=== PATIENT | male | born 1985 | race African-American/Black ===

== ENCOUNTER 2020-10-05 12:52 | Inpatient (IN) | payer OTHER ==
[~2020-10-05] VITALS: Ht 175.3 cm; Wt 127.9 kg
[2020-10-05] MEDS ORDERED: IV NORMAL SALINE 1000ML BAG 1,000 ML IV ONE ×2 (18:30→22:00)
--- NOTE | 2020-10-05 18:47 | RAD ---
EXAM: Chest, single view. HISTORY: Jaundice. COMPARISON: None. FINDINGS: A frontal view of the chest is obtained. There is no infiltrate, pleural effusion or pneumo thorax. The heart is normal in size. IMPRESSION: No acute pulmonary finding. Electronically signed by: Stacey Warren MD (10/05/2020 6:44 PM) [facility]
[2020-10-05] MEDS ORDERED: fentaNYL PF VIAL 100 MCG/2 ML VIAL IVP ONE (19:00)
[2020-10-05 20:56] LABS: BASO # 0.1 x10^3/uL (0.0-0.2); BASO % 1 % (0-3); EOS % 0 % (0-3); HEMATOCRIT 42.6 % (39.0-53.0); HEMOGLOBIN 14.7 g/dL (13.0-17.5); LYMPH # 1.7 x10^3/uL (1.0-4.8); LYMPH % 13 % (24-48); MEAN CORPUSCULAR HEMOGLOBIN 33 pg (25-35); MEAN CORPUSCULAR HGB CONC 34 g/dL (31-37); MEAN CORPUSCULAR VOLUME 96 fL (79-100); MONO # 1.7 x10^3/uL (0.0-1.1); MONO % 12 % (0-9); NEUT # 10.5 x10^3/uL (1.8-7.7); NEUT % 75 % (31-73); PLATELET COUNT 119 x10^3/uL (140-400); RED BLOOD COUNT 4.43 x10^6/uL (4.30-5.70); RED CELL DISTRIBUTION WIDTH 15.1 % (11.5-14.5)
--- NOTE | 2020-10-05 20:57 | RAD ---
EXAM: Abdomen sonogram. HISTORY: Pain. TECHNIQUE: Sonographic imaging of the abdomen was performed. COMPARISON: None. FINDINGS: The exam is limited due to bowel gas and body habitus. The liver is enlarged. There is hepa tic steatosis. No focal hepatic lesion is seen. There is cholelithiasis. The gallbladder is distended and there is gallbladder wall thickening. The common bile duct is not well seen. The pancreas is obs cured due to bowel gas. The right kidney and inferior vena cava are unremarkable. IMPRESSION: 1. Hepatomegaly and hepatic steatosis. 2. Cholelithiasis. There is superimposed gallbladder distention and gallbladder wall thickening. This may be due to intrinsic liver disease or cholecystitis. Correlate with symptomatology. The common bi le duct is well seen. 3. Obscured pancreas due to aforementioned study limitations. Electronically signed by: Stacey Warren MD (10/05/2020 8:54 PM) [facility]
--- NOTE | 2020-10-05 20:58 | RAD ---
EXAM: Left lower extremity venous Doppler sonogram. HISTORY: Pain and swelling. TECHNIQUE: Mirza scale and color Doppler sonographic evaluation of the left lower extremity veins with spectral waveform analysis was performed. FINDINGS: The exam is limited due to patient body habitus. There is normal color flow, normal angle sibility and there are normal spectral waveforms in the common femoral, superficial femoral, poplitea l, posterior tibial and greater saphenous veins. There is left lower 70 soft tissue edema. There are enlarged left inguinal lymph nodes with thickened cortices, the largest of which measures 3.1 cm in l sunny axis. IMPRESSION: 1. No Doppler evidence of lower extremity deep venous thrombosis. 2. Left lower extremity soft tissue edema. 3. Left inguinal lymphadenopathy. Electronically signed by: Stacey Warren MD (10/05/2020 8:55 PM) [facility]
[2020-10-05 21:04] LABS: CALCIUM 9.1 mg/dL (8.5-10.1); CREATININE 0.9 mg/dL (0.7-1.3); GFR 116.2; POTASSIUM 3.8 mmol/L (3.5-5.1)
[2020-10-05 21:10] LABS: ALBUMIN 3.4 g/dL (3.4-5.0); ALBUMIN/GLOBULIN RATIO 0.7 (1.0-1.7); DIRECT BILIRUBIN 3.8 mg/dL (0.0-0.2)
[2020-10-05] MEDS ORDERED: PIP/TAZO PER PHARMACY MC PRN (21:45)
[2020-10-05] MEDS ORDERED: ONDANSETRON PF 4 MG/2 ML VIAL. IVP PRN (21:45)
--- NOTE | 2020-10-05 21:54 | PHYS DOC ---
Past Medical History Past Surgical History: Other Additional Past Surgical Histo: 2 ANKLE SX Smoking Status: Never Smoker Alcohol Use: Heavy General Adult EDM: Chief Complaint: ABDOMINAL PAIN HPI: HPI: Patient is a 35 year old male who presents to the emergency department stating he was told to come to the ER for admission by staff at another emergency department so he could be admitted for surgery. Patient reports he has had upper abdominal pain for the past week, intermittent vomiting, intermittent nausea, reports his left lower extremity became very large overnight. Patient reports his pain in his abdomen and left lower extremity at a 7 out of 10. Patient denies chest pain, chest congestion, shortness of breath, recent fever or chills. Patient reports he does not smoke cigarettes, does not use any ill icit drugs, but drinks whiskey from a pint to a pint and a half every 5 days for the past several years. Patient reports he takes Suboxone daily for the past [address] Cody Weiner. Patient reports he was told not to take codeine because he is on Suboxone. Patient states his last surgery was in October 2019 right ankle fracture repaired at [facility]. She denies any other physical complaints or physical concerns. Review of Systems: Review of Systems: 14 body systems of review of systems have been reviewed. See HPI for pertinent positives and negative responses, otherwise all other systems are negative, nonpertinent or noncontributory. Constitutional: Negative except as outlined in HPI above. Skin: Negative except as outlined in HPI above. Eyes: Negative except as outlined in HPI above. HENT: Negative except as outlined in HPI above. Respiratory: Negative except as outlined in HPI above. Cardiovascular: Negative except as outlined in HPI above. GI: Negative except as outlined in HPI above. : Negative except as outlined in HPI above. Musculoskeletal: Negative except as outlined in HPI above. Integument: Negative except as outlined in HPI above. Neurologic: Negative except as outlined in HPI above. Endocrine: Negative except as outlined in HPI above. Lymphatic: Negative except as outlined in HPI above. Psychiatric: Negative except as outlined in HPI above. Heart Score: C/O Chest Pain: No Risk Factors: Risk Factors: DM, Current or recent (<one month) smoker, HTN, HLP, family history of CAD, obesity. Risk Scores: Score 0 - 3: 2.5% MACE over next 6 weeks - Discharge Home Score 4 - 6: 20.3% MACE over next 6 weeks - Admit for Clinical Observation Score 7 - 10: 72.7% MACE over next 6 weeks - Early Invasive Strategies Current Medications: Current Medications Medications (Trade) Dose Ordered Sig/Deangelo Start Time Stop Time Status Last Admin Dose Admin Fentanyl Citrate (Fentanyl 2ml Vial) 75 mcg 1X ONCE 10/05/20 19:00 10/05/20 19:01 DC 10/05/20 21:00 75 MCG Morphine Sulfate (Morphine Sulfate) 4 mg PRN Q2HR PRN 10/05/20 21:45 10/06/20 21:44 UNV Ondansetron HCl (Zofran) 4 mg PRN Q8HRS PRN 10/05/20 21:45 10/06/20 21:44 UNV Piperacillin Sod/ Tazobactam Sod (Zosyn Per Pharmacy) 1 each PRN DAILY PRN 10/05/20 21:45 UNV Sodium Chloride 1,000 ml @ 125 mls/hr 1X ONCE 10/05/20 21:45 10/06/20 05:44 UNV Allergies: Allergies: Allergies Coded Allergies Type Severity Reaction Last Updated Verified codeine Allergy Unknown 10/05/20 Yes Physical Exam: PE: Constitutional: Well developed, well nourished, no acute distress, non-toxic appearance. 35-year-old male no apparent distress. HENT: Normocephalic, atraumatic, bilateral external ears normal, oropharynx moist, no oral exudates, nose normal. No lymphadenopathy of the head and neck appreciated, patient speaking in normal voice tones. Eyes: PERRLA, EOMI, conjunctiva normal, no discharge. Scleral jaundice othe rwise no abnormality of the eyes. Neck: Normal range of motion, no tenderness, supple, no stridor. No nuchal rigidity, no meningeal signs. Cardiovascular:Heart rate regular rhythm, no murmur Lungs & Thorax: Bilateral breath sounds clear to auscultation, all lung gorman, no adventitious lung sounds appreciated. Abdomen: Bowel sounds normal, soft, no tenderness, no masses, no pulsatile masses. Abdomen round, obese, remains soft, no skin discoloration of the abdomen, no ecchymosis appreciated. Skin: Warm, dry, no erythema, no rash. Back: No tenderness, no CVA tenderness. Extremities: No tenderness, no cyanosis, no clubbing, ROM intact, no edema. Except for left lower extremity, 3+ edema from mid thigh to foot. Unable to appreciate pulses, distal cap refill less than 2 seconds. Skin is intact. No loss of sensation. Neurologic: Alert and oriented X 3, normal motor function, normal sensory function, no focal deficits noted. Psychologic: Affect normal, judgement normal, mood normal. Current Patient Data: Labs: Laboratory Tests Test 10/05/20 20:45 White Blood Count 14.0 x10^3/uL (4.0-11.0) H Red Blood Count 4.43 x10^6/uL (4.30-5.70) Hemoglobin 14.7 g/dL (13.0-17.5) Hematocrit 42.6 % (39.0-53.0) Mean Corpuscular Volume 96 fL (79-100) Mean Corpuscular Hemoglobin 33 pg (25-35) Mean Corpuscular Hemoglobin Concent 34 g/dL (31-37) Red Cell Distribution Width 15.1 % (11.5-14.5) H Platelet Count 119 x10^3/uL (140-400) L Neutrophils (%) (Auto) 75 % (31-73) H Lymphocytes (%) (Auto) 13 % (24-48) L Monocytes (%) (Auto) 12 % (0-9) H Eosinophils (%) (Auto) 0 % (0-3) Basophils (%) (Auto) 1 % (0-3) Neutrophils # (Auto) 10.5 x10^3/uL (1.8-7.7) H Lymphocytes # (Auto) 1.7 x10^3/uL (1.0-4.8) Monocytes # (Auto) 1.7 x10^3/uL (0.0-1.1) H Eosinophils # (Auto) 0.0 x10^3/uL (0.0-0.7) Basophils # (Auto) 0.1 x10^3/uL (0.0-0.2) Sodium Level 132 mmol/L (136-145) L Potassium Level 3.8 mmol/L (3.5-5.1) Chloride Level 97 mmol/L (98-107) L Carbon Dioxide Level 29 mmol/L (21-32) Anion Gap 6 (6-14) Blood Urea Nitrogen 14 mg/dL (8-26) Creatinine 0.9 mg/dL (0.7-1.3) Estimated GFR (Cockcroft-Gault) 116.2 BUN/Creatinine Ratio 16 (6-20) Glucose Level 114 mg/dL (70-99) H Calcium Level 9.1 mg/dL (8.5-10.1) Total Bilirubin 5.0 mg/dL (0.2-1.0) H Direct Bilirubin 3.8 mg/dL (0.0-0.2) H Aspartate Amino Transferase (AST) 119 U/L (15-37) H Alanine Aminotransferase (ALT) 64 U/L (16-63) H Alkaline Phosphatase 133 U/L (46-116) H C-Reactive Protein, Quantitative 207.2 mg/L (0-3.3) H Total Protein 8.0 g/dL (6.4-8.2) Albumin 3.4 g/dL (3.4-5.0) Albumin/Globulin Ratio 0.7 (1.0-1.7) L Lipase 89 U/L (73-393) Ethyl Alcohol Level < 10 mg/dL (0-10) Laboratory Tests 10/05/20 20:45 Laboratory Tests 10/05/20 20:45 Vital Signs: Vital Signs Date Time Temp Pulse Resp B/P (MAP) Pulse Ox O2 Delivery O2 Flow Rate FiO2 10/05/20 17:30 98.7 97 16 170/98 96 Room Air 98.7 EKG: EKG: EKG performed at 1817 by ED nursing staff shows a normal sinus rhythm without ectopy, heart rate 91 bpm, IN interval 0.136, QTc interval 0.442, no acute STEMI, no ACS, no acute ischemia appreciated, EKG interpreted by ED attending physician Dr. Suarez. Radiology/Procedures: Radiology/Procedures: PATIENT: EMPERATRIZ PAREDESACCOUNT: [id number] : 1985 LOCATION: ER AGE: 35 SEX: M EXAM STATUS: REG ER ORD. PHYSICIAN: EMPERATRIZ ARMSTRONG APRN REASON: jaundice PROCEDURE: CHEST AP ONLY EXAM: Chest, single view. HISTORY: Jaundice. COMPARISON: None. FINDINGS: A frontal view of the chest is obtained. There is no infiltrate, pleural effusion or pneumothorax. The heart is normal in size. IMPRESSION: No acute pulmonary finding. Electronically signed by: Stacey Dougherty MD (10/05/2020 6:44 PM) [facility] PATIENT: EMPERATRIZ PAREDESACCOUNT: [id number] : 1985 LOCATION: ER AGE: 35 SEX: M EXAM STATUS: REG ER ORD. PHYSICIAN: EMPERATRIZ ARMSTRONG APRN REASON: Lower extremity swelling with pain PROCEDURE: VENOUS LOWER EXTREMITY LEFT EXAM: Left lower extremity venous Doppler sonogram. HISTORY: Pain and swelling. TECHNIQUE: Mirza scale and color Doppler sonographic evaluation of the left lower extremity veins with spectral waveform analysis was performed. FINDINGS: The exam is limited due to patient body habitus. There is normal color flow, normal compressibility and there are normal spectral waveforms in the common femoral, superficial femoral, popliteal, posterior tibial and greater saphenous veins. There is left lower 70 soft tissue edema. There are enlarged left inguinal lymph nodes with thickened cortices, the largest of which measures 3.1 cm in long axis. IMPRESSION: 1. No Doppler evidence of lower extremity deep venous thrombosis. 2. Left lower extremity soft tissue edema. 3. Left inguinal lymphadenopathy. Electronically signed by: Stacey Dougherty MD (10/05/2020 8:55 PM) [facility] DICTATED and SIGNED BY: STACEY DOUGHERTY MD DATE: 10/05/20 [id number] PATIENT: EMPERATRIZ PAREDESACCOUNT: [id number] : 1985 LOCATION: ER AGE: 35 SEX: M EXAM STATUS: REG ER ORD. PHYSICIAN: EMPERATRIZ ARMSTRONG APRN REASON: Upper abdominal pain with gallbladder disease, acute jaundice. PROCEDURE: ABDOMEN LTD EXAM: Abdomen sonogram. HISTORY: Pain. TECHNIQUE: Sonographic imaging of the abdomen was performed. COMPARISON: None. FINDINGS: The exam is limited due to bowel gas and body habitus. The liver is e nlarged. There is hepatic steatosis. No focal hepatic lesion is seen. There is cholelithiasis. The gallbladder is distended and there is gallbladder wall thickening. The common bile duct is not well seen. The pancreas is obscured due to bowel gas. The right kidney and inferior vena cava are unremarkable. IMPRESSION: 1. Hepatomegaly and hepatic steatosis. 2. Cholelithiasis. There is superimposed gallbladder distention and gallbladder wall thickening. This may be due to intrinsic liver disease or cholecystitis. Correlate with symptomatology. The common bile duct is well seen. 3. Obscured pancreas due to aforementioned study limitations. Electronically signed by: Stacey Dougherty MD (10/05/2020 8:54 PM) [facility] Course & Med Decision Making: Course & Med Decision Making Pertinent Labs and Imaging studies reviewed. (See chart for details) 35-year-old male, vital signs reviewed, presents to the emergency department stating that he was told to come here by another emergency department to be admitted and to have surgery. Patient's physical examination concerning for jaundice, liver disease, rule out left lower extremity DVT, cholecystitis. Will order imaging of left lower extremity, limited abdomen sono, labs. Patient's labs concerning for leukocytosis, hyponatremia, hyperbilirubinemia, increased liver enzymes, patient's reported imaging shows cholecystitis, no DVT of the left lower extremity however adenopathy of the left groin area. Discussed with patient will admit, patient is amenable to this plan. Discussed patient case and emergency department work-up with [facility] inpatient physician Dr. Stoddard who agrees patient's case warrants admission, Dr. Stoddard recommended Zosyn antibiotic per pharmacy, consult infectious disease, GI, surgery, admit to medical surgical unit. Patient is awaiting room number from plumbing warehouse helper at this time. Patient is hemodynamically stable and in no apparent distress at admission time. Dragon Disclaimer: Dragon Disclaimer: This electronic medical record was generated, in whole or in part, using a voice recognition dictation system. Departure Departure Impression: Primary Impression: Hyperbilirubinemia Additional Impressions: Jaundice Hyponatremia Elevated liver enzymes Cholecystitis Inguinal lymphadenopathy Disposition: ADMITTED INPATIENT Admitting Physician: HIMS (Admit to Dr. Stoddard to medical surgical unit.) Condition: STABLE Referrals: NO PCP (PCP) EMPERATRIZ ARMSTRONG APRN Oct 05, 2020 21:54
[2020-10-05] MEDS: PIPERACILLIN/TAZOBACTAM 3.375 GM in IV NORMAL SALINE 50ML 50 ML IV SCH (22:00)
[2020-10-05 23:40] VITALS: BP 152/98
[2020-10-06] MEDS: MORPHINE SULFATE 4 MG/ML INJ. IVP PRN ×3 (00:26→15:11)
[2020-10-06 03:00] VITALS: BP 133/78
[2020-10-06] MEDS ORDERED: BUPR8TAB SL (03:56)
[2020-10-06 04:29] LABS: BASO # 0.1 x10^3/uL (0.0-0.2); BASO % 0 % (0-3); EOS % 0 % (0-3); HEMATOCRIT 38.3 % (39.0-53.0); HEMOGLOBIN 13.3 g/dL (13.0-17.5); LYMPH # 2.4 x10^3/uL (1.0-4.8); LYMPH % 17 % (24-48); MEAN CORPUSCULAR HEMOGLOBIN 34 pg (25-35); MEAN CORPUSCULAR HGB CONC 35 g/dL (31-37); MEAN CORPUSCULAR VOLUME 97 fL (79-100); MONO % 14 % (0-9); NEUT # 9.4 x10^3/uL (1.8-7.7); NEUT % 68 % (31-73); PLATELET COUNT 113 x10^3/uL (140-400); RED BLOOD COUNT 3.95 x10^6/uL (4.30-5.70); WHITE BLOOD COUNT 13.9 x10^3/uL (4.0-11.0)
[2020-10-06 04:35] LABS: PROTHROMBIN TIME PATIENT 16.1 SEC (11.7-14.0)
[2020-10-06 04:53] LABS: ALBUMIN 2.8 g/dL (3.4-5.0); ALBUMIN/GLOBULIN RATIO 0.6 (1.0-1.7); CALCIUM 8.6 mg/dL (8.5-10.1); CREATININE 0.8 mg/dL (0.7-1.3); GFR 133.1; POTASSIUM 3.6 mmol/L (3.5-5.1); TOTAL BILIRUBIN 4.8 mg/dL (0.2-1.0); TOTAL PROTEIN 7.2 g/dL (6.4-8.2)
[2020-10-06] MEDS: PIPERACILLIN/TAZOBACTAM 3.375 GM in IV NORMAL SALINE 50ML 50 ML IV SCH (05:35)
[2020-10-06 05:43] LABS: BILIRUBIN,URINE MODERATE (NEG); CLARITY,URINE CLEAR; NITRITE,URINE NEGATIVE (NEG); PROTEIN,URINE NEGATIVE (NEG-TRACE)
[2020-10-06 05:51] LABS: % LYMPHS 20 % (24-48); % MONOS 11 % (0-10); % SEGS 69 % (35-66)
[2020-10-06 05:52] LABS: PLT ESTIMATE DECREASED (ADEQUATE)
[2020-10-06 06:05] LABS: COLOR,URINE AMBER
[2020-10-06 06:08] LABS: BACTERIA,URINE 0 /HPF (0-FEW); RBC,URINE 20-40 /HPF (0-2); WBC,URINE OCC /HPF (0-4)
[2020-10-06] MEDS ORDERED: ACETAMINOPHEN 325 MG TABLET. PO PRN (06:45)
[2020-10-06] MEDS ORDERED: MAGNESIUM HYDROXIDE 2,400 MG/30 ML ORAL.SUSP. PO PRN (06:45)
[2020-10-06] MEDS ORDERED: MAG HYDROX/ALUMINUM HYD/SIMETH 30 ML ORAL.SUSP PO PRN (06:45)
[2020-10-06] MEDS ORDERED: CALCIUM CARBONATE 500 MG TAB.CHEW PO PRN (06:45)
[2020-10-06] MEDS ORDERED: ONDANSETRON PF 4 MG/2 ML VIAL. IVP PRN (06:45)
--- NOTE | 2020-10-06 06:57 | PDOC1 ---
History and Physical Date of Admission Date of Admission DATE: 10/06/20 TIME: 06:30 Identification/Chief Complaint Chief Complaint Abdominal pain Source Source: Chart review, Patient History of Present Illness History of Present Illness Patient is a 35-year-old male with past medical history alcohol abuse, narcotic dependence, morbid obesity, who presents to the ED with complaints of left upper quadrant abdominal pain for the past week. He reports abdominal pain 7/10, with associated intermittent nausea and vomiting. Also notes left lower extremity swelling and pain for the past 2 days. He notes associated drainage from his left ankle, but is unsure if this is been purulent drainage. He does have a history of left lower extremity surgery requiring surgical fixation; states that this was complicated by MRSA infected hardware, which was subsequently removed. He reports regular heavy alcohol intake and takes daily Suboxone for history of narcotic dependence. Labs on admission showed WBC 14, platelets 119, sodium 132, CBG 114, AST 119, ALT 64, CRP 207.2, albumin 2.8, PT 16.1, INR 1.3. Abdominal ultrasound showed cholelithiasis, superimposed gallbladder distention and gallbladder wall thickening, suggestive of cholecystitis. He received bro ad-spectrum antibiotics and IV fluids. Will admit for further medical management. Past Medical History Past Medical History Narcotic dependence, alcohol abuse, morbid obesity Past Surgical History Past Surgical History Left ankle surgery Social History Smoke: No ALCOHOL: heavy Drugs: None Current Problem List Problem List Problems Medical Problems: (1) Cholecystitis Status: Acute (2) Elevated liver enzymes Status: Acute (3) Hyperbilirubinemia Status: Acute (4) Hyponatremia Status: Acute (5) Inguinal lymphadenopathy Status: Acute (6) Jaundice Status: Acute Current Medications Current Medications Current Medications Fentanyl Citrate (Fentanyl 2ml Vial) 75 mcg 1X ONCE IVP Last administered on 10/05/20at 21:00; Start 10/05/20 at 19:00; Stop 10/05/20 at 19:01; Status DC Sodium Chloride 1,000 ml @ 1,000 mls/hr 1X ONCE IV Last administered on 10/05/20at 21:00; Start 10/05/20 at 18:30; Stop 10/05/20 at 19:29; Status DC Ondansetron HCl (Zofran) 4 mg PRN Q8HRS PRN IVP NAUSEA/VOMITING 1ST CHOICE; Start 10/05/20 at 21:45; Stop 10/06/20 at 21:44 Morphine Sulfate (Morphine Sulfate) 4 mg PRN Q2HR PRN IVP SEVERE PAIN 7-10 Last administered on 10/06/20at 05:33; Start 10/05/20 at 21:45; Stop 10/06/20 at 21:44 Piperacillin Sod/ Tazobactam Sod (Zosyn Per Pharmacy) 1 each PRN DAILY PRN MC SEE COMMENTS; Start 10/05/20 at 21:45 Sodium Chloride 1,000 ml @ 125 mls/hr 1X ONCE IV Last administered on 10/06/20at 00:27; Start 10/05/20 at 22:00; Stop 10/06/20 at 05:59; Status DC Piperacillin Sod/ Tazobactam Sod 3.375 gm/Sodium Chloride 50 ml @ 100 mls/hr Q6HRS IV Last administered on 10/06/20at 05:35; Start 10/05/20 at 22:00 Active Scripts Active Reported Buprenorphine Hcl 8 Mg Tab.subl 8 Mg SL DAILY 30 Days Allergies Allergies: Coded Allergies: I S O L A T I O N *CONTACT* (Verified Allergy, Unknown, 10/06/20) Hx MRSA, VRE No Known Allergies (Verified Allergy, Unknown, 10/06/20) ROS Review of System GENERAL: No history of weight change, weakness or fevers. SKIN: No bruising, hair changes or rashes. EYES: No blurred, double or loss of vision. NOSE AND THROAT: No history of nosebleeds, hoarseness or sore throat. HEART: Denies chest pain, denies palpitations. LUNGS: Denies cough, hemoptysis, wheezing or shortness of breath. GASTROINTESTINAL: Abdominal pain, nausea, vomiting. GENITOURINARY: Denies dysuria, frequency, urgency, hematuria. NEUROLOGIC: Denies history of numbness, tingling, tremor or weakness. PSYCHIATRIC: Denies anxiety, denies depression. ENDOCRINE: No history of heat or cold intolerance, polyuria or polydipsia. EXTREMITIES: Denies muscle weakness, joint pain, pain on walking or stiffness. Physical Exam Physical Exam General: Alert, Oriented X3, Cooperative, No acute distress. Morbidly obese. HEENT: PERRLA, EOMI Lungs: Clear to auscultation, Normal air movement Heart: RRR, no murmurs Cardiovascular: S1, S2 Abdomen: Normal bowel sounds, Soft, No tenderness Extremities: Left lower extremity 3+ edema. Left inguinal lymphadenopathy. No clubbing, No cyanosis Skin: Patchy areas of erythema extending from left ankle to proximal left thigh. Neuro: Normal speech, Normal tone, Sensation intact Psych/Mental Status: Mental status NL, Mood NL Vitals Vitals Vital Signs Date Time Temp Pulse Resp B/P (MAP) Pulse Ox O2 Delivery O2 Flow Rate FiO2 10/06/20 06:03 96 Room Air 10/06/20 03:00 98.7 89 18 133/78 (96) 98.7 Labs Labs Laboratory Tests Test 10/05/20 20:45 10/06/20 03:20 10/06/20 05:25 White Blood Count 14.0 x10^3/uL (4.0-11.0) 13.9 x10^3/uL (4.0-11.0) Red Blood Count 4.43 x10^6/uL (4.30-5.70) 3.95 x10^6/uL (4.30-5.70) Hemoglobin 14.7 g/dL (13.0-17.5) 13.3 g/dL (13.0-17.5) Hematocrit 42.6 % (39.0-53.0) 38.3 % (39.0-53.0) Mean Corpuscular Volume 96 fL (79-100) 97 fL (79-100) Mean Corpuscular Hemoglobin 33 pg (25-35) 34 pg (25-35) Mean Corpuscular Hemoglobin Concent 34 g/dL (31-37) 35 g/dL (31-37) Red Cell Distribution Width 15.1 % (11.5-14.5) 15.0 % (11.5-14.5) Platelet Count 119 x10^3/uL (140-400) 113 x10^3/uL (140-400) Neutrophils (%) (Auto) 75 % (31-73) 68 % (31-73) Lymphocytes (%) (Auto) 13 % (24-48) 17 % (24-48) Monocytes (%) (Auto) 12 % (0-9) 14 % (0-9) Eosinophils (%) (Auto) 0 % (0-3) 0 % (0-3) Basophils (%) (Auto) 1 % (0-3) 0 % (0-3) Neutrophils # (Auto) 10.5 x10^3/uL (1.8-7.7) 9.4 x10^3/uL (1.8-7.7) Lymphocytes # (Auto) 1.7 x10^3/uL (1.0-4.8) 2.4 x10^3/uL (1.0-4.8) Monocytes # (Auto) 1.7 x10^3/uL (0.0-1.1) 2.0 x10^3/uL (0.0-1.1) Eosinophils # (Auto) 0.0 x10^3/uL (0.0-0.7) 0.0 x10^3/uL (0.0-0.7) Basophils # (Auto) 0.1 x10^3/uL (0.0-0.2) 0.1 x10^3/uL (0.0-0.2) Sodium Level 132 mmol/L (136-145) 134 mmol/L (136-145) Potassium Level 3.8 mmol/L (3.5-5.1) 3.6 mmol/L (3.5-5.1) Chloride Level 97 mmol/L (98-107) 101 mmol/L (98-107) Carbon Dioxide Level 29 mmol/L (21-32) 26 mmol/L (21-32) Anion Gap 6 (6-14) 7 (6-14) Blood Urea Nitrogen 14 mg/dL (8-26) 14 mg/dL (8-26) Creatinine 0.9 mg/dL (0.7-1.3) 0.8 mg/dL (0.7-1.3) Estimated GFR (Cockcroft-Gault) 116.2 133.1 BUN/Creatinine Ratio 16 (6-20) 18 (6-20) Glucose Level 114 mg/dL (70-99) 106 mg/dL (70-99) Calcium Level 9.1 mg/dL (8.5-10.1) 8.6 mg/dL (8.5-10.1) Total Bilirubin 5.0 mg/dL (0.2-1.0) 4.8 mg/dL (0.2-1.0) Direct Bilirubin 3.8 mg/dL (0.0-0.2) Aspartate Amino Transf (AST/SGOT) 119 U/L (15-37) 92 U/L (15-37) Alanine Aminotransferase (ALT/SGPT) 64 U/L (16-63) 49 U/L (16-63) Alkaline Phosphatase 133 U/L (46-116) 113 U/L (46-116) C-Reactive Protein, Quantitative 207.2 mg/L (0-3.3) Total Protein 8.0 g/dL (6.4-8.2) 7.2 g/dL (6.4-8.2) Albumin 3.4 g/dL (3.4-5.0) 2.8 g/dL (3.4-5.0) Albumin/Globulin Ratio 0.7 (1.0-1.7) 0.6 (1.0-1.7) Lipase 89 U/L (73-393) Ethyl Alcohol Level < 10 mg/dL (0-10) Segmented Neutrophils % 69 % (35-66) Lymphocytes % 20 % (24-48) Monocytes % 11 % (0-10) Platelet Estimate Decreased (ADEQUATE) Large Platelets Occ Prothrombin Time 16.1 SEC (11.7-14.0) Prothromb Time International Ratio 1.3 (0.8-1.1) Urine Collection Type Unknown Urine Color Johanny Urine Clarity Clear Urine pH 6.0 (<5.0-8.0) Urine Specific [place] 1.025 (1.000-1.030) Urine Protein Negative mg/dL (NEG-TRACE) Urine Glucose (UA) Negative mg/dL (NEG) Urine Ketones (Stick) Trace mg/dL (NEG) Urine Blood Large (NEG) Urine Nitrite Negative (NEG) Urine Bilirubin Moderate (NEG) Urine Urobilinogen Dipstick 4.0 mg/dL (0.2 mg/dL) Urine Leukocyte Esterase Trace (NEG) Urine RBC 20-40 /HPF (0-2) Urine WBC Occ /HPF (0-4) Urine Squamous Epithelial Cells Occ /LPF Urine Bacteria 0 /HPF (0-FEW) Urine Mucus Slight /LPF Laboratory Tests Test 10/05/20 20:45 10/06/20 03:20 10/06/20 05:25 White Blood Count 14.0 x10^3/uL (4.0-11.0) 13.9 x10^3/uL (4.0-11.0) Red Blood Count 4.43 x10^6/uL (4.30-5.70) 3.95 x10^6/uL (4.30-5.70) Hemoglobin 14.7 g/dL (13.0-17.5) 13.3 g/dL (13.0-17.5) Hematocrit 42.6 % (39.0-53.0) 38.3 % (39.0-53.0) Mean Corpuscular Volume 96 fL (79-100) 97 fL (79-100) Mean Corpuscular Hemoglobin 33 pg (25-35) 34 pg (25-35) Mean Corpuscular Hemoglobin Concent 34 g/dL (31-37) 35 g/dL (31-37) Red Cell Distribution Width 15.1 % (11.5-14.5) 15.0 % (11.5-14.5) Platelet Count 119 x10^3/uL (140-400) 113 x10^3/uL (140-400) Neutrophils (%) (Auto) 75 % (31-73) 68 % (31-73) Lymphocytes (%) (Auto) 13 % (24-48) 17 % (24-48) Monocytes (%) (Auto) 12 % (0-9) 14 % (0-9) Eosinophils (%) (Auto) 0 % (0-3) 0 % (0-3) Basophils (%) (Auto) 1 % (0-3) 0 % (0-3) Neutrophils # (Auto) 10.5 x10^3/uL (1.8-7.7) 9.4 x10^3/uL (1.8-7.7) Lymphocytes # (Auto) 1.7 x10^3/uL (1.0-4.8) 2.4 x10^3/uL (1.0-4.8) Monocytes # (Auto) 1.7 x10^3/uL (0.0-1.1) 2.0 x10^3/uL (0.0-1.1) Eosinophils # (Auto) 0.0 x10^3/uL (0.0-0.7) 0.0 x10^3/uL (0.0-0.7) Basophils # (Auto) 0.1 x10^3/uL (0.0-0.2) 0.1 x10^3/uL (0.0-0.2) Sodium Level 132 mmol/L (136-145) 134 mmol/L (136-145) Potassium Level 3.8 mmol/L (3.5-5.1) 3.6 mmol/L (3.5-5.1) Chloride Level 97 mmol/L (98-107) 101 mmol/L (98-107) Carbon Dioxide Level 29 mmol/L (21-32) 26 mmol/L (21-32) Anion Gap 6 (6-14) 7 (6-14) Blood Urea Nitrogen 14 mg/dL (8-26) 14 mg/dL (8-26) Creatinine 0.9 mg/dL (0.7-1.3) 0.8 mg/dL (0.7-1.3) Estimated GFR (Cockcroft-Gault) 116.2 133.1 BUN/Creatinine Ratio 16 (6-20) 18 (6-20) Glucose Level 114 mg/dL (70-99) 106 mg/dL (70-99) Calcium Level 9.1 mg/dL (8.5-10.1) 8.6 mg/dL (8.5-10.1) Total Bilirubin 5.0 mg/dL (0.2-1.0) 4.8 mg/dL (0.2-1.0) Direct Bilirubin 3.8 mg/dL (0.0-0.2) Aspartate Amino Transf (AST/SGOT) 119 U/L (15-37) 92 U/L (15-37) Alanine Aminotransferase (ALT/SGPT) 64 U/L (16-63) 49 U/L (16-63) Alkaline Phosphatase 133 U/L (46-116) 113 U/L (46-116) C-Reactive Protein, Quantitative 207.2 mg/L (0-3.3) Total Protein 8.0 g/dL (6.4-8.2) 7.2 g/dL (6.4-8.2) Albumin 3.4 g/dL (3.4-5.0) 2.8 g/dL (3.4-5.0) Albumin/Globulin Ratio 0.7 (1.0-1.7) 0.6 (1.0-1.7) Lipase 89 U/L (73-393) Ethyl Alcohol Level < 10 mg/dL (0-10) Segmented Neutrophils % 69 % (35-66) Lymphocytes % 20 % (24-48) Monocytes % 11 % (0-10) Platelet Estimate Decreased (ADEQUATE) Large Platelets Occ Prothrombin Time 16.1 SEC (11.7-14.0) Prothromb Time International Ratio 1.3 (0.8-1.1) Urine Collection Type Unknown Urine Color Johanny Urine Clarity Clear Urine pH 6.0 (<5.0-8.0) Urine Specific [place] 1.025 (1.000-1.030) Urine Protein Negative mg/dL (NEG-TRACE) Urine Glucose (UA) Negative mg/dL (NEG) Urine Ketones (Stick) Trace mg/dL (NEG) Urine Blood Large (NEG) Urine Nitrite Negative (NEG) Urine Bilirubin Moderate (NEG) Urine Urobilinogen Dipstick 4.0 mg/dL (0.2 mg/dL) Urine Leukocyte Esterase Trace (NEG) Urine RBC 20-40 /HPF (0-2) Urine WBC Occ /HPF (0-4) Urine Squamous Epithelial Cells Occ /LPF Urine Bacteria 0 /HPF (0-FEW) Urine Mucus Slight /LPF Images Images PATIENT: EMPERATRIZ PAREDESACCOUNT: [id number] : 1985 LOCATION: ER AGE: 35 SEX: M EXAM STATUS: REG ER ORD. PHYSICIAN: EMPERATRIZ ARMSTRONG APRN REASON: Upper abdominal pain with gallbladder disease, acute jaundice. PROCEDURE: ABDOMEN LTD EXAM: Abdomen sonogram. HISTORY: Pain. TECHNIQUE: Sonographic imaging of the abdomen was performed. COMPARISON: None. FINDINGS: The exam is limited due to bowel gas and body habitus. The liver is enlarged. There is hepatic steatosis. No focal hepatic lesion is seen. There is cholelithiasis. The gallbladder is distended and there is gallbladder wall thickening. The common bile duct is not well seen. The pancreas is obscured due to bowel gas. The right kidney and inferior vena cava are unremarkable. IMPRESSION: 1. Hepatomegaly and hepatic steatosis. 2. Cholelithiasis. There is superimposed gallbladder distention and gallbladder wall thickening. This may be due to intrinsic liver disease or cholecystitis. Correlate with symptomatology. The common bile duct is well seen. 3. Obscured pancreas due to aforementioned study limitations. PATIENT: VANESSA PAREDESUNT: [id number] : 1985 LOCATION: ER AGE: 35 SEX: M EXAM STATUS: REG ER ORD. PHYSICIAN: EMPERATRIZ ARMSTRONG APRN REASON: Lower extremity swelling with pain PROCEDURE: VENOUS LOWER EXTREMITY LEFT EXAM: Left lower extremity venous Doppler sonogram. HISTORY: Pain and swelling. TECHNIQUE: Mirza scale and color Doppler sonographic evaluation of the left lower extremity veins with spectral waveform analysis was performed. FINDINGS: The exam is limited due to patient body habitus. There is normal color flow, normal compressibility and there are normal spectral waveforms in the common femoral, superficial femoral, popliteal, posterior tibial and greater saphenous veins. There is left lower 70 soft tissue edema. There are enlarged le ft inguinal lymph nodes with thickened cortices, the largest of which measures 3.1 cm in long axis. IMPRESSION: 1. No Doppler evidence of lower extremity deep venous thrombosis. 2. Left lower extremity soft tissue edema. 3. Left inguinal lymphadenopathy. PATIENT: EMPERATRIZ PAREDESACCOUNT: [id number] : 1985 LOCATION: ER AGE: 35 SEX: M EXAM STATUS: REG ER ORD. PHYSICIAN: EMPERATRIZ ARMSTRONG APRN REASON: jaundice PROCEDURE: CHEST AP ONLY EXAM: Chest, single view. HISTORY: Jaundice. COMPARISON: None. FINDINGS: A frontal view of the chest is obtained. There is no infiltrate, pleural effusion or pneumothorax. The heart is normal in size. IMPRESSION: No acute pulmonary finding. VTE Prophylaxis Ordered VTE Prophylaxis Devices: No VTE Pharmacological Prophylaxi: Yes Assessment/Plan Assessment/Plan Acute cholecystitis Left lower extremity cellulitis Left inguinal lymphadenopathy Narcotic dependence Morbid obesity Plan: Continue treatment with IV Rocephin, per ID Consultation placed to general surgery, GI, and ID Left inguinal lymphadenopathy seen on ultrasound likely reactive due to infect ious process; recommend follow-up to ensure resolution. No evidence of DVT seen on ultrasound left lower extremity; will obtain echocardiogram. Resume home medications FEN - NPO PPX - Heparin FULL CODE Dispo - inpatient for above Patient names his (Ni Lee) as surrogate decision-maker Justifications for Admission Other Justification ROSIE TODD MD Oct 06, 2020 06:57
[2020-10-06] MEDS ORDERED: PERFLUTREN PROTEIN-A MICROSPHR 0.22 MG/ML 3 ML VIAL. IV ONE ×3 (08:43→09:00)
[2020-10-06] MEDS: NON FORMULARY ITEM (Buprenorphine Hcl 8 MG) SL SCH (09:00)
--- NOTE | 2020-10-06 09:02 | PDOC2 ---
GI CONSULT Date of Service: DATE: 10/06/20 TIME: 09:01 Reason For Consult: elevated bilirubin and LFTs HPI: HPI: 35 y/o male who recently had some upper abd pain and fever that have resolved. Biggest concern now is LLE pain/swelling. Denies reflux, dysphagia, n/v, chronic abd pain, diarrhea, constipation, hematochezia, melena, and weight loss. No previous EGD or colonoscopy. Was told he had gallstones at [facility] last week (when seen for abd pain) and needed to have them checked along w/ enlarged lymph nodes in groin but couldn't be transferred here so he was told to just come here on his own. Says he had a CT there. Denies liver, pancreas, or PUD history. H/o chronic narcotic use after accident caused mouth pain - now on buprenorphine. He's hungry. PMH: PMH: HTN, asthma, MRSA, VRE left ankle surgery/hardware/infection FH: Family History: No pertinent hx (denies GI cancers) Social History: Smoke: No ALCOHOL: heavy (1 pint daily now - heavier in past) Drugs: None ROS: GEN: +fever HEENT: Denies blurred vision, sore throat CV: Denies chest pain RESP: Denies shortness of air, cough GI: Per HPI : Denies hematuria, dysuria ENDO: Denies weight changes NEURO: Denies confusion, dizziness MSK: LLE pain SKIN: Denies jaundice, pruritus Vitals: Vitals: Vital Signs Date Time Temp Pulse Resp B/P (MAP) Pulse Ox O2 Delivery O2 Flow Rate FiO2 10/06/20 06:03 96 Room Air 10/06/20 03:00 98.7 89 18 133/78 (96) 98.7 Labs: Labs: Laboratory Tests Test 10/05/20 20:45 10/06/20 03:20 10/06/20 05:25 White Blood Count 14.0 x10^3/uL (4.0-11.0) 13.9 x10^3/uL (4.0-11.0) Red Blood Count 4.43 x10^6/uL (4.30-5.70) 3.95 x10^6/uL (4.30-5.70) Hemoglobin 14.7 g/dL (13.0-17.5) 13.3 g/dL (13.0-17.5) Hematocrit 42.6 % (39.0-53.0) 38.3 % (39.0-53.0) Mean Corpuscular Volume 96 fL (79-100) 97 fL (79-100) Mean Corpuscular Hemoglobin 33 pg (25-35) 34 pg (25-35) Mean Corpuscular Hemoglobin Concent 34 g/dL (31-37) 35 g/dL (31-37) Red Cell Distribution Width 15.1 % (11.5-14.5) 15.0 % (11.5-14.5) Platelet Count 119 x10^3/uL (140-400) 113 x10^3/uL (140-400) Neutrophils (%) (Auto) 75 % (31-73) 68 % (31-73) Lymphocytes (%) (Auto) 13 % (24-48) 17 % (24-48) Monocytes (%) (Auto) 12 % (0-9) 14 % (0-9) Eosinophils (%) (Auto) 0 % (0-3) 0 % (0-3) Basophils (%) (Auto) 1 % (0-3) 0 % (0-3) Neutrophils # (Auto) 10.5 x10^3/uL (1.8-7.7) 9.4 x10^3/uL (1.8-7.7) Lymphocytes # (Auto) 1.7 x10^3/uL (1.0-4.8) 2.4 x10^3/uL (1.0-4.8) Monocytes # (Auto) 1.7 x10^3/uL (0.0-1.1) 2.0 x10^3/uL (0.0-1.1) Eosinophils # (Auto) 0.0 x10^3/uL (0.0-0.7) 0.0 x10^3/uL (0.0-0.7) Basophils # (Auto) 0.1 x10^3/uL (0.0-0.2) 0.1 x10^3/uL (0.0-0.2) Sodium Level 132 mmol/L (136-145) 134 mmol/L (136-145) Potassium Level 3.8 mmol/L (3.5-5.1) 3.6 mmol/L (3.5-5.1) Chloride Level 97 mmol/L (98-107) 101 mmol/L (98-107) Carbon Dioxide Level 29 mmol/L (21-32) 26 mmol/L (21-32) Anion Gap 6 (6-14) 7 (6-14) Blood Urea Nitrogen 14 mg/dL (8-26) 14 mg/dL (8-26) Creatinine 0.9 mg/dL (0.7-1.3) 0.8 mg/dL (0.7-1.3) Estimated GFR (Cockcroft-Gault) 116.2 133.1 BUN/Creatinine Ratio 16 (6-20) 18 (6-20) Glucose Level 114 mg/dL (70-99) 106 mg/dL (70-99) Calcium Level 9.1 mg/dL (8.5-10.1) 8.6 mg/dL (8.5-10.1) Total Bilirubin 5.0 mg/dL (0.2-1.0) 4.8 mg/dL (0.2-1.0) Direct Bilirubin 3.8 mg/dL (0.0-0.2) Aspartate Amino Transf (AST/SGOT) 119 U/L (15-37) 92 U/L (15-37) Alanine Aminotransferase (ALT/SGPT) 64 U/L (16-63) 49 U/L (16-63) Alkaline Phosphatase 133 U/L (46-116) 113 U/L (46-116) C-Reactive Protein, Quantitative 207.2 mg/L (0-3.3) Total Protein 8.0 g/dL (6.4-8.2) 7.2 g/dL (6.4-8.2) Albumin 3.4 g/dL (3.4-5.0) 2.8 g/dL (3.4-5.0) Albumin/Globulin Ratio 0.7 (1.0-1.7) 0.6 (1.0-1.7) Lipase 89 U/L (73-393) Ethyl Alcohol Level < 10 mg/dL (0-10) Segmented Neutrophils % 69 % (35-66) Lymphocytes % 20 % (24-48) Monocytes % 11 % (0-10) Platelet Estimate Decreased (ADEQUATE) Large Platelets Occ Prothrombin Time 16.1 SEC (11.7-14.0) Prothromb Time International Ratio 1.3 (0.8-1.1) Urine Collection Type Unknown Urine Color Johanny Urine Clarity Clear Urine pH 6.0 (<5.0-8.0) Urine Specific [place] 1.025 (1.000-1.030) Urine Protein Negative mg/dL (NEG-TRACE) Urine Glucose (UA) Negative mg/dL (NEG) Urine Ketones (Stick) Trace mg/dL (NEG) Urine Blood Large (NEG) Urine Nitrite Negative (NEG) Urine Bilirubin Moderate (NEG) Urine Urobilinogen Dipstick 4.0 mg/dL (0.2 mg/dL) Urine Leukocyte Esterase Trace (NEG) Urine RBC 20-40 /HPF (0-2) Urine WBC Occ /HPF (0-4) Urine Squamous Epithelial Cells Occ /LPF Urine Bacteria 0 /HPF (0-FEW) Urine Mucus Slight /LPF Allergies: Coded Allergies: I S O L A T I O N *CONTACT* (Verified Allergy, Unknown, 10/06/20) Hx MRSA, VRE No Known Allergies (Verified Allergy, Unknown, 10/06/20) Medications: Current Medications Medications (Trade) Dose Ordered Sig/Deangelo Route PRN Reason Start Time Stop Time Status Last Admin Dose Admin Fentanyl Citrate (Fentanyl 2ml Vial) 75 mcg 1X ONCE IVP 10/05/20 19:00 10/05/20 19:01 DC 10/05/20 21:00 Sodium Chloride 1,000 ml @ 1,000 mls/hr 1X ONCE IV 10/05/20 18:30 10/05/20 19:29 DC 10/05/20 21:00 Morphine Sulfate (Morphine Sulfate) 4 mg PRN Q2HR PRN IVP SEVERE PAIN 7-10 10/05/20 21:45 10/06/20 21:44 10/06/20 05:33 Sodium Chloride 1,000 ml @ 125 mls/hr 1X ONCE IV 10/05/20 22:00 10/06/20 05:59 DC 10/06/20 00:27 Piperacillin Sod/ Tazobactam Sod 3.375 gm/Sodium Chloride 50 ml @ 100 mls/hr Q6HRS IV 10/05/20 22:00 10/06/20 05:35 Imaging: Imaging: Echo pending Abd US IMPRESSION: 1. Hepatomegaly and hepatic steatosis. 2. Cholelithiasis. There is superimposed gallbladder distention and gallbladder wall thickening. This may be due to intrinsic liver disease or cholecystitis. Correlate with symptomatology. The common bile duct is well seen. 3. Obscured pancreas due to aforementioned study limitations. LE US IMPRESSION: 1. No Doppler evidence of lower extremity deep venous thrombosis. 2. Left lower extremity soft tissue edema. 3. Left inguinal lymphadenopathy. CXR IMPRESSION: No acute pulmonary finding. PE: GEN: NAD HEENT: Atraumatic, PERRL LUNGS: CTAB HEART: RRR ABD: large, non-tender, quiet BS EXTREMITY: LLE swelling SKIN: dressing left ankle NEURO/PSYCH: A & O 3 A/P: A/P: LLE cellulitis/left inguinal adenopathy, h/o ankle surgery/hardware/infection - ID following Leukocytosis, thrombocytopenia, mild coagulopathy, elevated LFTs (some better), elevated CRP Hepatomegaly/hepatic steatosis. Cholelithiasis, superimposed GB distention and wall thickening - CBD not well seen CRC screen - average risk Narcotic dependency, alcohol overuse COVID negative -- Suspect LFTs related to alcohol overuse - however, will check Hepatitis panel for completeness. Follow labs, observe for recurrence of upper abd pain. Would be beneficial to review CT report from [facility] - these records not available to me - will attempt to get or could consider repeating here. Okay w/ GI to advance diet. ANDREE LOPES Oct 06, 2020 09:02
--- NOTE | 2020-10-06 09:35 | PDOC2 ---
[facility] [employer] [facility] 10/06/20 0935: CONSULT Date of Consult Date of Consult DATE: 10/06/20 TIME: 09:25 Reason for Consult Reason for Consult: cholecystitis Referring Physician Referring Physician: ER Identification/Chief Complaint Chief Complaint leg swelling Source Source: Chart review, Patient History of Present Illness Reason for Visit: Reports RUQ pain with radiation to his back for 2-3 weeks. Associated nausea. Those symptoms have improved some. He was seen in ER and told needed to FU for surgery soon. Return to ER if worsened His main complaint currently is left lower leg swelling, inability to apply pressure to foot. HX of ankle fx with repair/hardware, then infection requiring hardware removal in Jan 2020-this was done at . He does report heavy alcohol intake, last on , in process of quitting --2 1/2 pints average in 2 days Past Medical History Cardiovascular: HTN Pulmonary: Asthma Past Surgical History Past Surgical History: Other (ankle) Social History No ALCOHOL: heavy Drugs: None Lives: with Family Current Problem List Problem List Problems Medical Problems: (1) Cholecystitis Status: Acute (2) Elevated liver enzymes Status: Acute (3) Hyperbilirubinemia Status: Acute (4) Hyponatremia Status: Acute (5) Inguinal lymphadenopathy Status: Acute (6) Jaundice Status: Acute Current Medications Current Medications Current Medications Fentanyl Citrate (Fentanyl 2ml Vial) 75 mcg 1X ONCE IVP Last administered on 10/05/20at 21:00; Start 10/05/20 at 19:00; Stop 10/05/20 at 19:01; Status DC Sodium Chloride 1,000 ml @ 1,000 mls/hr 1X ONCE IV Last administered on 10/05/20at 21:00; Start 10/05/20 at 18:30; Stop 10/05/20 at 19:29; Status DC Ondansetron HCl (Zofran) 4 mg PRN Q8HRS PRN IVP NAUSEA/VOMITING 1ST CHOICE; Start 10/05/20 at 21:45; Stop 10/06/20 at 06:49; Status DC Morphine Sulfate (Morphine Sulfate) 4 mg PRN Q2HR PRN IVP SEVERE PAIN 7-10 Last administered on 10/06/20at 05:33; Start 10/05/20 at 21:45; Stop 10/06/20 at 21:44 Piperacillin Sod/ Tazobactam Sod (Zosyn Per Pharmacy) 1 each PRN DAILY PRN MC SEE COMMENTS; Start 10/05/20 at 21:45 Sodium Chloride 1,000 ml @ 125 mls/hr 1X ONCE IV Last administered on 10/06/20at 00:27; Start 10/05/20 at 22:00; Stop 10/06/20 at 05:59; Status DC Piperacillin Sod/ Tazobactam Sod 3.375 gm/Sodium Chloride 50 ml @ 100 mls/hr Q6HRS IV Last administered on 10/06/20at 05:35; Start 10/05/20 at 22:00 Ondansetron HCl (Zofran) 4 mg PRN Q6HRS PRN IVP NAUSEA/VOMITING 1ST CHOICE; Start 10/06/20 at 06:45 Al Hydroxide/Mg Hydroxide (Mylanta Plus Xs) 30 ml PRN Q3HRS PRN PO HEARTBURN / GAS; Start 10/06/20 at 06:45 Calcium Carbonate/ Glycine (Tums) 500 mg PRN Q3HRS PRN PO UPSET STOMACH; Start 10/06/20 at 06:45 Zolpidem Tartrate (Ambien) 5 mg PRN QHS PRN PO INSOMNIA, MAY REPEAT IN 1HR; Start 10/06/20 at 06:45 Acetaminophen (Tylenol) 650 mg PRN Q6HRS PRN PO Headaches, Temp > 101.5F; Start 10/06/20 at 06:45 Ibuprofen (Motrin) 400 mg PRN Q6HRS PRN PO MILD PAIN 1-3; Start 10/06/20 at 06:45 Magnesium Hydroxide (Milk Of Magnesia) 2,400 mg PRN Q12HR PRN PO CONSTIPATION; Start 10/06/20 at 06:45 Heparin Sodium (Porcine) (Heparin Sodium) 5,000 unit Q8HRS SQ ; Start 10/06/20 at 07:00 Non-Formulary Medication (Buprenorphine Hcl ) 8 mg DAILY SL ; Start 10/06/20 at 09:00; Status UNV Perflutren Protein Type A Microsphe (Optison) 0.66 mg 1X ONCE IV ; Start 10/06/20 at 08:45; Stop 10/06/20 at 08:46; Status DC Perflutren Protein Type A Microsphe (Optison) 0.66 mg STK-MED ONCE IV ; Start 10/06/20 at 08:43; Stop 10/06/20 at 08:43; Status DC Active Scripts Active Reported Buprenorphine Hcl 8 Mg Tab.subl 8 Mg SL DAILY 30 Days Allergies Allergies: Coded Allergies: I S O L A T I O N *CONTACT* (Verified Allergy, Unknown, 10/06/20) Hx MRSA, VRE No Known Allergies (Verified Allergy, Unknown, 10/06/20) ROS General: YES: Fatigue; No: Chills PSYCHOLOGICAL ROS: No: Anxiety, Depression Eyes: No Blurry vision, No Double vision HEENT: No: Heacaches, Sore Throat Hematological and Lymphatic: No: Bleeding Problems, Blood Clots Respiratory: No: Cough, Shortness of breath Cardiovascular: No Chest Pain, No Palpitations Gastrointestinal: Yes Other (see hpi) Genitourinary: No Dysuria, No Retention Musculoskeletal: Yes Joint Pain, Yes Muscle Pain, Yes Muscular Weakness Neurological: Yes Impaired Coord/balance; No Numbness/Tingling Skin: Yes Rash Physical Exam General: Alert, Oriented X3, Cooperative HEENT: Atraumatic, PERRLA Lungs: Clear to auscultation, Normal air movement Heart: Regular rate, Normal S1, Normal S2 Abdomen: Soft, No tenderness Extremities: Other (swelling to LLE and rash) Neuro: Normal speech, Sensation intact Psych/Mental Status: Mental status NL, Mood NL Vitals VITALS Vital Signs Date Time Temp Pulse Resp B/P (MAP) Pulse Ox O2 Delivery O2 Flow Rate FiO2 10/06/20 06:03 96 Room Air 10/06/20 03:00 98.7 89 18 133/78 (96) 98.7 Labs Labs Laboratory Tests Test 10/05/20 20:45 10/06/20 03:20 10/06/20 05:25 White Blood Count 14.0 x10^3/uL (4.0-11.0) 13.9 x10^3/uL (4.0-11.0) Red Blood Count 4.43 x10^6/uL (4.30-5.70) 3.95 x10^6/uL (4.30-5.70) Hemoglobin 14.7 g/dL (13.0-17.5) 13.3 g/dL (13.0-17.5) Hematocrit 42.6 % (39.0-53.0) 38.3 % (39.0-53.0) Mean Corpuscular Volume 96 fL (79-100) 97 fL (79-100) Mean Corpuscular Hemoglobin 33 pg (25-35) 34 pg (25-35) Mean Corpuscular Hemoglobin Concent 34 g/dL (31-37) 35 g/dL (31-37) Red Cell Distribution Width 15.1 % (11.5-14.5) 15.0 % (11.5-14.5) Platelet Count 119 x10^3/uL (140-400) 113 x10^3/uL (140-400) Neutrophils (%) (Auto) 75 % (31-73) 68 % (31-73) Lymphocytes (%) (Auto) 13 % (24-48) 17 % (24-48) Monocytes (%) (Auto) 12 % (0-9) 14 % (0-9) Eosinophils (%) (Auto) 0 % (0-3) 0 % (0-3) Basophils (%) (Auto) 1 % (0-3) 0 % (0-3) Neutrophils # (Auto) 10.5 x10^3/uL (1.8-7.7) 9.4 x10^3/uL (1.8-7.7) Lymphocytes # (Auto) 1.7 x10^3/uL (1.0-4.8) 2.4 x10^3/uL (1.0-4.8) Monocytes # (Auto) 1.7 x10^3/uL (0.0-1.1) 2.0 x10^3/uL (0.0-1.1) Eosinophils # (Auto) 0.0 x10^3/uL (0.0-0.7) 0.0 x10^3/uL (0.0-0.7) Basophils # (Auto) 0.1 x10^3/uL (0.0-0.2) 0.1 x10^3/uL (0.0-0.2) Sodium Level 132 mmol/L (136-145) 134 mmol/L (136-145) Potassium Level 3.8 mmol/L (3.5-5.1) 3.6 mmol/L (3.5-5.1) Chloride Level 97 mmol/L (98-107) 101 mmol/L (98-107) Carbon Dioxide Level 29 mmol/L (21-32) 26 mmol/L (21-32) Anion Gap 6 (6-14) 7 (6-14) Blood Urea Nitrogen 14 mg/dL (8-26) 14 mg/dL (8-26) Creatinine 0.9 mg/dL (0.7-1.3) 0.8 mg/dL (0.7-1.3) Estimated GFR (Cockcroft-Gault) 116.2 133.1 BUN/Creatinine Ratio 16 (6-20) 18 (6-20) Glucose Level 114 mg/dL (70-99) 106 mg/dL (70-99) Calcium Level 9.1 mg/dL (8.5-10.1) 8.6 mg/dL (8.5-10.1) Total Bilirubin 5.0 mg/dL (0.2-1.0) 4.8 mg/dL (0.2-1.0) Direct Bilirubin 3.8 mg/dL (0.0-0.2) Aspartate Amino Transf (AST/SGOT) 119 U/L (15-37) 92 U/L (15-37) Alanine Aminotransferase (ALT/SGPT) 64 U/L (16-63) 49 U/L (16-63) Alkaline Phosphatase 133 U/L (46-116) 113 U/L (46-116) C-Reactive Protein, Quantitative 207.2 mg/L (0-3.3) Total Protein 8.0 g/dL (6.4-8.2) 7.2 g/dL (6.4-8.2) Albumin 3.4 g/dL (3.4-5.0) 2.8 g/dL (3.4-5.0) Albumin/Globulin Ratio 0.7 (1.0-1.7) 0.6 (1.0-1.7) Lipase 89 U/L (73-393) Ethyl Alcohol Level < 10 mg/dL (0-10) Segmented Neutrophils % 69 % (35-66) Lymphocytes % 20 % (24-48) Monocytes % 11 % (0-10) Platelet Estimate Decreased (ADEQUATE) Large Platelets Occ Prothrombin Time 16.1 SEC (11.7-14.0) Prothromb Time International Ratio 1.3 (0.8-1.1) Urine Collection Type Unknown Urine Color Johanny Urine Clarity Clear Urine pH 6.0 (<5.0-8.0) Urine Specific Center 1.025 (1.000-1.030) Urine Protein Negative mg/dL (NEG-TRACE) Urine Glucose (UA) Negative mg/dL (NEG) Urine Ketones (Stick) Trace mg/dL (NEG) Urine Blood Large (NEG) Urine Nitrite Negative (NEG) Urine Bilirubin Moderate (NEG) Urine Urobilinogen Dipstick 4.0 mg/dL (0.2 mg/dL) Urine Leukocyte Esterase Trace (NEG) Urine RBC 20-40 /HPF (0-2) Urine WBC Occ /HPF (0-4) Urine Squamous Epithelial Cells Occ /LPF Urine Bacteria 0 /HPF (0-FEW) Urine Mucus Slight /LPF Laboratory Tests Test 10/05/20 20:45 10/06/20 03:20 10/06/20 05:25 White Blood Count 14.0 x10^3/uL (4.0-11.0) 13.9 x10^3/uL (4.0-11.0) Red Blood Count 4.43 x10^6/uL (4.30-5.70) 3.95 x10^6/uL (4.30-5.70) Hemoglobin 14.7 g/dL (13.0-17.5) 13.3 g/dL (13.0-17.5) Hematocrit 42.6 % (39.0-53.0) 38.3 % (39.0-53.0) Mean Corpuscular Volume 96 fL (79-100) 97 fL (79-100) Mean Corpuscular Hemoglobin 33 pg (25-35) 34 pg (25-35) Mean Corpuscular Hemoglobin Concent 34 g/dL (31-37) 35 g/dL (31-37) Red Cell Distribution Width 15.1 % (11.5-14.5) 15.0 % (11.5-14.5) Platelet Count 119 x10^3/uL (140-400) 113 x10^3/uL (140-400) Neutrophils (%) (Auto) 75 % (31-73) 68 % (31-73) Lymphocytes (%) (Auto) 13 % (24-48) 17 % (24-48) Monocytes (%) (Auto) 12 % (0-9) 14 % (0-9) Eosinophils (%) (Auto) 0 % (0-3) 0 % (0-3) Basophils (%) (Auto) 1 % (0-3) 0 % (0-3) Neutrophils # (Auto) 10.5 x10^3/uL (1.8-7.7) 9.4 x10^3/uL (1.8-7.7) Lymphocytes # (Auto) 1.7 x10^3/uL (1.0-4.8) 2.4 x10^3/uL (1.0-4.8) Monocytes # (Auto) 1.7 x10^3/uL (0.0-1.1) 2.0 x10^3/uL (0.0-1.1) Eosinophils # (Auto) 0.0 x10^3/uL (0.0-0.7) 0.0 x10^3/uL (0.0-0.7) Basophils # (Auto) 0.1 x10^3/uL (0.0-0.2) 0.1 x10^3/uL (0.0-0.2) Sodium Level 132 mmol/L (136-145) 134 mmol/L (136-145) Potassium Level 3.8 mmol/L (3.5-5.1) 3.6 mmol/L (3.5-5.1) Chloride Level 97 mmol/L (98-107) 101 mmol/L (98-107) Carbon Dioxide Level 29 mmol/L (21-32) 26 mmol/L (21-32) Anion Gap 6 (6-14) 7 (6-14) Blood Urea Nitrogen 14 mg/dL (8-26) 14 mg/dL (8-26) Creatinine 0.9 mg/dL (0.7-1.3) 0.8 mg/dL (0.7-1.3) Estimated GFR (Cockcroft-Gault) 116.2 133.1 BUN/Creatinine Ratio 16 (6-20) 18 (6-20) Glucose Level 114 mg/dL (70-99) 106 mg/dL (70-99) Calcium Level 9.1 mg/dL (8.5-10.1) 8.6 mg/dL (8.5-10.1) Total Bilirubin 5.0 mg/dL (0.2-1.0) 4.8 mg/dL (0.2-1.0) Direct Bilirubin 3.8 mg/dL (0.0-0.2) Aspartate Amino Transf (AST/SGOT) 119 U/L (15-37) 92 U/L (15-37) Alanine Aminotransferase (ALT/SGPT) 64 U/L (16-63) 49 U/L (16-63) Alkaline Phosphatase 133 U/L (46-116) 113 U/L (46-116) C-Reactive Protein, Quantitative 207.2 mg/L (0-3.3) Total Protein 8.0 g/dL (6.4-8.2) 7.2 g/dL (6.4-8.2) Albumin 3.4 g/dL (3.4-5.0) 2.8 g/dL (3.4-5.0) Albumin/Globulin Ratio 0.7 (1.0-1.7) 0.6 (1.0-1.7) Lipase 89 U/L (73-393) Ethyl Alcohol Level < 10 mg/dL (0-10) Segmented Neutrophils % 69 % (35-66) Lymphocytes % 20 % (24-48) Monocytes % 11 % (0-10) Platelet Estimate Decreased (ADEQUATE) Large Platelets Occ Prothrombin Time 16.1 SEC (11.7-14.0) Prothromb Time International Ratio 1.3 (0.8-1.1) Urine Collection Type Unknown Urine Color Johanny Urine Clarity Clear Urine pH 6.0 (<5.0-8.0) Urine Specific Center 1.025 (1.000-1.030) Urine Protein Negative mg/dL (NEG-TRACE) Urine Glucose (UA) Negative mg/dL (NEG) Urine Ketones (Stick) Trace mg/dL (NEG) Urine Blood Large (NEG) Urine Nitrite Negative (NEG) Urine Bilirubin Moderate (NEG) Urine Urobilinogen Dipstick 4.0 mg/dL (0.2 mg/dL) Urine Leukocyte Esterase Trace (NEG) Urine RBC 20-40 /HPF (0-2) Urine WBC Occ /HPF (0-4) Urine Squamous Epithelial Cells Occ /LPF Urine Bacteria 0 /HPF (0-FEW) Urine Mucus Slight /LPF Assessment/Plan Assessment/Plan LLE cellulitis--ID following, lymphadenitis abdominal pain, ? cholecystitis, gallstone present however ? underlying liver disease with alcohol hx --plts low, LFTS abnormal GI consult very poor surgical candidate and would recommend alcohol cessation GIGI GIFFORD MD 10/06/20 1148: CONSULT Assessment/Plan Assessment/Plan Agree with above; given liver disease and ETOH use, abnormal LFTs, would not recommend surgery. [facility] [employer] [facility] Oct 06, 2020 09:35 GIGI GIFFORD MD Oct 06, 2020 11:48
--- NOTE | 2020-10-06 10:18 | NUR ---
SW following. Discussed with RN, pt from home, room air, NPO. Gi, ID and Surgery following. PAT consulted for ETOH. SW will continue to follow.
[2020-10-06] MEDS: HEPARIN for SUB-Q USE 5,000 UNIT/ML VIAL. SQ SCH ×3 (10:44→22:58)
[2020-10-06 11:00] VITALS: BP 145/94
[2020-10-06] MEDS: cefTRIAXone IV Push 2 GM VIAL. IVP SCH (12:45)
--- NOTE | 2020-10-06 13:13 | CONS ---
DATE OF CONSULTATION: 10/06/2020 REFERRING PHYSICIAN: Dr. Vega. REASON FOR CONSULTATION: Leg cellulitis and alcoholic liver disease. HISTORY OF PRESENT ILLNESS: This is a 35-year-old -[place] gentleman with a history of alcoholic liver disease, who does have alcohol problem, came in with 2 days of fever, chills, left leg pain, redness, unable to walk. The patient has had abdominal pain, which has improved. The patient had testing done, which showed gallstones, though also has a bilirubin up to 5. We do not have any prior lab work to know what his baseline is. The patient denies any nausea, vomiting, diarrhea. Denies any chest pain, shortness of breath, abdominal pain, urinary symptoms or bowel symptoms right now. PAST MEDICAL HISTORY: Positive for alcoholism. He has had left leg trauma with hardware in place, status post infection and later on hardware removal done in the past. He also has a substance abuse history. SOCIAL HISTORY: Negative for smoking. Does drink a lot, significant alcohol use, no drug use. ALLERGIES: No known drug allergies. CURRENT MEDICATIONS: Reviewed. The patient is on Zosyn. REVIEW OF SYSTEMS: As in HPI. All other systems reviewed are negative. PHYSICAL EXAMINATION: GENERAL: Alert and oriented gentleman, not in distress. VITAL SIGNS: T-max is 99.2, pulse 89, respirations 18, blood pressure 133/78. HEENT: Both pupils are round and reacting. No conjunctival lesion, no lesion in the mouth. NECK: Supple, no JVP, no lymphadenopathy. LUNGS: Clear. HEART: S1, S2 regular. ABDOMEN: Soft, nontender, no organomegaly, no tenderness, rebound or guarding. EXTREMITIES: Right lower extremity is normal. Left lower extremity is swollen. There is redness all the way up into the thigh and there is tender lymphadenopathy in the left groin. There is some maceration between the toes. There is no open wound or drainage. NEUROLOGIC: The patient is alert, awake and appropriate. No focal neurologic deficit. LABORATORY DATA: White count is 13.9, platelets are 113,000. BUN and creatinine is normal. His total bilirubin is 4.8. AST, ALT is 92 and 49, which has improved from the admission. ETOH level yesterday was less than 10. Ultrasound of the abdomen is showing hepatomegaly with hepatic steatosis, cholelithiasis. Lower extremity ultrasound was negative for DVT. The chest x-ray is unremarkable. IMPRESSION: 1. Fever and chills. 2. Leukocytosis. Both are secondary to left lower extremity cellulitis. 3. Left lower extremity cellulitis on top of chronic edema from prior trauma. 4. Tinea infection between the toes. 5. Alcoholic liver disease. 6. Asymptomatic cholelithiasis. RECOMMENDATIONS: We will scale down Zosyn to Rocephin. The patient needs antifungal, but with his liver the way it is, do not want to use systemic antifungal. We should use nystatin cream at the feet twice a day. Supportive care, leg elevation and will continue to follow ____. Thank you very much, Dr. Vega, for giving me opportunity to participate in this patient's care. MIGUEL ANGEL/DISHA/JELANI DR: MIGUEL ANGEL/jerry TID: [id number]
[2020-10-06] MEDS: NYSTATIN 100,000 UNIT/GM TOPICAL CREAM 15GM TUBE. TP SCH ×2 (15:03→20:41)
[2020-10-06 15:30] VITALS: BP 148/88
--- NOTE | 2020-10-06 15:39 | RAD ---
EXAM: Left foot and ankle CT without contrast. HISTORY: Cellulitis. Concern for abscess. TECHNIQUE: Computed tomographic images of the left foot and ankle and distal hinson were obtained witho ut contrast. *One or more of the following individualized dose reduction techniques were utilized for this examina tion: 1. Automated exposure control. 2. Adjustment of the mA and/or kV according to patient size. 3. Use of iterative reconstruction technique. COMPARISON: None. FINDINGS: Evaluation for abscesses is limited due to the absence of contrast. There is extensive soft tissue edema with associated reticulation of the subcutis fat and thickening of the skin. There is a superimposed loculated fluid collection measuring approximately 4.0 cm in maximum thickness along th e posterior aspect of the distal tibia and fibular metaphyses. There is linear extension of this flui d extending to the distal calf, measuring approximately 10.0 cm in maximum length. There is a tiny ro und metallic foreign body along the collection at the level of the distal calf. No soft tissue gas is seen. There is a tibiotalar joint effusion. There are several tiny bone fragments or dense foreign b odies along the anterior and lateral aspects of the distal fibular metadiaphysis. There is a track ma rk within the distal fibular metaphysis as well as within the distal tibial metaphysis due to prior i nstrumentation. There is tibiotalar joint space narrowing with degenerative subchondral sclerosis and subchondral cyst formation. There are tiny chronic appearing nonunited avulsion fracture fragments a long the inferior medial malleolus. There is suspected bone demineralization. There is no convincing CT evidence of osteomyelitis. There is a tiny plantar spur. There is enthesopathy at the Achilles ten don insertion. IMPRESSION: 1. Limited evaluation due to the absence of intravenous contrast. There is a complex fluid collection within the soft tissues along the posterior lateral ankle at the level of the distal tibia and fibul ar metaphyses which extends cephalad into the distal calf soft tissues measuring 4.0 cm in maximum th ickness and 10.0 cm in maximum length. The degree of surrounding cellulitis favors that the fluid col lection represents an abscess rather than postoperative seroma. 2. Tibiotalar joint effusion. 3. Findings consistent with distal tibia and fibular instrumentation removal. 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 4. Tiny chronic appearing nonunited avulsion fracture fragments along the inferior medial malleolus. Electronically signed by: Stacey Warren MD (10/06/2020 3:37 PM) [id number]
[2020-10-06 19:30] VITALS: BP 131/87
[2020-10-06] MEDS: IBUPROFEN 400 MG TABLET. PO PRN (20:35)
[2020-10-06] MEDS: ZOLPIDEM 5 MG TABLET. PO PRN (22:53)
[2020-10-06 23:56] VITALS: BP 122/83
[2020-10-07 03:00] VITALS: BP 116/65
--- NOTE | 2020-10-07 03:20 | EKG ---
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
[2020-10-07] MEDS: HEPARIN for SUB-Q USE 5,000 UNIT/ML VIAL. SQ SCH ×3 (05:21→22:15)
[2020-10-07 07:00] VITALS: BP 114/78
[2020-10-07 07:48] LABS: HEMATOCRIT 38.7 % (39.0-53.0); HEMOGLOBIN 13.2 g/dL (13.0-17.5); RED BLOOD COUNT 4.01 x10^6/uL (4.30-5.70); WHITE BLOOD COUNT 11.2 x10^3/uL (4.0-11.0)
--- NOTE | 2020-10-07 07:52 | PDOC ---
Infectious Disease Note Subjective Subjective Patient is feeling okay continues to still have leg pain. ROS ROS No nausea vomiting diarrhea chest pain shortness of breath Vital Sign Vital Signs Vital Signs Date Time Temp Pulse Resp B/P (MAP) Pulse Ox O2 Delivery O2 Flow Rate FiO2 10/07/20 03:00 99.1 83 20 116/65 (82) 98 Room Air 99.1 Physical Exam PHYSICAL EXAM GENERAL: Alert and oriented gentleman, not in distress. VITAL SIGNS: Stable HEENT: Both pupils are round and reacting. No conjunctival lesion, no lesion in the mouth. NECK: Supple, no JVP, no lymphadenopathy. LUNGS: Clear. HEART: S1, S2 regular. ABDOMEN: Soft, nontender, no organomegaly, no tenderness, rebound or guarding. EXTREMITIES: Right lower extremity is normal. Left lower extremity is swollen. There is redness all the way up into the thigh and there is tender lymphadenopathy in the left groin. There is some maceration between the toes. There is no open wound or drainage. NEUROLOGIC: The patient is alert, awake and appropriate. No focal neurologic deficit. Labs Lab Laboratory Tests Test 10/06/20 10:20 Hepatitis A IgM Antibody Nonreactive (Nonreactive) Hepatitis B Surface Antigen Nonreactive (Nonreactive) Hepatitis B Core IgM Antibody Nonreactive (Nonreactive) Hepatitis C IgG Antibody Nonreactive (Nonreactive) Micro Microbiology 10/05/20 Blood Culture - Preliminary, Resulted NO GROWTH AFTER 1 DAY Objective Assessment IMPRESSION: 1. Fever and chills. 2. Leukocytosis. Both are secondary to left lower extremity cellulitis. 3. Left lower extremity cellulitis on top of chronic edema from prior trauma. 4. Tinea infection between the toes. 5. Alcoholic liver disease. 6. Asymptomatic cholelithiasis. Plan Plan of Care Continue antibiotics. Continue leg elevation. ALEJANDRO SHIPMAN MD Oct 07, 2020 07:52
[2020-10-07 08:18] LABS: ALBUMIN 2.5 g/dL (3.4-5.0); DIRECT BILIRUBIN 3.6 mg/dL (0.0-0.2); TOTAL BILIRUBIN 4.5 mg/dL (0.2-1.0); TOTAL PROTEIN 6.9 g/dL (6.4-8.2)
--- NOTE | 2020-10-07 08:30 | PDOC ---
[employer] PROGRESS NOTE Date of Service DOS: DATE: 10/07/20 TIME: 08:24 Chief Complaint Chief Complaint Acute cholecystitis Left lower extremity cellulitis Left inguinal lymphadenopathy Narcotic dependence Alcohol abuse Morbid obesity Severe malnutrition Plan: Continue treatment with IV Rocephin, per ID Consultation placed to general surgery, GI, and ID Left inguinal lymphadenopathy seen on ultrasound likely reactive due to inf ectious process; recommend follow-up to ensure resolution. No evidence of DVT seen on ultrasound left lower extremity; will obtain echocardiogram. Resume home medications FEN - NPO PPX - Heparin FULL CODE Dispo - inpatient for above Patient names his (Ni Lee) as surrogate decision-maker History of Present Illness History of Present Illness Patient is a 35-year-old male with past medical history alcohol abuse, narcotic dependence, morbid obesity, who presents to the ED with complaints of left upper quadrant abdominal pain for the past week. He reports abdominal pain 7/10, with associated intermittent nausea and vomiting. Also notes left lower extremity swelling and pain for the past 2 days. He notes associated drainage from his left ankle, but is unsure if this is been purulent drainage. He does have a history of left lower extremity surgery requiring surgical fixation; states that this was complicated by MRSA infected hardware, which was subsequently removed. He reports regular heavy alcohol intake and takes daily Suboxone for history of narcotic dependence. Labs on admission showed WBC 14, platelets 119, sodium 132, CBG 114, AST 119, ALT 64, CRP 207.2, albumin 2.8, PT 16.1, INR 1.3. Abdominal ultrasound showed cholelithiasis, superimposed gallbladder distention and gallbladder wall thickening, suggestive of cholecystitis. He received broad-spectrum antibiotics and IV fluids. Will admit for further medical management. 10/07/2020: Patient seen and evaluated. He was febrile overnight, T-max 100.6 F. Leukocytosis improving 11. today. Per general surgery, he is a poor surgical candidate and not recommending any surgical interventions at this time. CT left lower extremity yesterday showed fluid collection favoring an abscess; appreciate general surgery input in regards to possible left ankle abscess. Per GI, elevated LFTs likely secondary to history of alcohol abuse, but hepatitis panel pending for thoroughness. Antibiotics have been changed to Rocephin with topical nystatin cream twice daily, per ID. Patient with complaints of uncontrolled pain that he agrees is due to his history of narcotic abuse. Will increase PO pain medications. Vitals/I&O Vitals/I&O: Vital Signs Date Time Temp Pulse Resp B/P (MAP) Pulse Ox O2 Delivery O2 Flow Rate FiO2 10/07/20 03:00 99.1 83 20 116/65 (82) 98 Room Air 99.1 I & O 10/06/20 10/06/20 10/07/20 15:00 23:00 07:00 Intake Total 300 ml Output Total 300 ml 750 ml Balance 0 ml -750 ml Physical Exam Physical Exam: GENERAL: Alert and oriented gentleman, not in distress. VITAL SIGNS: T-max is 99.2, pulse 89, respirations 18, blood pressure 133/78. HEENT: Both pupils are round and reacting. No conjunctival lesion, no lesion in the mouth. NECK: Supple, no JVP, no lymphadenopathy. LUNGS: Clear. HEART: S1, S2 regular. ABDOMEN: Soft, nontender, no organomegaly, no tenderness, rebound or guarding. EXTREMITIES: Right lower extremity is normal. Left lower extremity is swollen. There is redness all the way up into the thigh and there is tender lymphadenopathy in the left groin. There is some maceration between the toes. There is no open wound or drainage. NEUROLOGIC: The patient is alert, awake and appropriate. No focal neurologic deficit. General: Alert, Oriented X3, Cooperative Heart: Regular rate, Normal S1, Normal S2 Lungs: Clear Abdomen: Soft, No tenderness Extremities: Other (3+ edema left lower extremity) Skin: No significant lesion, Other (Patchy areas of erythema extending from left ankle to proximal left thigh) Labs Labs: Laboratory Tests Test 10/06/20 10:20 10/07/20 06:45 Hepatitis A IgM Antibody Nonreactive (Nonreactive) Hepatitis B Surface Antigen Nonreactive (Nonreactive) Hepatitis B Core IgM Antibody Nonreactive (Nonreactive) Hepatitis C IgG Antibody Nonreactive (Nonreactive) White Blood Count 11.2 x10^3/uL (4.0-11.0) Red Blood Count 4.01 x10^6/uL (4.30-5.70) Hemoglobin 13.2 g/dL (13.0-17.5) Hematocrit 38.7 % (39.0-53.0) Mean Corpuscular Volume 97 fL (79-100) Mean Corpuscular Hemoglobin 33 pg (25-35) Mean Corpuscular Hemoglobin Concent 34 g/dL (31-37) Red Cell Distribution Width 15.0 % (11.5-14.5) Platelet Count 115 x10^3/uL (140-400) Total Bilirubin 4.5 mg/dL (0.2-1.0) Direct Bilirubin 3.6 mg/dL (0.0-0.2) Aspartate Amino Transf (AST/SGOT) 74 U/L (15-37) Alanine Aminotransferase (ALT/SGPT) 41 U/L (16-63) Alkaline Phosphatase 119 U/L (46-116) Total Protein 6.9 g/dL (6.4-8.2) Albumin 2.5 g/dL (3.4-5.0) Assessment and Plan Assessmemt and Plan Problems Medical Problems: (1) Cholecystitis Status: Acute (2) Elevated liver enzymes Status: Acute (3) Hyperbilirubinemia Status: Acute (4) Hyponatremia Status: Acute (5) Inguinal lymphadenopathy Status: Acute (6) Jaundice Status: Acute Comment Review of Relevant I have reviewed the following items chevy (where applicable) has been applied. Medications: Current Medications Medications (Trade) Dose Ordered Sig/Deangelo Route PRN Reason Start Time Stop Time Status Last Admin Dose Admin Ceftriaxone Sodium (Rocephin) 2 gm Q24H IVP 10/06/20 12:00 10/06/20 12:45 Nystatin (Mycostatin) 1 erika BID TP 10/06/20 12:00 10/06/20 20:41 Justifications for Admission Other Justification ROSIE TODD MD Oct 07, 2020 08:30
[2020-10-07] MEDS: NON FORMULARY ITEM (Buprenorphine Hcl 8 MG) SL SCH (09:00)
[2020-10-07] MEDS ORDERED: HYDROcodone/APAP 7.5/325MG 1 TAB TABLET PO PRN (09:00)
[2020-10-07] MEDS ORDERED: HYDROcodone/APAP 5/325MG 1 TAB TABLET PO PRN (09:00)
[2020-10-07] MEDS: NYSTATIN 100,000 UNIT/GM TOPICAL CREAM 15GM TUBE. TP SCH ×2 (09:16→20:14)
[2020-10-07] MEDS: IBUPROFEN 400 MG TABLET. PO PRN ×2 (09:16→20:14)
--- NOTE | 2020-10-07 10:48 | PDOC ---
Date of Service: DATE: 10/07/20 TIME: 10:42 Subjective: Subjective: No GI complaints. Eating breakfast, no abd pain. Leg about the same. Objective: Objective: D/w ID. Tmax 100.6. Vital Signs: Vital Signs Date Time Temp Pulse Resp B/P (MAP) Pulse Ox O2 Delivery O2 Flow Rate FiO2 10/07/20 07:40 Room Air 10/07/20 07:00 98.6 89 18 114/78 (90) 95 98.6 Labs: Laboratory Tests Test 10/07/20 06:45 White Blood Count 11.2 x10^3/uL Red Blood Count 4.01 x10^6/uL Hemoglobin 13.2 g/dL Hematocrit 38.7 % Mean Corpuscular Volume 97 fL Mean Corpuscular Hemoglobin 33 pg Mean Corpuscular Hemoglobin Concent 34 g/dL Red Cell Distribution Width 15.0 % Platelet Count 115 x10^3/uL Total Bilirubin 4.5 mg/dL Direct Bilirubin 3.6 mg/dL Aspartate Amino Transf (AST/SGOT) 74 U/L Alanine Aminotransferase (ALT/SGPT) 41 U/L Alkaline Phosphatase 119 U/L Total Protein 6.9 g/dL Albumin 2.5 g/dL BLOOD CULTURE Preliminary NO GROWTH AFTER 1 DAY PE: GEN: NAD - eating eggs and bagels LUNGS: CTAB HEART: RRR ABD: large, soft, non-tender EXTREMITY: LLE edema NEURO/PSYCH: A & O 3 A/P: LLE cellulitis/left inguinal adenopathy Thrombocytopenia (stable), elevated LFTs (bit better) Hepatomegaly/hepatic steatosis, alcohol overuse Cholelithiasis -- Viral Hep panel negative. Currently w/o GI complaints. Suspect elevated LFTs multi-factorial/related to alcohol. Unable to review recent CT from [facility], report requested/not received. Continue atbx per ID, follow labs and observe from GI standpoint. Stop drinking. Justicifation of Admission Dx: Justifications for Admission: Justification of Admission Dx: Yes ANDREE LOPES Oct 07, 2020 10:48
--- NOTE | 2020-10-07 10:56 | NUR ---
SW following. Discussed with RNWayne (GLADYS) met with pt, pt sees a psychiatrist, is on Subutex for opiate addiction. Pt reports drinking a pint to a pint and half of whiskey a day - does not think it is a problem and can stop. Pt provided with resources for the guidance center, and [facility]. Pt cleared by GLADYS. SW will continue to follow.
[2020-10-07 11:00] VITALS: BP 141/84
--- NOTE | 2020-10-07 11:09 | PDOC ---
SURGICAL PROGRESS NOTE DATE: 10/07/20 TIME: 11:06 Subjective resting leg elevated d/w nursing, IPC requesting gen surg opinion on ankle abscess Vital Signs Vital Signs Date Time Temp Pulse Resp B/P (MAP) Pulse Ox O2 Delivery O2 Flow Rate FiO2 10/07/20 07:40 Room Air 10/07/20 07:00 98.6 89 18 114/78 (90) 95 98.6 I&O Intake and Output 10/07/20 07:00 Intake Total 300 ml Output Total 1050 ml Balance -750 ml Intake Oral 300 ml Output Urine Total 1050 ml General: Alert, Cooperative Skin: Other (left LE swollen) Labs Laboratory Tests Test 10/05/20 20:45 10/05/20 23:27 10/06/20 03:20 10/06/20 05:25 White Blood Count 14.0 x10^3/uL (4.0-11.0) 13.9 x10^3/uL (4.0-11.0) Red Blood Count 4.43 x10^6/uL (4.30-5.70) 3.95 x10^6/uL (4.30-5.70) Hemoglobin 14.7 g/dL (13.0-17.5) 13.3 g/dL (13.0-17.5) Hematocrit 42.6 % (39.0-53.0) 38.3 % (39.0-53.0) Mean Corpuscular Volume 96 fL (79-100) 97 fL (79-100) Mean Corpuscular Hemoglobin 33 pg (25-35) 34 pg (25-35) Mean Corpuscular Hemoglobin Concent 34 g/dL (31-37) 35 g/dL (31-37) Red Cell Distribution Width 15.1 % (11.5-14.5) 15.0 % (11.5-14.5) Platelet Count 119 x10^3/uL (140-400) 113 x10^3/uL (140-400) Neutrophils (%) (Auto) 75 % (31-73) 68 % (31-73) Lymphocytes (%) (Auto) 13 % (24-48) 17 % (24-48) Monocytes (%) (Auto) 12 % (0-9) 14 % (0-9) Eosinophils (%) (Auto) 0 % (0-3) 0 % (0-3) Basophils (%) (Auto) 1 % (0-3) 0 % (0-3) Neutrophils # (Auto) 10.5 x10^3/uL (1.8-7.7) 9.4 x10^3/uL (1.8-7.7) Lymphocytes # (Auto) 1.7 x10^3/uL (1.0-4.8) 2.4 x10^3/uL (1.0-4.8) Monocytes # (Auto) 1.7 x10^3/uL (0.0-1.1) 2.0 x10^3/uL (0.0-1.1) Eosinophils # (Auto) 0.0 x10^3/uL (0.0-0.7) 0.0 x10^3/uL (0.0-0.7) Basophils # (Auto) 0.1 x10^3/uL (0.0-0.2) 0.1 x10^3/uL (0.0-0.2) Sodium Level 132 mmol/L (136-145) 134 mmol/L (136-145) Potassium Level 3.8 mmol/L (3.5-5.1) 3.6 mmol/L (3.5-5.1) Chloride Level 97 mmol/L (98-107) 101 mmol/L (98-107) Carbon Dioxide Level 29 mmol/L (21-32) 26 mmol/L (21-32) Anion Gap 6 (6-14) 7 (6-14) Blood Urea Nitrogen 14 mg/dL (8-26) 14 mg/dL (8-26) Creatinine 0.9 mg/dL (0.7-1.3) 0.8 mg/dL (0.7-1.3) Estimated GFR (Cockcroft-Gault) 116.2 133.1 BUN/Creatinine Ratio 16 (6-20) 18 (6-20) Glucose Level 114 mg/dL (70-99) 106 mg/dL (70-99) Calcium Level 9.1 mg/dL (8.5-10.1) 8.6 mg/dL (8.5-10.1) Total Bilirubin 5.0 mg/dL (0.2-1.0) 4.8 mg/dL (0.2-1.0) Direct Bilirubin 3.8 mg/dL (0.0-0.2) Aspartate Amino Transf (AST/SGOT) 119 U/L (15-37) 92 U/L (15-37) Alanine Aminotransferase (ALT/SGPT) 64 U/L (16-63) 49 U/L (16-63) Alkaline Phosphatase 133 U/L (46-116) 113 U/L (46-116) C-Reactive Protein, Quantitative 207.2 mg/L (0-3.3) Total Protein 8.0 g/dL (6.4-8.2) 7.2 g/dL (6.4-8.2) Albumin 3.4 g/dL (3.4-5.0) 2.8 g/dL (3.4-5.0) Albumin/Globulin Ratio 0.7 (1.0-1.7) 0.6 (1.0-1.7) Lipase 89 U/L (73-393) Ethyl Alcohol Level < 10 mg/dL (0-10) SARS-CoV-2 RNA (AMELIA) Negative (Negative) Segmented Neutrophils % 69 % (35-66) Lymphocytes % 20 % (24-48) Monocytes % 11 % (0-10) Platelet Estimate Decreased (ADEQUATE) Large Platelets Occ Prothrombin Time 16.1 SEC (11.7-14.0) Prothromb Time International Ratio 1.3 (0.8-1.1) Urine Collection Type Unknown Urine Color Johanny Urine Clarity Clear Urine pH 6.0 (<5.0-8.0) Urine Specific Ashby 1.025 (1.000-1.030) Urine Protein Negative mg/dL (NEG-TRACE) Urine Glucose (UA) Negative mg/dL (NEG) Urine Ketones (Stick) Trace mg/dL (NEG) Urine Blood Large (NEG) Urine Nitrite Negative (NEG) Urine Bilirubin Moderate (NEG) Urine Urobilinogen Dipstick 4.0 mg/dL (0.2 mg/dL) Urine Leukocyte Esterase Trace (NEG) Urine RBC 20-40 /HPF (0-2) Urine WBC Occ /HPF (0-4) Urine Squamous Epithelial Cells Occ /LPF Urine Bacteria 0 /HPF (0-FEW) Urine Mucus Slight /LPF Test 10/06/20 10:20 10/07/20 06:45 Hepatitis A IgM Antibody Nonreactive (Nonreactive) Hepatitis B Surface Antigen Nonreactive (Nonreactive) Hepatitis B Core IgM Antibody Nonreactive (Nonreactive) Hepatitis C IgG Antibody Nonreactive (Nonreactive) White Blood Count 11.2 x10^3/uL (4.0-11.0) Red Blood Count 4.01 x10^6/uL (4.30-5.70) Hemoglobin 13.2 g/dL (13.0-17.5) Hematocrit 38.7 % (39.0-53.0) Mean Corpuscular Volume 97 fL (79-100) Mean Corpuscular Hemoglobin 33 pg (25-35) Mean Corpuscular Hemoglobin Concent 34 g/dL (31-37) Red Cell Distribution Width 15.0 % (11.5-14.5) Platelet Count 115 x10^3/uL (140-400) Total Bilirubin 4.5 mg/dL (0.2-1.0) Direct Bilirubin 3.6 mg/dL (0.0-0.2) Aspartate Amino Transf (AST/SGOT) 74 U/L (15-37) Alanine Aminotransferase (ALT/SGPT) 41 U/L (16-63) Alkaline Phosphatase 119 U/L (46-116) Total Protein 6.9 g/dL (6.4-8.2) Albumin 2.5 g/dL (3.4-5.0) Laboratory Tests Test 10/07/20 06:45 White Blood Count 11.2 x10^3/uL (4.0-11.0) Red Blood Count 4.01 x10^6/uL (4.30-5.70) Hemoglobin 13.2 g/dL (13.0-17.5) Hematocrit 38.7 % (39.0-53.0) Mean Corpuscular Volume 97 fL (79-100) Mean Corpuscular Hemoglobin 33 pg (25-35) Mean Corpuscular Hemoglobin Concent 34 g/dL (31-37) Red Cell Distribution Width 15.0 % (11.5-14.5) Platelet Count 115 x10^3/uL (140-400) Total Bilirubin 4.5 mg/dL (0.2-1.0) Direct Bilirubin 3.6 mg/dL (0.0-0.2) Aspartate Amino Transf (AST/SGOT) 74 U/L (15-37) Alanine Aminotransferase (ALT/SGPT) 41 U/L (16-63) Alkaline Phosphatase 119 U/L (46-116) Total Protein 6.9 g/dL (6.4-8.2) Albumin 2.5 g/dL (3.4-5.0) Problem List Problems Medical Problems: (1) Cholecystitis Status: Acute (2) Elevated liver enzymes Status: Acute (3) Hyperbilirubinemia Status: Acute (4) Hyponatremia Status: Acute (5) Inguinal lymphadenopathy Status: Acute (6) Jaundice Status: Acute Assessment/Plan would rec ortho regarding ankle abscess--he has had extensive hx with hardware, infection and removal of hardware no surgical plans for bryant, needs abstinence from alcohol, will sign off please call with questions Justicifation of Admission Dx: Justifications for Admission: Justification of Admission Dx: Yes MONI FLORIAN APRN Oct 07, 2020 11:09
--- NOTE | 2020-10-07 11:14 | NUR ---
Message send to Dr. Vega Re: need for ortho to evaluate LE abcess per KRYSTLE Chapman with general surgery.
[2020-10-07] MEDS: cefTRIAXone IV Push 2 GM VIAL. IVP SCH (12:27)
[2020-10-07] MEDS: HYDROcodone/APAP 10/325 1 TAB TABLET PO PRN (12:29)
--- NOTE | 2020-10-07 12:39 | CARD ---
MR#: [id number] Date of Study: 10/06/2020 Ordering Physician: ROSIE TODD, Referring Physician: ROSIE TODD, Tech: Gina Yo DEMAR APPROVED REPORT EXAM: Two-dimensional and M-mode echocardiogram with Doppler and color Doppler. Other Information Quality : Technically LimitedHR: 83bpm Rhythm : NSRTechnically limited study due to body habitus. INDICATION Hypertension/HCVD Echo Enhancing Agent Indication: Endocardial border delineation Agent/Amount Used: Optison 2mL RISK FACTORS Hypertension Obesity 2D DIMENSIONS RVDd3.0 (2.9-3.5cm)Left Atrium(2D)4.1 (1.6-4.0cm) IVSd1.2 (0.7-1.1cm)Aortic Root(2D)3.8 (2.0-3.7cm) LVDd5.1 (3.9-5.9cm)LVOT Diameter2.5 (1.8-2.4cm) PWd1.2 (0.7-1.1cm)LVDs3.6 (2.5-4.0cm) FS (%) 28.8 %SV68.7 ml LVEF(%)55.0 (>50%) Aortic Valve AoV Peak Ismael.181.3cm/sAoV VTI37.2cm AO Peak GR.13.2mmHgLVOT Peak Ismael.147.9cm/s AO Mean GR.7mmHgAVA (VMAX)4.04cm2 Mitral Valve MV E Vnziloks435.3cm/sMV DECEL [id number] MV A Coblxufi12.2cm/sE/A Ratio1.5 Pulmonary Valve PV Peak Xeepmcqf825.2cm/s LEFT VENTRICLE The left ventricle is normal size. There is mild concentric left ventricular hypertrophy. The left ve ntricular systolic function is normal and the ejection fraction is within normal range. Estimated eje ction fraction 65%. There is normal LV segmental wall motion. The left ventricular diastolic function and filling is normal for age. RIGHT VENTRICLE The right ventricle is normal size. There is normal right ventricular wall thickness. The right ventr icular systolic function is normal. ATRIA The left atrium size is normal. The right atrium size is normal. The interatrial septum is intact wit h no evidence for an atrial septal defect or patent foramen ovale as noted on 2-D or Doppler imaging. AORTIC VALVE The aortic valve is normal in structure and function. Doppler and Color Flow revealed no significant aortic regurgitation. There is no significant aortic valvular stenosis. MITRAL VALVE The mitral valve is normal in structure and function. There is no evidence of mitral valve prolapse. There is no mitral valve stenosis. Doppler and Color Flow revealed no mitral valve regurgitation note d. TRICUSPID VALVE The tricuspid valve is normal in structure and function. Doppler and Color Flow revealed no tricuspid valve regurgitation noted. There is no tricuspid valve stenosis. PULMONIC VALVE Doppler and Color Flow revealed no pulmonic valvular regurgitation. There is no pulmonic valvular slick nosis. GREAT VESSELS The aortic root is normal in size. The ascending aorta is moderately dilated at 4.5 cm The IVC is nor mal in size and collapses >50% with inspiration. PERICARDIAL EFFUSION There is no evidence of significant pericardial effusion. Critical Notification Critical Value: No <Conclusion> The left ventricular systolic function is normal and the ejection fraction is within normal range. E stimated ejection fraction 65%. There is normal LV segmental wall motion. The ascending aorta is moderately dilated at 4.5 cm Signed by : Gael Alvarado, Electronically Approved : 10/07/2020 12:38:39
--- NOTE | 2020-10-07 14:11 | PDOC2 ---
Consult: Chief complaint Left leg swelling with history of surgery History: Patient seen and evaluated in room 440 at the request of the admitting physician. He had an injury back in September 2019 and underwent fixation of his ankle in October 2019. He had difficulties with wound healing that eventually resulted in incision and drainage and hardware removal. He has continued to have on and off complaints with regards to his left ankle especially continued swelling. He last saw his surgeon Dr. Justice in March 2020. He was discharged from care at that time. He states over the last few days he has had increasing swelling as well as fever and chills. No drainage from the left ankle. Denies any new injury. Review of systems is negative today with the exception of his moderate complaints of pain in his left ankle. Past medical, surgical, family, and social history reviewed in the electronic health record as of October 07, 2020 Exam: Focused exam of the left lower extremity reveals healed incision with no current active drainage. He has moderate to severe swelling around his ankle circumferentially. Generalized tenderness to palpation mostly along the lateral aspect of his ankle. Pain with range of motion both passive and active at the ankle. He has poor skin condition along the foot and ankle. He does have swelling and some erythema up to the mid calf. Sensations intact distally. CT scan was revealed which reveals a fluid collection in the posterior lateral aspect of his ankle approximately 10 cm x 4 cm deep to and lateral to the Achilles complex. Diagnosis and plan: Left ankle complex surgical history with likely local abscess. This point I discussed with him his treatment options. Given his fluid collection I feel he needs incision and drainage. He will possibly require wound VAC application depending on the condition of the underlying tissues. This was discussed with him at length. We will plan on surgical intervention within the next 24 to 48 hours. JINNY GRIFFITHS DO Oct 07, 2020 14:11
[2020-10-07 15:00] VITALS: BP 122/64
[2020-10-07 19:10] VITALS: BP 132/88
[2020-10-07] MEDS: LACTOBACILLUS RHAMNOSUS GG 1 CAPSULE. PO SCH (20:14)
[2020-10-07] MEDS: ZOLPIDEM 5 MG TABLET. PO PRN (22:11)
[2020-10-07 23:00] VITALS: BP 129/70
[2020-10-08] VITALS (15 sets, daily range): BP systolic 113–172; BP diastolic 75–104
[2020-10-08] MEDS: HEPARIN for SUB-Q USE 5,000 UNIT/ML VIAL. SQ SCH ×3 (05:52→22:00)
[2020-10-08 06:49] LABS: HEMATOCRIT 36.1 % (39.0-53.0); HEMOGLOBIN 12.9 g/dL (13.0-17.5); RED BLOOD COUNT 3.75 x10^6/uL (4.30-5.70); RED CELL DISTRIBUTION WIDTH 14.8 % (11.5-14.5); WHITE BLOOD COUNT 9.1 x10^3/uL (4.0-11.0)
[2020-10-08 07:20] LABS: ALBUMIN 2.5 g/dL (3.4-5.0); DIRECT BILIRUBIN 2.9 mg/dL (0.0-0.2); TOTAL BILIRUBIN 3.6 mg/dL (0.2-1.0); TOTAL PROTEIN 6.9 g/dL (6.4-8.2)
[2020-10-08] MEDS ORDERED: PROCHLORPERAZINE 10 MG/2 ML VIAL. IVP PRN (08:30)
[2020-10-08] MEDS ORDERED: IV RINGERS,LACTATED 1000ML 1,000 ML IV SCH (08:30)
[2020-10-08] MEDS ORDERED: fentaNYL PF VIAL 100 MCG/2 ML VIAL IVP PRN ×3 (08:30→10:15)
[2020-10-08] MEDS ORDERED: HYDROmorphone 2 MG/ML VIAL IVP PRN (08:30)
[2020-10-08] MEDS ORDERED: MORPHINE SULFATE 2 MG/ML INJ. IVP PRN (08:30)
[2020-10-08] MEDS: LACTOBACILLUS RHAMNOSUS GG 1 CAPSULE. PO SCH ×2 (09:00→21:13)
[2020-10-08] MEDS: NYSTATIN 100,000 UNIT/GM TOPICAL CREAM 15GM TUBE. TP SCH ×2 (09:00→21:00)
--- NOTE | 2020-10-08 09:08 | PDOC ---
Infectious Disease Note Subjective Subjective Patient is feeling okay continues to still have leg pain. ROS ROS no n/v/d/ Vital Sign Vital Signs Vital Signs Date Time Temp Pulse Resp B/P (MAP) Pulse Ox O2 Delivery O2 Flow Rate FiO2 10/08/20 07:00 98.2 87 16 113/75 (88) 96 Room Air 98.2 10/07/20 19:10 98.0 Physical Exam PHYSICAL EXAM GENERAL: Alert and oriented gentleman, not in distress. VITAL SIGNS: Stable HEENT: Both pupils are round and reacting. No conjunctival lesion, no lesion in the mouth. NECK: Supple, no JVP, no lymphadenopathy. LUNGS: Clear. HEART: S1, S2 regular. ABDOMEN: Soft, nontender, no organomegaly, no tenderness, rebound or guarding. EXTREMITIES: Right lower extremity is normal. Left lower extremity is swollen. There is redness all the way up into the thigh and there is tender lymphadenopathy in the left groin. There is some maceration between the toes. There is no open wound or drainage. NEUROLOGIC: The patient is alert, awake and appropriate. No focal neurologic deficit. Labs Lab Laboratory Tests Test 10/08/20 06:15 White Blood Count 9.1 x10^3/uL (4.0-11.0) Red Blood Count 3.75 x10^6/uL (4.30-5.70) Hemoglobin 12.9 g/dL (13.0-17.5) Hematocrit 36.1 % (39.0-53.0) Mean Corpuscular Volume 96 fL (79-100) Mean Corpuscular Hemoglobin 34 pg (25-35) Mean Corpuscular Hemoglobin Concent 36 g/dL (31-37) Red Cell Distribution Width 14.8 % (11.5-14.5) Platelet Count 129 x10^3/uL (140-400) Total Bilirubin 3.6 mg/dL (0.2-1.0) Direct Bilirubin 2.9 mg/dL (0.0-0.2) Aspartate Amino Transf (AST/SGOT) 78 U/L (15-37) Alanine Aminotransferase (ALT/SGPT) 42 U/L (16-63) Alkaline Phosphatase 120 U/L (46-116) Total Protein 6.9 g/dL (6.4-8.2) Albumin 2.5 g/dL (3.4-5.0) Micro Microbiology 10/05/20 Blood Culture - Preliminary, Resulted NO GROWTH AFTER 1 DAY Objective Assessment IMPRESSION: 1. Fever and chills. improved 2. Leukocytosis. Both are secondary to left lower extremity cellulitis. 3. Left lower extremity cellulitis on top of chronic edema from prior trauma. 4. Tinea infection between the toes. 5. Alcoholic liver disease. 6. Asymptomatic cholelithiasis. Plan Plan of Care Continue antibiotics. Continue leg elevation. ALEJANDRO SHIPMAN MD Oct 08, 2020 09:07
--- NOTE | 2020-10-08 11:15 | NUR ---
SW following. Discussed with RN, pt having surgery this evening at 1830 on his ankle. RN advised no SW needs at this time. SW will continue to follow.
--- NOTE | 2020-10-08 11:17 | PDOC ---
[facility] PROGRESS NOTE Date of Service DOS: DATE: 10/08/20 TIME: 11:14 Chief Complaint Chief Complaint Acute cholecystitis Left lower extremity cellulitis Left inguinal lymphadenopathy Narcotic dependence Alcohol abuse Morbid obesity Severe malnutrition Plan: Continue treatment with IV Rocephin, per ID Consultation placed to general surgery, GI, and ID Left inguinal lymphadenopathy seen on ultrasound likely reactive due to inf ectious process; recommend follow-up to ensure resolution. No evidence of DVT seen on ultrasound left lower extremity; will obtain echocardiogram. Resume home medications FEN - NPO PPX - Heparin FULL CODE Dispo - inpatient for above Patient names his (Ni Lee) as surrogate decision-maker History of Present Illness History of Present Illness Patient is a 35-year-old male with past medical history alcohol abuse, narcotic dependence, morbid obesity, who presents to the ED with complaints of left upper quadrant abdominal pain for the past week. He reports abdominal pain 7/10, with associated intermittent nausea and vomiting. Also notes left lower extremity swelling and pain for the past 2 days. He notes associated drainage from his left ankle, but is unsure if this is been purulent drainage. He does have a history of left lower extremity surgery requiring surgical fixation; states that this was complicated by MRSA infected hardware, which was subsequently removed. He reports regular heavy alcohol intake and takes daily Suboxone for history of narcotic dependence. Labs on admission showed WBC 14, platelets 119, sodium 132, CBG 114, AST 119, ALT 64, CRP 207.2, albumin 2.8, PT 16.1, INR 1.3. Abdominal ultrasound showed cholelithiasis, superimposed gallbladder distention and gallbladder wall thickening, suggestive of cholecystitis. He received broad-spectrum antibiotics and IV fluids. Will admit for further medical management. 10/07/2020: Patient seen and evaluated. He was febrile overnight, T-max 100.6 F. Leukocytosis improving 11. today. Per general surgery, he is a poor surgical candidate and not recommending any surgical interventions at this time. CT left lower extremity yesterday showed fluid collection favoring an abscess; appreciate general surgery input in regards to possible left ankle abscess. Per GI, elevated LFTs likely secondary to history of alcohol abuse, but hepatitis panel pending for thoroughness. Antibiotics have been changed to Rocephin with topical nystatin cream twice daily, per ID. Patient with complaints of uncontrolled pain that he agrees is due to his history of narcotic abuse. Will increase PO pain medications. 10/08/2020: Afebrile. Still with complaints of pain in his left lower extremity. Patient is requesting to speak with the painter and body work, and I informed him that we do not have one available at this hospital. He does have a severe narcotic dependency. He is scheduled to have surgery today. Will give IV pain medications and keep n.p.o. until time of surgery. Continue IV antibiotics, per ID. Vitals/I&O Vitals/I&O: Vital Signs Date Time Temp Pulse Resp B/P (MAP) Pulse Ox O2 Delivery O2 Flow Rate FiO2 10/08/20 07:00 98.2 87 16 113/75 (88) 96 Room Air 98.2 10/07/20 19:10 98.0 I & O 10/07/20 10/07/20 10/08/20 15:00 23:00 07:00 Intake Total 350 ml Output Total 250 ml 250 ml Balance 100 ml -250 ml Physical Exam Physical Exam: General: Alert, Cooperative, mild distress Heart: Regular rate, Normal S1, Normal S2 Lungs: Clear Abdomen: Soft, No tenderness Extremities: Other (3+ edema left lower extremity) Skin: Other (left LE swollen) Labs Labs: Laboratory Tests Test 10/08/20 06:15 White Blood Count 9.1 x10^3/uL (4.0-11.0) Red Blood Count 3.75 x10^6/uL (4.30-5.70) Hemoglobin 12.9 g/dL (13.0-17.5) Hematocrit 36.1 % (39.0-53.0) Mean Corpuscular Volume 96 fL (79-100) Mean Corpuscular Hemoglobin 34 pg (25-35) Mean Corpuscular Hemoglobin Concent 36 g/dL (31-37) Red Cell Distribution Width 14.8 % (11.5-14.5) Platelet Count 129 x10^3/uL (140-400) Total Bilirubin 3.6 mg/dL (0.2-1.0) Direct Bilirubin 2.9 mg/dL (0.0-0.2) Aspartate Amino Transf (AST/SGOT) 78 U/L (15-37) Alanine Aminotransferase (ALT/SGPT) 42 U/L (16-63) Alkaline Phosphatase 120 U/L (46-116) Total Protein 6.9 g/dL (6.4-8.2) Albumin 2.5 g/dL (3.4-5.0) Assessment and Plan Assessmemt and Plan Problems Medical Problems: (1) Cholecystitis Status: Acute (2) Elevated liver enzymes Status: Acute (3) Hyperbilirubinemia Status: Acute (4) Hyponatremia Status: Acute (5) Inguinal lymphadenopathy Status: Acute (6) Jaundice Status: Acute Comment Review of Relevant I have reviewed the following items chevy (where applicable) has been applied. Medications: Current Medications Medications (Trade) Dose Ordered Sig/Deangelo Route PRN Reason Start Time Stop Time Status Last Admin Dose Admin Lactobacillus Rhamnosus (Culturelle) 1 cap BID PO 10/07/20 21:00 10/07/20 20:14 Justifications for Admission Other Justification ROSIE TODD MD Oct 08, 2020 11:17
--- NOTE | 2020-10-08 11:26 | PDOC ---
Date of Service: DATE: 10/08/20 TIME: 11:21 Subjective: Subjective: No GI complaints, no abd pain. NPO today for surgery tonight. Objective: Vital Signs: Vital Signs Date Time Temp Pulse Resp B/P (MAP) Pulse Ox O2 Delivery O2 Flow Rate FiO2 10/08/20 07:00 98.2 87 16 113/75 (88) 96 Room Air 98.2 10/07/20 19:10 98.0 Labs: Laboratory Tests Test 10/08/20 06:15 White Blood Count 9.1 x10^3/uL Red Blood Count 3.75 x10^6/uL Hemoglobin 12.9 g/dL Hematocrit 36.1 % Mean Corpuscular Volume 96 fL Mean Corpuscular Hemoglobin 34 pg Mean Corpuscular Hemoglobin Concent 36 g/dL Red Cell Distribution Width 14.8 % Platelet Count 129 x10^3/uL Total Bilirubin 3.6 mg/dL Direct Bilirubin 2.9 mg/dL Aspartate Amino Transf (AST/SGOT) 78 U/L Alanine Aminotransferase (ALT/SGPT) 42 U/L Alkaline Phosphatase 120 U/L Total Protein 6.9 g/dL Albumin 2.5 g/dL Imaging: GI-related findings on CT A/P 10/03/20 @ [facility]: -hepatosplenomegaly, prominent distention of GB w/ 6cm gallstone, moderate atrophy of pancreas, recanalized periumbilical vein Echo 10/06 <Conclusion> The left ventricular systolic function is normal and the ejection fraction is within normal range. Estimated ejection fraction 65%. There is normal LV segmental wall motion. The ascending aorta is moderately dilated at 4.5 cm PE: GEN: NAD - resting, family present - leg elevated LUNGS: CTAB HEART: RRR ABD: S/ND/NT NEURO/PSYCH: A & O 3 A/P: LLE cellulitis Alcoholic liver disease - LFTs bit better Cholelithiasis - seems incidental finding -- Plans for LLE I&D today. Will follow. No stools charted - will add PRN laxatives. Stop drinking. Justicifation of Admission Dx: Justifications for Admission: Justification of Admission Dx: Yes ANDREE LOPES Oct 08, 2020 11:26
[2020-10-08] MEDS ORDERED: BISACODYL 5 MG TABLET.DR. PO PRN (11:30)
[2020-10-08] MEDS ORDERED: POLYETHYLENE GLYCOL 3350 17 GM PACKET. PO PRN (11:30)
[2020-10-08] MEDS: DOCUSATE SODIUM 100 MG CAPSULE. PO SCH (11:51)
[2020-10-08] MEDS: cefTRIAXone IV Push 2 GM VIAL. IVP SCH (11:58)
[2020-10-08] MEDS: HYDROmorphone 2 MG/ML VIAL IVP PRN (13:54)
[2020-10-08] MEDS ORDERED: ONDANSETRON PF 4 MG/2 ML VIAL. ONE ×2 (16:28→18:33)
[2020-10-08] MEDS ORDERED: fentaNYL PF VIAL 100 MCG/2 ML VIAL ONE ×2 (16:28→18:58)
[2020-10-08] MEDS ORDERED: PROPOFOL 10 MG/ML (20ML) VIAL. IV ONE (16:28)
[2020-10-08] MEDS ORDERED: LIDOCAINE 1% PF 5 ML VIAL. ONE (16:28)
[2020-10-08] MEDS ORDERED: KETAMINE HCL IN NACL, ISO-OSM 50 MG/5 ML SYRINGE ONE (17:14)
[2020-10-08] MEDS ORDERED: HYDROmorphone 2 MG/ML VIAL ONE (17:27)
[2020-10-08] MEDS ORDERED: THROMBIN TOPICAL 20,000 UNIT SPRAY.SYRN KIT TP ONE (18:04)
[2020-10-08] MEDS ORDERED: NALOXONE 0.4 MG/ML VIAL. IV PRN (18:30)
[2020-10-08] MEDS ORDERED: oxyCODONE/APAP 7.5/325 1 TAB TABLET PO PRN (18:30)
[2020-10-08] MEDS: fentaNYL PF VIAL 100 MCG/2 ML VIAL IVP PRN ×2 (19:03→19:18)
--- NOTE | 2020-10-08 19:40 | NUR ---
WOUND VAC ALARMING BLOCKAGE. TUBING CHECKED FOR KINKS AND LEAKS. NONE NOTED. UNTWISTED TUBING AND NOTED LARGE CLOT IN TUBE. REMOVED SUCCESSFULLY AND TUBING FLUSHED WITH 20CC SALINE FLUSHES. WILL MONITOR.
--- NOTE | 2020-10-08 20:11 | NUR ---
back from PACU, report received from DORI Paiz , wound vac not working properly, Dr Stephens was awre and he is to change the vac tonight per DORI Paiz
--- NOTE | 2020-10-08 20:17 | NUR ---
PT BACK TO ROOM 440. WOUND PUMP INDICATING BLOCKAGE AGAIN. DR BUNCH AWARE OF SITUATION. INSTRUCTED PER DR BUNCH TO TURN WOUND PUMP OFF AND HE WILL REASSESS THE WOUND AND VAC AFTER NEXT SURGERY. REPORT GIVEN TO ALE MEADOWS ON 4TH FLOOR. PT A&O. VSS AND WITHOUT COMPLAINTS
[2020-10-08] MEDS: HYDROcodone/APAP 10/325 1 TAB TABLET PO PRN (21:13)
[2020-10-08] MEDS: FAMOTIDINE 20 MG TABLET. PO SCH (21:13)
--- NOTE | 2020-10-08 22:26 | NUR ---
Dr Stephens's answering paged regarding wound vac
[2020-10-08] MEDS: ZOLPIDEM 5 MG TABLET. PO PRN (23:16)
--- NOTE | 2020-10-08 23:32 | NUR ---
incision site and wound vac thorough assessment done by this RN , small leakage noted around edges of dressing, transparent dressing applied , wound vac sealed and functioning at 125mm/hg on continuous therapy , left leg elevated on 2 pillows, Pt not in pain at this time.
--- NOTE | 2020-10-08 23:37 | PDOC4 ---
OPERATIVE NOTE: October 08, 2020 Surgery performed: Incision and drainage with irrigation debridement left ankle Surgeon: Jinny Stephens DO Postop diagnosis: Chronic left ankle deep infection Anesthesia: General Specimens: Deep culture x1 Blood loss: Less than 100 mL Gross findings: Deep fluid collection along the posterior lateral aspect of the ankle joint but deep to the Achilles. Description of procedure: Patient seen in the preoperative holding area site was marked site was verified. He was wheeled back to the operating room lying supine on the operative table. Patient has been receiving perioperative antibiotics. Once on the operative table department anesthesia administered anesthetic and maintain control of the airway. He was then positioned in the left lateral decubitus position with left hip up. Beanbag was deflated. Timeout was observed. Sterile prep and drape was performed left lower extremity. Tourniquet was not used. At this point the area of previous posterior lateral incision was opened sharply. Soft tissue dissection was carried out sharply through the thickened scar tissue superficial to the Achilles tendon. Just lateral to the Achilles tendon the wound was further developed. Once deep to the Achilles egress of adipose type purulent tissue. Cultures were taken. At this point blunt dissection was carried out to release all fluid. Copious irrigation was run through the area and it was suctioned dry. Further blunt dissection was carried out to look for any loculations and none were found. Further irrigation was run through the wound and it was suctioned dry. At this point a VAC sponge was placed into the tracking deep portion as well as into the superficial scar tissue. The VAC was secured in place and suction was applied. A large bulky dressing was applied to apply further compression. Anesthesia was reversed and the patient was transferred to postop in apparent stable condition. Prognosis is guarded secondary to the long-term nature of his recurrent wound problems and possible chronic infection. JINNY STEPHENS DO Oct 08, 2020 23:36
[2020-10-09] VITALS (7 sets, daily range): BP systolic 130–168; BP diastolic 75–100
[2020-10-09 05:21] LABS: ALBUMIN 2.4 g/dL (3.4-5.0); DIRECT BILIRUBIN 2.2 mg/dL (0.0-0.2); TOTAL BILIRUBIN 2.6 mg/dL (0.2-1.0); TOTAL PROTEIN 6.7 g/dL (6.4-8.2)
[2020-10-09] MEDS: HEPARIN for SUB-Q USE 5,000 UNIT/ML VIAL. SQ SCH ×3 (05:45→22:26)
[2020-10-09] MEDS: HYDROcodone/APAP 10/325 1 TAB TABLET PO PRN ×3 (05:47→22:52)
--- NOTE | 2020-10-09 08:13 | PDOC ---
Infectious Disease Note Subjective Subjective Patient is feeling okay continues to still have leg pain. had I and D last night of left ankle ROS ROS no n/v/d/ Vital Sign Vital Signs Vital Signs Date Time Temp Pulse Resp B/P (MAP) Pulse Ox O2 Delivery O2 Flow Rate FiO2 10/09/20 06:17 20 97 Room Air 10/09/20 02:44 98.4 101 136/86 (103) 98.4 10/08/20 19:18 10.0 Physical Exam PHYSICAL EXAM GENERAL: Alert and oriented gentleman, not in distress. VITAL SIGNS: Stable HEENT: Both pupils are round and reacting. No conjunctival lesion, no lesion in the mouth. NECK: Supple, no JVP, no lymphadenopathy. LUNGS: Clear. HEART: S1, S2 regular. ABDOMEN: Soft, nontender, no organomegaly, no tenderness, rebound or guarding. EXTREMITIES: Right lower extremity is normal. Left lower extremity is swollen. There is redness all the way up into the thigh and there is tender lymphadenopathy in the left groin. There is some maceration between the toes. wound vac in place NEUROLOGIC: The patient is alert, awake and appropriate. No focal neurologic deficit. Labs Lab Laboratory Tests Test 10/09/20 04:15 Total Bilirubin 2.6 mg/dL (0.2-1.0) Direct Bilirubin 2.2 mg/dL (0.0-0.2) Aspartate Amino Transf (AST/SGOT) 109 U/L (15-37) Alanine Aminotransferase (ALT/SGPT) 53 U/L (16-63) Alkaline Phosphatase 125 U/L (46-116) Total Protein 6.7 g/dL (6.4-8.2) Albumin 2.4 g/dL (3.4-5.0) Micro Microbiology 10/05/20 Blood Culture - Preliminary, Resulted NO GROWTH AFTER 1 DAY Objective Assessment IMPRESSION: 1. Fever and chills. improved 2. Leukocytosis. Both are secondary to left lower extremity cellulitis. Ankle abscess s/p I and D 3. Left lower extremity cellulitis on top of chronic edema from prior trauma. 4. Tinea infection between the toes. 5. Alcoholic liver disease. 6. Asymptomatic cholelithiasis. Plan Plan of Care Continue antibiotics. Continue leg elevation. wound vac ALEJANDRO SHIPMAN MD Oct 09, 2020 08:13
[2020-10-09] MEDS: NYSTATIN 100,000 UNIT/GM TOPICAL CREAM 15GM TUBE. TP SCH ×2 (09:00→20:48)
--- NOTE | 2020-10-09 09:04 | PDOC ---
PROGRESS NOTES Date of Service: DATE: 10/09/20 TIME: 09:04 Chief Complaint Chief Complaint Acute cholecystitis Left lower extremity cellulitis Left inguinal lymphadenopathy Narcotic dependence Alcohol abuse Morbid obesity Severe malnutrition Plan: Continue treatment with IV Rocephin, per ID Consultation placed to general surgery, GI, and ID Left inguinal lymphadenopathy seen on ultrasound likely reactive due to infectious process; recommend follow-up to ensure resolution. No evidence of DVT seen on ultrasound left lower extremity; will obtain echocardiogram. Resume home medications FEN - NPO PPX - Heparin FULL CODE Dispo - inpatient for above Patient names his (Ni Lee) as surrogate decision-maker History of Present Illness History of Present Illness Patient is a 35-year-old male with past medical history alcohol abuse, narcotic dependence, morbid obesity, who presents to the ED with complaints of left upper quadrant abdominal pain for the past week. He reports abdominal pain 7/10, with associated intermittent nausea and vomiting. Also notes left lower extremity swelling and pain for the past 2 days. He notes associated drainage from his left ankle, but is unsure if this is been purulent drainage. He does have a history of left lower extremity surgery requiring surgical fixation; states that this was complicated by MRSA infected hardware, which was subsequently removed. He reports regular heavy alcohol intake and takes daily Suboxone for history of narcotic dependence. Labs on admission showed WBC 14, platelets 119, sodium 132, CBG 114, AST 119, ALT 64, CRP 207.2, albumin 2.8, PT 16.1, INR 1.3. Abdominal ultrasound showed cholelithiasis, superimposed gallbladder distention and gallbladder wall thickening, suggestive of cholecystitis. He received broad-spectrum antibiotics and IV fluids. Will admit for further medical management. 10/07/2020: Patient seen and evaluated. He was febrile overnight, T-max 100.6 F. Leukocytosis improving 11. today. Per general surgery, he is a poor surgical candidate and not recommending any surgical interventions at this time. CT left lower extremity yesterday showed fluid collection favoring an abscess; apprecia te general surgery input in regards to possible left ankle abscess. Per GI, elevated LFTs likely secondary to history of alcohol abuse, but hepatitis panel pending for thoroughness. Antibiotics have been changed to Rocephin with topical nystatin cream twice daily, per ID. Patient with complaints of uncontrolled pain that he agrees is due to his history of narcotic abuse. Will increase PO pain medications. 10/08/2020: Afebrile. Still with complaints of pain in his left lower extremity. Patient is requesting to speak with the clock and watch hands painter, and I informed him that we do not have one available at this hospital. He does have a severe narcotic dependency. He is scheduled to have surgery today. Will give IV pain medications and keep n.p.o. until time of surgery. Continue IV antibiotics, per ID. 10/09/2020: complex fluid collection within the soft tissues along the posterior lateral ankle at the level of the distal tibia and fibular metaphyses which extends cephalad into the distal calf soft tissues measuring 4.0 cm in maximum thickness and 10.0 cm in maximum length. surrounding cellulitis favors that the fluid collection represents an abscess rather than postoperative seroma. Cholelithiasis. There is superimposed gallbladder distention and gallbladder wall thickening. This may be due to intrinsic liver disease or cholecystitis. Afebrile. Still with complaints of pain in his left lower extremity. requesting to speak with the clock and watch hands painter, does have a severe narcotic dependency. Will give IV pain medications and keep n.p.o. until time of surgery. Continue IV antibiotics, per ID. S/p left ankle I&D 10-08 Alcohol overuse w/ elevated LFTs, thrombocytopenia, // hepatosplenomegaly plts 129K 38 MIN pt exam, chart review, > 50% of time spent with exam, chart review, pt care coordination Vitals Vitals Vital Signs Date Time Temp Pulse Resp B/P (MAP) Pulse Ox O2 Delivery O2 Flow Rate FiO2 10/09/20 07:00 98.7 83 18 132/88 (103) 97 Room Air 98.7 10/08/20 19:18 10.0 Physical Exam Physical Exam GENERAL: Alert and oriented gentleman, not in distress. VITAL SIGNS: Stable HEENT: Both pupils are round and reacting. No conjunctival lesion, no lesion in the mouth. NECK: Supple, no JVP, no lymphadenopathy. LUNGS: Clear. HEART: S1, S2 regular. ABDOMEN: Soft, nontender, no organomegaly, no tenderness, rebound or guarding. EXTREMITIES: Right lower extremity is normal. Left lower extremity is swollen. There is redness all the way up into the thigh and there is tender lymphadenopathy in the left groin. There is some maceration between the toes. wound vac in place NEUROLOGIC: The patient is alert, awake and appropriate. No focal neurologic deficit. General: Alert, Oriented X3, Cooperative, mild distress Heart: Regular rate, Normal S1, Normal S2 Lungs: Clear Abdomen: Soft, No tenderness Extremities: Other (3+ edema left lower extremity) Skin: Other (left LE swollen) Labs LABS EXAM: Left foot and ankle CT without contrast. HISTORY: Cellulitis. Concern for abscess. TECHNIQUE: Computed tomographic images of the left foot and ankle and distal hinson were obtained without contrast. *One or more of the following individualized dose reduction techniques were utilized for this examination: 1. Automated exposure control. 2. Adjustment of the mA and/or kV according to patient size. 3. Use of iterative reconstruction technique. COMPARISON: None. FINDINGS: Evaluation for abscesses is limited due to the absence of contrast. There is extensive soft tissue edema with associated reticulation of the subcutis fat and thickening of the skin. There is a superimposed loculated fluid collection measuring approximately 4.0 cm in maximum thickness along the posterior aspect of the distal tibia and fibular metaphyses. There is linear extension of this fluid extending to the distal calf, measuring approximately 10.0 cm in maximum length. There is a tiny round metallic foreign body along the collection at the level of the distal calf. No soft tissue gas is seen. There is a tibiotalar joint effusion. There are several tiny bone fragments or dense foreign bodies along the anterior and lateral aspects of the distal fibular metadiaphysis. There is a track chevy within the distal fibular metaphysis as well as within the distal tibial metaphysis due to prior instrumentation. There is tibiotalar joint space narrowing with degenerative subchondral sclerosis and subchondral cyst formation. There are tiny chronic appearing nonunited avulsion fracture fragments along the inferior medial malleolus. There is suspected bone demineralization. There is no convincing CT evidence of osteomyelitis. There is a tiny plantar spur. There is enthesopathy at the Achilles tendon insertion. IMPRESSION: 1. Limited evaluation due to the absence of intravenous contrast. There is a complex fluid collection within the soft tissues along the posterior lateral ankle at the level of the distal tibia and fibular metaphyses which extends cephalad into the distal calf soft tissues measuring 4.0 cm in maximum thickness and 10.0 cm in maximum length. The degree of surrounding cellulitis favors that the fluid collection represents an abscess rather than postoperative seroma. 2. Tibiotalar joint effusion. 3. Findings consistent with distal tibia and fibular instrumentation removal. 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 4. Tiny chronic appearing nonunited avulsion fracture fragments along the inferior medial malleolus. Electronically signed by: Stacey Dougherty MD (10/06/2020 3:37 PM) [id number] DICTATED and SIGNED BY: STACEY DOUGHERTY MD DATE: 10/06/20 [id number] SPEC #: [id number] SANDIE: 10/06/20 STATUS: RES REQ #: [id number] RECD: 10/06/[address]: EMPERATRIZ ARMSTRONG APRN SOURCE: BLOOD ENTR: 10/05/[address]: EMILY,STAFF [facility]: NO PCP ORDERED: BCULT Procedure Result BLOOD CULTURE Preliminary NO GROWTH AFTER 3 DAYS PATIENT: EMPERATRIZ PAREDESACCOUNT: [id number] : 1985 LOCATION: ER AGE: 35 SEX: M EXAM STATUS: REG ER ORD. PHYSICIAN: EMPERATRIZ ARMSTRONG APRN REASON: Upper abdominal pain with gallbladder disease, acute jaundice. PROCEDURE: ABDOMEN LTD EXAM: Abdomen sonogram. HISTORY: Pain. TECHNIQUE: Sonographic imaging of the abdomen was performed. COMPARISON: None. FINDINGS: The exam is limited due to bowel gas and body habitus. The liver is enlarged. There is hepatic steatosis. No focal hepatic lesion is seen. There is cholelithiasis. The gallbladder is distended and there is gallbladder wall thickening. The common bile duct is not well seen. The pancreas is obscured due to bowel gas. The right kidney and inferior vena cava are unremarkable. IMPRESSION: 1. Hepatomegaly and hepatic steatosis. 2. Cholelithiasis. There is superimposed gallbladder distention and gallbladder wall thickening. This may be due to intrinsic liver disease or cholecystitis. Correlate with symptomatology. The common bile duct is well seen. 3. Obscured pancreas due to aforementioned study limitations. Electronically signed by: Stacey Dougherty MD (10/05/2020 8:54 PM) [facility] DICTATED and SIGNED BY: STACEY DOUGHERTY MD DATE: 10/05/[id number] 0 Mitral Valve MV E Velocity 117.3cm/s MV DECEL TIME 145ms MV A Velocity 78.2cm/s E/A Ratio 1.5 Pulmonary Valve PV Peak Velocity 128.2cm/s LEFT VENTRICLE The left ventricle is normal size. There is mild concentric left ventricular hypertrophy. The left ventricular systolic function is normal and the ejection fraction is within normal range. Estimated ejection fraction 65%. There is normal LV segmental wall motion. The left ventricular diastolic function and filling is normal for age. RIGHT VENTRICLE The right ventricle is normal size. There is normal right ventricular wall thickness. The right ventricular systolic function is normal. ATRIA The left atrium size is normal. The right atrium size is normal. The interatrial septum is intact with no evidence for an atrial septal defect or patent foramen ovale as noted on 2-D or Doppler imaging. AORTIC VALVE The aortic valve is normal in structure and function. Doppler and Color Flow revealed no significant aortic regurgitation. There is no significant aortic valvular stenosis. MITRAL VALVE The mitral valve is normal in structure and function. There is no evidence of mitral valve prolapse. There is no mitral valve stenosis. Doppler and Color Flow revealed no mitral valve regurgitation noted. TRICUSPID VALVE The tricuspid valve is normal in structure and function. Doppler and Color Flow revealed no tricuspid valve regurgitation noted. There is no tricuspid valve stenosis. PULMONIC VALVE Doppler and Color Flow revealed no pulmonic valvular regurgitation. There is no pulmonic valvular stenosis. GREAT VESSELS The aortic root is normal in size. The ascending aorta is moderately dilated at 4.5 cm The IVC is normal in size and collapses >50% with inspiration. PERICARDIAL EFFUSION There is no evidence of significant pericardial effusion. Critical Notification Critical Value: No <Conclusion> The left ventricular systolic function is normal and the ejection fraction is within normal range. Estimated ejection fraction 65%. There is normal LV segmental wall motion. The ascending aorta is moderately dilated at 4.5 cm Signed by : Nettie Alvarado, Electronically Approved : 10/07/2020 12:38:39 DICTATED and SIGNED BY: NETTIE ALVARADO MD DATE: 10/06/20 [id number] Laboratory Tests Test 10/09/20 04:15 Total Bilirubin 2.6 mg/dL (0.2-1.0) Direct Bilirubin 2.2 mg/dL (0.0-0.2) Aspartate Amino Transf (AST/SGOT) 109 U/L (15-37) Alanine Aminotransferase (ALT/SGPT) 53 U/L (16-63) Alkaline Phosphatase 125 U/L (46-116) Total Protein 6.7 g/dL (6.4-8.2) Albumin 2.4 g/dL (3.4-5.0) Assessment and Plan Assessmemt and Plan Problems Medical Problems: (1) Cholecystitis Status: Acute (2) Elevated liver enzymes Status: Acute (3) Hyperbilirubinemia Status: Acute (4) Hyponatremia Status: Acute (5) Inguinal lymphadenopathy Status: Acute (6) Jaundice Status: Acute Comment Review of Relevant I have reviewed the following items chevy (where applicable) has been applied. Labs Laboratory Tests Test 10/08/20 06:15 10/09/20 04:15 White Blood Count 9.1 x10^3/uL (4.0-11.0) Red Blood Count 3.75 x10^6/uL (4.30-5.70) Hemoglobin 12.9 g/dL (13.0-17.5) Hematocrit 36.1 % (39.0-53.0) Mean Corpuscular Volume 96 fL (79-100) Mean Corpuscular Hemoglobin 34 pg (25-35) Mean Corpuscular Hemoglobin Concent 36 g/dL (31-37) Red Cell Distribution Width 14.8 % (11.5-14.5) Platelet Count 129 x10^3/uL (140-400) Total Bilirubin 3.6 mg/dL (0.2-1.0) 2.6 mg/dL (0.2-1.0) Direct Bilirubin 2.9 mg/dL (0.0-0.2) 2.2 mg/dL (0.0-0.2) Aspartate Amino Transf (AST/SGOT) 78 U/L (15-37) 109 U/L (15-37) Alanine Aminotransferase (ALT/SGPT) 42 U/L (16-63) 53 U/L (16-63) Alkaline Phosphatase 120 U/L (46-116) 125 U/L (46-116) Total Protein 6.9 g/dL (6.4-8.2) 6.7 g/dL (6.4-8.2) Albumin 2.5 g/dL (3.4-5.0) 2.4 g/dL (3.4-5.0) Laboratory Tests Test 10/09/20 04:15 Total Bilirubin 2.6 mg/dL (0.2-1.0) Direct Bilirubin 2.2 mg/dL (0.0-0.2) Aspartate Amino Transf (AST/SGOT) 109 U/L (15-37) Alanine Aminotransferase (ALT/SGPT) 53 U/L (16-63) Alkaline Phosphatase 125 U/L (46-116) Total Protein 6.7 g/dL (6.4-8.2) Albumin 2.4 g/dL (3.4-5.0) Microbiology 10/06/20 Blood Culture - Preliminary, Resulted NO GROWTH AFTER 2 DAYS 10/06/20 Urine Culture - Final, Complete Medications Current Medications Fentanyl Citrate (Fentanyl 2ml Vial) 75 mcg 1X ONCE IVP Last administered on 10/05/20at 21:00; Start 10/05/20 at 19:00; Stop 10/05/20 at 19:01; Status DC Sodium Chloride 1,000 ml @ 1,000 mls/hr 1X ONCE IV Last administered on 10/05/20at 21:00; Start 10/05/20 at 18:30; Stop 10/05/20 at 19:29; Status DC Ondansetron HCl (Zofran) 4 mg PRN Q8HRS PRN IVP NAUSEA/VOMITING 1ST CHOICE; Start 10/05/20 at 21:45; Stop 10/06/20 at 06:49; Status DC Morphine Sulfate (Morphine Sulfate) 4 mg PRN Q2HR PRN IVP SEVERE PAIN 7-10 Last administered on 10/06/20at 15:11; Start 10/05/20 at 21:45; Stop 10/06/20 at 21:44; Status DC Piperacillin Sod/ Tazobactam Sod (Zosyn Per Pharmacy) 1 each PRN DAILY PRN MC SEE COMMENTS; Start 10/05/20 at 21:45; Stop 10/06/20 at 14:03; Status DC Sodium Chloride 1,000 ml @ 125 mls/hr 1X ONCE IV Last administered on 10/06/20at 00:27; Start 10/05/20 at 22:00; Stop 10/06/20 at 05:59; Status DC Piperacillin Sod/ Tazobactam Sod 3.375 gm/Sodium Chloride 50 ml @ 100 mls/hr Q6HRS IV Last administered on 10/06/20at 05:35; Start 10/05/20 at 22:00; Stop 10/06/20 at 09:40; Status DC Ondansetron HCl (Zofran) 4 mg PRN Q6HRS PRN IVP NAUSEA/VOMITING 1ST CHOICE Last administered on 10/06/20at 12:51; Start 10/06/20 at 06:45 Al Hydroxide/Mg Hydroxide (Mylanta Plus Xs) 30 ml PRN Q3HRS PRN PO HEARTBURN / GAS; Start 10/06/20 at 06:45 Calcium Carbonate/ Glycine (Tums) 500 mg PRN Q3HRS PRN PO UPSET STOMACH; Start 10/06/20 at 06:45 Zolpidem Tartrate (Ambien) 5 mg PRN QHS PRN PO INSOMNIA, MAY REPEAT IN 1HR Last administered on 10/08/20at 23:16; Start 10/06/20 at 06:45 Acetaminophen (Tylenol) 650 mg PRN Q6HRS PRN PO Headaches, Temp > 101.5F; Start 10/06/20 at 06:45 Ibuprofen (Motrin) 400 mg PRN Q6HRS PRN PO MILD PAIN 1-3 Last administered on 10/07/20at 20:14; Start 10/06/20 at 06:45 Magnesium Hydroxide (Milk Of Magnesia) 2,400 mg PRN Q12HR PRN PO CONSTIPATION 3RD CHOICE; Start 10/06/20 at 06:45 Heparin Sodium (Porcine) (Heparin Sodium) 5,000 unit Q8HRS SQ Last administered on 10/09/20at 05:45; Start 10/06/20 at 07:00 Non-Formulary Medication (Buprenorphine Hcl ) 8 mg DAILY SL ; Start 10/06/20 at 09:00; Stop 10/07/20 at 13:52; Status DC Perflutren Protein Type A Microsphe (Optison) 0.66 mg 1X ONCE IV ; Start 10/06/20 at 08:45; Stop 10/06/20 at 08:46; Status DC Perflutren Protein Type A Microsphe (Optison) 0.66 mg STK-MED ONCE IV ; Start 10/06/20 at 08:43; Stop 10/06/20 at 08:43; Status DC Ceftriaxone Sodium (Rocephin) 2 gm Q24H IVP Last administered on 10/08/20at 11:58; Start 10/06/20 at 12:00 Nystatin (Mycostatin) 1 erika BID TP Last administered on 10/07/20at 20:14; Start 10/06/20 at 12:00 Perflutren Protein Type A Microsphe (Optison) 0.66 mg STK-MED ONCE IV ; Start 10/06/20 at 09:00; Stop 10/07/20 at 08:44; Status DC Acetaminophen/ Hydrocodone Bitart (Lortab 7.5/325) 1 tab PRN Q6HRS PRN PO MODERATE PAIN Last administered on 10/07/20at 16:33; Start 10/07/20 at 09:00; Stop 10/08/20 at 18:16; Status DC Acetaminophen/ Hydrocodone Bitart (Lortab 10/325) 1 tab PRN Q6HRS PRN PO SEVERE PAIN 2ND CHOICE Last administered on 10/09/20at 05:47; Start 10/07/20 at 09:00 Acetaminophen/ Hydrocodone Bitart (Lortab 5/325) 1 tab PRN Q4HRS PRN PO MILD PAIN 1-3; Start 10/07/20 at 09:00; Stop 10/08/20 at 18:16; Status DC Lactobacillus Rhamnosus (Culturelle) 1 cap BID PO Last administered on 10/08/20at 21:13; Start 10/07/20 at 21:00 Fentanyl Citrate (Fentanyl 2ml Vial) 25 mcg PRN Q5MIN PRN IVP MILD PAIN 1-3; Start 10/08/20 at 08:30; Stop 10/09/20 at 08:29; Status DC Fentanyl Citrate (Fentanyl 2ml Vial) 50 mcg PRN Q5MIN PRN IVP MODERATE PAIN 4-6 Last administered on 10/08/20at 19:18; Start 10/08/20 at 08:30; Stop 10/09/20 at 08: 29; Status DC Morphine Sulfate (Morphine Sulfate) 1 mg PRN Q10MIN PRN IVP SEVERE PAIN 7-10; Start 10/08/20 at 08:30; Stop 10/09/20 at 08:29; Status DC Ringer's Solution 1,000 ml @ 30 mls/hr Q24H IV ; Start 10/08/20 at 08:30; Stop 10/08/20 at 20:29; Status DC Hydromorphone HCl (Dilaudid) 0.5 mg PRN Q10MIN PRN IVP SEVERE PAIN 7-10, 2nd CHOICE; Start 10/08/20 at 08:30; Stop 10/08/20 at 18:16; Status DC Prochlorperazine Edisylate (Compazine) 5 mg PACU PRN PRN IVP NAUSEA, MRX1; Start 10/08/20 at 08:30; Stop 10/09/20 at 08:29; Status DC Fentanyl Citrate (Fentanyl 2ml Vial) 50 mcg PRN Q2HR PRN IVP MILD PAIN 1-3 Last administered on 10/08/20at 11:59; Start 10/08/20 at 10:15 Fentanyl Citrate (Fentanyl 2ml Vial) 75 mcg PRN Q2HR PRN IVP MODERATE PAIN; Start 10/08/20 at 10:15 Hydromorphone HCl (Dilaudid) 2 mg PRN Q4HRS PRN IVP SEVERE PAIN Last administered on 10/08/20at 13:54; Start 10/08/20 at 11:15 Docusate Sodium (Colace) 100 mg DAILY PO ; Start 10/08/20 at 12:00 Polyethylene Glycol (miraLAX PACKET) 17 gm PRN DAILY PRN PO CONSTIPATION; Start 10/08/20 at 11:30 Bisacodyl (Dulcolax Tab) 10 mg PRN DAILY PRN PO CONSTIPATION, 2ND CHOICE; Start 10/08/20 at 11:30 Famotidine (Pepcid) 20 mg QHS PO Last administered on 10/08/20at 21:13; Start 10/08/20 at 21:00 Ondansetron HCl (Zofran) 4 mg STK-MED ONCE .ROUTE ; Start 10/08/20 at 16:28; Stop 10/08/20 at 16:28; Status DC Propofol (Diprivan) 200 mg STK-MED ONCE IV ; Start 10/08/20 at 16:28; Stop 10/08/20 at 16:28; Status DC Lidocaine HCl (Xylocaine-Mpf 1% 5ml Vial) 5 ml STK-MED ONCE .ROUTE ; Start 10/08/20 at 16:28; Stop 10/08/20 at 16:28; Status DC Fentanyl Citrate (Fentanyl 2ml Vial) 100 mcg STK-MED ONCE .ROUTE ; Start 10/08/20 at 16:28; Stop 10/08/20 at 16:28; Status DC Ketamine HCl (Ketamine) 50 mg STK-MED ONCE .ROUTE ; Start 10/08/20 at 17:14; Stop 10/08/20 at 17:14; Status DC Hydromorphone HCl (Dilaudid) 2 mg STK-MED ONCE .ROUTE ; Start 10/08/20 at 17:27; Stop 10/08/20 at 17:27; Status DC Thrombin 20,000 unit STK-MED ONCE TP Last administered on 10/08/20at 18:06; Start 10/08/20 at 18:04; Stop 10/08/20 at 18:04; Status DC Lorazepam (Ativan) 2 mg PRN Q6HRS PRN PO ANXIETY / AGITATION; Start 10/08/20 at 18:15 Lorazepam (Ativan Inj) 1 mg PRN Q4HRS PRN IVP ANXIETY / AGITATION; Start 10/08/20 at 18:15 Oxycodone/ Acetaminophen (Percocet 7.5/ 325) 1 tab PRN Q4HRS PRN PO MILD- MODERATE PAIN; Start 10/08/20 at 18:30 Oxycodone/ Acetaminophen (Percocet 10/325) 1 tab PRN Q4HRS PRN PO SEVERE PAIN 7-10; Start 10/08/20 at 18:30 Naloxone HCl (Narcan) 0.4 mg PRN Q2MIN PRN IV SEE COMMENTS; Start 10/08/20 at 18:30 Ondansetron HCl (Zofran) 4 mg STK-MED ONCE .ROUTE ; Start 10/08/20 at 18:33; Stop 10/08/20 at 18:34; Status DC Fentanyl Citrate (Fentanyl 2ml Vial) 100 mcg STK-MED ONCE .ROUTE ; Start 10/08/20 at 18:58; Stop 10/08/20 at 18:59; Status DC Active Scripts Active Reported Buprenorphine Hcl 8 Mg Tab.subl 8 Mg SL DAILY 30 Days Vitals/I & O Vital Sign - Last 24 Hours 10/08/20 10/08/20 10/08/20 10/08/20 11:00 11:59 13:43 13:54 Temp 98.4 98.4 Pulse 88 Resp 16 B/P (MAP) 130/88 (102) Pulse Ox 97 O2 Delivery Room Air Room Air Room Air Room Air 10/08/20 10/08/20 10/08/20 10/08/20 15:00 15:48 16:32 18:32 Temp 98.3 99.6 99.9 98.3 99.6 99.9 Pulse 89 86 108 Resp 16 15 20 B/P (MAP) 120/79 (93) 153/98 156/86 Pulse Ox 95 98 100 O2 Delivery Room Air Room Air Room Air Simple Mask O2 Flow Rate 10 10/08/20 10/08/20 10/08/20 10/08/20 18:32 18:47 19:02 19:03 Pulse 110 110 Resp 20 20 B/P (MAP) 160/84 141/86 Pulse Ox 96 100 O2 Delivery Room Air Room Air Room Air Room Air O2 Flow Rate 10 10.0 10/08/20 10/08/20 10/08/20 10/08/20 19:18 19:27 20:10 20:15 Temp 99.9 98.7 99.9 98.7 Pulse 110 109 Resp 20 19 B/P (MAP) 141/86 122/86 (98) Pulse Ox 100 100 96 O2 Delivery Room Air Room Air Room Air Room Air O2 Flow Rate 10.0 10/08/20 10/08/20 10/08/20 10/08/20 20:15 20:30 20:45 21:13 Pulse 98 112 110 Resp 20 B/P (MAP) 122/86 (98) 162/104 (123) 172/94 (120) Pulse Ox 96 O2 Delivery Room Air 10/08/20 10/08/20 10/08/20 10/08/20 21:15 21:30 21:43 21:45 Pulse 105 106 105 Resp 20 B/P (MAP) 144/90 (108) 142/83 (102) 142/83 (102) O2 Delivery Room Air 10/08/20 10/08/20 10/08/20 10/08/20 22:00 22:30 23:00 23:30 Temp 98.8 98.8 Pulse 98 102 108 94 Resp 18 B/P (MAP) 140/77 (98) 141/83 (102) 141/83 (102) 137/79 (98) Pulse Ox 95 O2 Delivery Room Air 10/09/20 10/09/20 10/09/20 10/09/20 00:00 02:44 05:47 06:17 Temp 98.4 98.4 Pulse 112 101 Resp 22 20 20 B/P (MAP) 168/100 (122) 136/86 (103) Pulse Ox 97 97 97 O2 Delivery Room Air Room Air Room Air 10/09/20 07:00 Temp 98.7 98.7 Pulse 83 Resp 18 B/P (MAP) 132/88 (103) Pulse Ox 97 O2 Delivery Room Air Intake and Output 10/08/20 10/08/20 10/09/20 15:00 23:00 07:00 Intake Total 200 ml 300 ml Output Total 500 ml 100 ml 350 ml Balance -500 ml 100 ml -50 ml Justicifation of Admission Dx: Justifications for Admission: Justification of Admission Dx: Yes KANNAN CISNEROS MD Oct 09, 2020 09:04
--- NOTE | 2020-10-09 09:14 | PDOC ---
Date of Service: DATE: 10/09/20 TIME: 09:11 Subjective: Subjective: No GI complaints - no abd pain, tolerating diet, has stooled twice. Objective: Vital Signs: Vital Signs Date Time Temp Pulse Resp B/P (MAP) Pulse Ox O2 Delivery O2 Flow Rate FiO2 10/09/20 07:00 98.7 83 18 132/88 (103) 97 Room Air 98.7 10/08/20 19:18 10.0 Labs: Laboratory Tests Test 10/09/20 04:15 Total Bilirubin 2.6 mg/dL Direct Bilirubin 2.2 mg/dL Aspartate Amino Transf (AST/SGOT) 109 U/L Alanine Aminotransferase (ALT/SGPT) 53 U/L Alkaline Phosphatase 125 U/L Total Protein 6.7 g/dL Albumin 2.4 g/dL PE: GEN: NAD LUNGS: CTAB HEART: RRR ABD: soft, non-tender EXTREM: LLE elevated w/ wound vac, dressing NEURO/PSYCH: A & O 3 A/P: S/p left ankle I&D Alcohol overuse w/ elevated LFTs, thrombocytopenia, and hepatosplenomegaly -- Continue support GI-carson. Counseled re: avoidance of alcohol. Justicifation of Admission Dx: Justifications for Admission: Justification of Admission Dx: Yes ANDREE LOPES Oct 09, 2020 09:14
[2020-10-09] MEDS: LACTOBACILLUS RHAMNOSUS GG 1 CAPSULE. PO SCH ×2 (09:16→20:44)
[2020-10-09] MEDS: DOCUSATE SODIUM 100 MG CAPSULE. PO SCH (09:16)
[2020-10-09] MEDS: oxyCODONE/APAP 10/325 1 TAB TABLET PO PRN ×2 (12:45→20:44)
[2020-10-09] MEDS: cefTRIAXone IV Push 2 GM VIAL. IVP SCH (12:45)
[2020-10-09] MEDS: FAMOTIDINE 20 MG TABLET. PO SCH (20:44)
[2020-10-09] MEDS: ZOLPIDEM 5 MG TABLET. PO PRN (22:52)
[2020-10-10 03:41] VITALS: BP 143/100
[2020-10-10] MEDS: HEPARIN for SUB-Q USE 5,000 UNIT/ML VIAL. SQ SCH ×3 (05:40→22:38)
[2020-10-10] MEDS: HYDROcodone/APAP 10/325 1 TAB TABLET PO PRN ×3 (05:56→20:40)
[2020-10-10 07:00] VITALS: BP 149/101
[2020-10-10 08:19] LABS: BASO # 0.1 x10^3/uL (0.0-0.2); BASO % 1 % (0-3); EOS # 0.1 x10^3/uL (0.0-0.7); EOS % 1 % (0-3); HEMOGLOBIN 11.3 g/dL (13.0-17.5); LYMPH # 2.4 x10^3/uL (1.0-4.8); LYMPH % 33 % (24-48); MEAN CORPUSCULAR HEMOGLOBIN 33 pg (25-35); MEAN CORPUSCULAR HGB CONC 34 g/dL (31-37); MEAN CORPUSCULAR VOLUME 97 fL (79-100); MONO # 0.9 x10^3/uL (0.0-1.1); MONO % 12 % (0-9); NEUT # 3.9 x10^3/uL (1.8-7.7); NEUT % 53 % (31-73); PLATELET COUNT 162 x10^3/uL (140-400); RED BLOOD COUNT 3.41 x10^6/uL (4.30-5.70); RED CELL DISTRIBUTION WIDTH 14.7 % (11.5-14.5); WHITE BLOOD COUNT 7.3 x10^3/uL (4.0-11.0)
--- NOTE | 2020-10-10 08:20 | PDOC ---
Infectious Disease Note Subjective Subjective Patient is feeling okay continues to still have leg pain. ROS ROS no n/v/d/ Vital Sign Vital Signs Vital Signs Date Time Temp Pulse Resp B/P (MAP) Pulse Ox O2 Delivery O2 Flow Rate FiO2 10/10/20 07:55 Room Air 10/10/20 03:41 98.6 18 20 143/100 (114) 96 98.6 Physical Exam PHYSICAL EXAM GENERAL: Alert and oriented gentleman, not in distress. VITAL SIGNS: Stable HEENT: Both pupils are round and reacting. No conjunctival lesion, no lesion in the mouth. NECK: Supple, no JVP, no lymphadenopathy. LUNGS: Clear. HEART: S1, S2 regular. ABDOMEN: Soft, nontender, no organomegaly, no tenderness, rebound or guarding. EXTREMITIES: Right lower extremity is normal. Left lower extremity is swollen. There is redness all the way up into the thigh and there is tender lymphadenopathy in the left groin. There is some maceration between the toes. wound vac in place NEUROLOGIC: The patient is alert, awake and appropriate. No focal neurologic deficit. Labs Micro Microbiology 10/05/20 Blood Culture - Preliminary, Resulted NO GROWTH AFTER 1 DAY Objective Assessment IMPRESSION: 1. Fever and chills. improved 2. Leukocytosis. Both are secondary to left lower extremity cellulitis. Ankle abscess s/p I and D 3. Left lower extremity cellulitis on top of chronic edema from prior trauma. 4. Tinea infection between the toes. 5. Alcoholic liver disease. 6. Asymptomatic cholelithiasis. Plan Plan of Care Continue antibiotics. Continue leg elevation. wound vac ALEJANDRO SHIPMAN MD Oct 10, 2020 08:20
[2020-10-10] MEDS: DOCUSATE SODIUM 100 MG CAPSULE. PO SCH (08:30)
[2020-10-10] MEDS: oxyCODONE/APAP 10/325 1 TAB TABLET PO PRN (08:30)
[2020-10-10] MEDS: LACTOBACILLUS RHAMNOSUS GG 1 CAPSULE. PO SCH ×2 (08:30→20:39)
[2020-10-10] MEDS: NYSTATIN 100,000 UNIT/GM TOPICAL CREAM 15GM TUBE. TP SCH ×2 (08:30→20:41)
[2020-10-10 08:34] LABS: CALCIUM 8.6 mg/dL (8.5-10.1); CREATININE 0.7 mg/dL (0.7-1.3); GFR 155.3; POTASSIUM 3.8 mmol/L (3.5-5.1)
--- NOTE | 2020-10-10 09:09 | PDOC ---
Date of Service: DATE: 10/10/20 TIME: 09:07 Subjective: Subjective: Leg feels better. No GI complaints. Objective: Vital Signs: Vital Signs Date Time Temp Pulse Resp B/P (MAP) Pulse Ox O2 Delivery O2 Flow Rate FiO2 10/10/20 07:55 Room Air 10/10/20 03:41 98.6 18 20 143/100 (114) 96 98.6 Labs: Laboratory Tests Test 10/10/20 07:55 White Blood Count 7.3 x10^3/uL Red Blood Count 3.41 x10^6/uL Hemoglobin 11.3 g/dL Hematocrit 33.0 % Mean Corpuscular Volume 97 fL Mean Corpuscular Hemoglobin 33 pg Mean Corpuscular Hemoglobin Concent 34 g/dL Red Cell Distribution Width 14.7 % Platelet Count 162 x10^3/uL Neutrophils (%) (Auto) 53 % Lymphocytes (%) (Auto) 33 % Monocytes (%) (Auto) 12 % Eosinophils (%) (Auto) 1 % Basophils (%) (Auto) 1 % Neutrophils # (Auto) 3.9 x10^3/uL Lymphocytes # (Auto) 2.4 x10^3/uL Monocytes # (Auto) 0.9 x10^3/uL Eosinophils # (Auto) 0.1 x10^3/uL Basophils # (Auto) 0.1 x10^3/uL Sodium Level 138 mmol/L Potassium Level 3.8 mmol/L Chloride Level 102 mmol/L Carbon Dioxide Level 29 mmol/L Anion Gap 7 Blood Urea Nitrogen 7 mg/dL Creatinine 0.7 mg/dL Estimated GFR (Cockcroft-Gault) 155.3 Glucose Level 98 mg/dL Calcium Level 8.6 mg/dL BLOOD CULTURE Preliminary NO GROWTH AFTER 4 DAYS PE: GEN: NAD LUNGS: CTAB HEART: RRR ABD: S/ND/NT EXTREM: LLE elevated w/ dressing, wound vac NEURO/PSYCH: A & O 3 A/P: S/p left ankle I&D Alcohol overuse w/ elevated LFTs (favorable trend) and hepatosplenomegaly Anemia (post-op) -- Stable GI-carson. Quit drinking. Check anemia parameters for completeness. Justicifation of Admission Dx: Justifications for Admission: Justification of Admission Dx: Yes ANDREE LOPES Oct 10, 2020 09:09
--- NOTE | 2020-10-10 10:47 | PDOC ---
PROGRESS NOTES Date of Service: DATE: 10/10/20 TIME: 10:47 Chief Complaint Chief Complaint Acute cholecystitis Left lower extremity cellulitis Left inguinal lymphadenopathy Narcotic dependence Alcohol abuse Morbid obesity Severe malnutrition Plan: Continue treatment with IV Rocephin, per ID Consultation placed to general surgery, GI, and ID Left inguinal lymphadenopathy seen on ultrasound likely reactive due to infectious process; recommend follow-up to ensure resolution. No evidence of DVT seen on ultrasound left lower extremity; will obtain echocardiogram. Resume home medications FEN - NPO PPX - Heparin FULL CODE Dispo - inpatient for above Patient names his (Ni Lee) as surrogate decision-maker History of Present Illness History of Present Illness Patient is a 35-year-old male with past medical history alcohol abuse, narcotic dependence, morbid obesity, who presents to the ED with complaints of left upper quadrant abdominal pain for the past week. He reports abdominal pain 7/10, with associated intermittent nausea and vomiting. Also notes left lower extremity swelling and pain for the past 2 days. He notes associated drainage from his left ankle, but is unsure if this is been purulent drainage. He does have a history of left lower extremity surgery requiring surgical fixation; states that this was complicated by MRSA infected hardware, which was subsequently removed. He reports regular heavy alcohol intake and takes daily Suboxone for history of narcotic dependence. Labs on admission showed WBC 14, platelets 119, sodium 132, CBG 114, AST 119, ALT 64, CRP 207.2, albumin 2.8, PT 16.1, INR 1.3. Abdominal ultrasound showed cholelithiasis, superimposed gallbladder distention and gallbladder wall thickening, suggestive of cholecystitis. He received broad-spectrum antibiotics and IV fluids. Will admit for further medical management. 10/07/2020: Patient seen and evaluated. He was febrile overnight, T-max 100.6 F. Leukocytosis improving 11. today. Per general surgery, he is a poor surgical candidate and not recommending any surgical interventions at this time. CT left lower extremity yesterday showed fluid collection favoring an abscess; apprecia te general surgery input in regards to possible left ankle abscess. Per GI, elevated LFTs likely secondary to history of alcohol abuse, but hepatitis panel pending for thoroughness. Antibiotics have been changed to Rocephin with topical nystatin cream twice daily, per ID. Patient with complaints of uncontrolled pain that he agrees is due to his history of narcotic abuse. Will increase PO pain medications. 10/08/2020: Afebrile. Still with complaints of pain in his left lower extremity. Patient is requesting to speak with the painter plate, and I informed him that we do not have one available at this hospital. He does have a severe narcotic dependency. He is scheduled to have surgery today. Will give IV pain medications and keep n.p.o. until time of surgery. Continue IV antibiotics, per ID. 10/10/2020: complex fluid collection within the soft tissues along the posterior lateral ankle at the level of the distal tibia and fibular metaphyses which extends cephalad into the distal calf soft tissues measuring 4.0 cm in maximum thickness and 10.0 cm in maximum length. surrounding cellulitis favors that the fluid collection represents an abscess rather than postoperative seroma. Cholelithiasis. There is superimposed gallbladder distention and gallbladder wall thickening. This may be due to intrinsic liver disease or cholecystitis. Afebrile. Still with complaints of pain in his left lower extremity. requesting to speak with the painter plate, does have a severe narcotic dependency. Will give IV pain medications and keep n.p.o. until time of surgery. Continue IV antibiotics, per ID. S/p left ankle I&D 8 Alcohol overuse w/ elevated LFTs, thrombocytopenia, // hepatosplenomegaly plts 129K 28 MIN pt exam, chart review, > 50% of time spent with exam, chart review, pt care coordination 10/09/2020: complex fluid collection within the soft tissues along the posterior lateral ankle at the level of the distal tibia and fibular metaphyses which extends cephalad into the distal calf soft tissues measuring 4.0 cm in maximum thickness and 10.0 cm in maximum length. surrounding cellulitis favors that the fluid collection represents an abscess rather than postoperative seroma. Cholelithiasis. There is superimposed gallbladder distention and gallbladder wall thickening. This may be due to intrinsic liver disease or cholecystitis. Afebrile. Still with complaints of pain in his left lower extremity. requesting to speak with the painter plate, does have a severe narcotic dependency. Will give IV pain medications and keep n.p.o. until time of surgery. Continue IV antibiotics, per ID. S/p left ankle I&D 8 Alcohol overuse w/ elevated LFTs, thrombocytopenia, // hepatosplenomegaly plts 129K 38 MIN pt exam, chart review, > 50% of time spent with exam, chart review, pt care coordination Vitals Vitals Vital Signs Date Time Temp Pulse Resp B/P (MAP) Pulse Ox O2 Delivery O2 Flow Rate FiO2 10/10/20 07:55 Room Air 10/10/20 07:00 97.7 18 20 149/101 (117) 97 97.7 Physical Exam Physical Exam GENERAL: Alert and oriented gentleman, not in distress. VITAL SIGNS: Stable HEENT: Both pupils are round and reacting. No conjunctival lesion, no lesion in the mouth. NECK: Supple, no JVP, no lymphadenopathy. LUNGS: Clear. HEART: S1, S2 regular. ABDOMEN: Soft, nontender, no organomegaly, no tenderness, rebound or guarding. EXTREMITIES: Right lower extremity is normal. Left lower extremity is swollen. There is redness all the way up into the thigh and there is tender lymphadenopathy in the left groin. There is some maceration between the toes. wound vac in place NEUROLOGIC: The patient is alert, awake and appropriate. No focal neurologic deficit. General: Alert, Oriented X3, Cooperative, No acute distress, mild distress Heart: Regular rate, Normal S1, Normal S2 Lungs: Clear Abdomen: Normal bowel sounds, Soft, No tenderness Extremities: Other (3+ edema left lower extremity) Skin: Other (left LE swollen) Labs LABS GIGI GIFFORD MD NO PCP GIGI DALTON MD ORDERED: ANAER/AERSHREYA/VLAD COMMENTS: LEFT DEEP ANKLE Procedure Result GRAM STAIN Final Final NO ORGANISMS SEEN. RBC:MANY SQUAMOUS EPI CELL:NONE SEEN PMN (WBCs):RARE Unless otherwise specified, Testing Performed by: [facility] [address] [place] [address] For Inquires, the Physician may contact the Microbiology department at [phone] ANAEROBIC-AEROBIC CULTURE Preliminary Preliminary No Growth on 10/10/20 at 0908 Unless otherwise specified, Testing Performed by: [facility] [address] [place] [address] For Inquires, the Physician may contact the Microbiology department at [phone] Laboratory Tests Test 10/10/20 07:55 White Blood Count 7.3 x10^3/uL (4.0-11.0) Red Blood Count 3.41 x10^6/uL (4.30-5.70) Hemoglobin 11.3 g/dL (13.0-17.5) Hematocrit 33.0 % (39.0-53.0) Mean Corpuscular Volume 97 fL (79-100) Mean Corpuscular Hemoglobin 33 pg (25-35) Mean Corpuscular Hemoglobin Concent 34 g/dL (31-37) Red Cell Distribution Width 14.7 % (11.5-14.5) Platelet Count 162 x10^3/uL (140-400) Neutrophils (%) (Auto) 53 % (31-73) Lymphocytes (%) (Auto) 33 % (24-48) Monocytes (%) (Auto) 12 % (0-9) Eosinophils (%) (Auto) 1 % (0-3) Basophils (%) (Auto) 1 % (0-3) Neutrophils # (Auto) 3.9 x10^3/uL (1.8-7.7) Lymphocytes # (Auto) 2.4 x10^3/uL (1.0-4.8) Monocytes # (Auto) 0.9 x10^3/uL (0.0-1.1) Eosinophils # (Auto) 0.1 x10^3/uL (0.0-0.7) Basophils # (Auto) 0.1 x10^3/uL (0.0-0.2) Sodium Level 138 mmol/L (136-145) Potassium Level 3.8 mmol/L (3.5-5.1) Chloride Level 102 mmol/L (98-107) Carbon Dioxide Level 29 mmol/L (21-32) Anion Gap 7 (6-14) Blood Urea Nitrogen 7 mg/dL (8-26) Creatinine 0.7 mg/dL (0.7-1.3) Estimated GFR (Cockcroft-Gault) 155.3 Glucose Level 98 mg/dL (70-99) Calcium Level 8.6 mg/dL (8.5-10.1) Iron Level 49 ug/dL (65-175) Total Iron Binding Capacity 190 ug/dL (250-450) Iron Saturation 26 % (15-34) Assessment and Plan Assessmemt and Plan Problems Medical Problems: (1) Cholecystitis Status: Acute (2) Elevated liver enzymes Status: Acute (3) Hyperbilirubinemia Status: Acute (4) Hyponatremia Status: Acute (5) Inguinal lymphadenopathy Status: Acute (6) Jaundice Status: Acute Comment Review of Relevant I have reviewed the following items chevy (where applicable) has been applied. Labs Laboratory Tests Test 10/09/20 04:15 10/10/20 07:55 Total Bilirubin 2.6 mg/dL (0.2-1.0) Direct Bilirubin 2.2 mg/dL (0.0-0.2) Aspartate Amino Transf (AST/SGOT) 109 U/L (15-37) Alanine Aminotransferase (ALT/SGPT) 53 U/L (16-63) Alkaline Phosphatase 125 U/L (46-116) Total Protein 6.7 g/dL (6.4-8.2) Albumin 2.4 g/dL (3.4-5.0) White Blood Count 7.3 x10^3/uL (4.0-11.0) Red Blood Count 3.41 x10^6/uL (4.30-5.70) Hemoglobin 11.3 g/dL (13.0-17.5) Hematocrit 33.0 % (39.0-53.0) Mean Corpuscular Volume 97 fL (79-100) Mean Corpuscular Hemoglobin 33 pg (25-35) Mean Corpuscular Hemoglobin Concent 34 g/dL (31-37) Red Cell Distribution Width 14.7 % (11.5-14.5) Platelet Count 162 x10^3/uL (140-400) Neutrophils (%) (Auto) 53 % (31-73) Lymphocytes (%) (Auto) 33 % (24-48) Monocytes (%) (Auto) 12 % (0-9) Eosinophils (%) (Auto) 1 % (0-3) Basophils (%) (Auto) 1 % (0-3) Neutrophils # (Auto) 3.9 x10^3/uL (1.8-7.7) Lymphocytes # (Auto) 2.4 x10^3/uL (1.0-4.8) Monocytes # (Auto) 0.9 x10^3/uL (0.0-1.1) Eosinophils # (Auto) 0.1 x10^3/uL (0.0-0.7) Basophils # (Auto) 0.1 x10^3/uL (0.0-0.2) Sodium Level 138 mmol/L (136-145) Potassium Level 3.8 mmol/L (3.5-5.1) Chloride Level 102 mmol/L (98-107) Carbon Dioxide Level 29 mmol/L (21-32) Anion Gap 7 (6-14) Blood Urea Nitrogen 7 mg/dL (8-26) Creatinine 0.7 mg/dL (0.7-1.3) Estimated GFR (Cockcroft-Gault) 155.3 Glucose Level 98 mg/dL (70-99) Calcium Level 8.6 mg/dL (8.5-10.1) Iron Level 49 ug/dL (65-175) Total Iron Binding Capacity 190 ug/dL (250-450) Iron Saturation 26 % (15-34) Laboratory Tests Test 10/10/20 07:55 White Blood Count 7.3 x10^3/uL (4.0-11.0) Red Blood Count 3.41 x10^6/uL (4.30-5.70) Hemoglobin 11.3 g/dL (13.0-17.5) Hematocrit 33.0 % (39.0-53.0) Mean Corpuscular Volume 97 fL (79-100) Mean Corpuscular Hemoglobin 33 pg (25-35) Mean Corpuscular Hemoglobin Concent 34 g/dL (31-37) Red Cell Distribution Width 14.7 % (11.5-14.5) Platelet Count 162 x10^3/uL (140-400) Neutrophils (%) (Auto) 53 % (31-73) Lymphocytes (%) (Auto) 33 % (24-48) Monocytes (%) (Auto) 12 % (0-9) Eosinophils (%) (Auto) 1 % (0-3) Basophils (%) (Auto) 1 % (0-3) Neutrophils # (Auto) 3.9 x10^3/uL (1.8-7.7) Lymphocytes # (Auto) 2.4 x10^3/uL (1.0-4.8) Monocytes # (Auto) 0.9 x10^3/uL (0.0-1.1) Eosinophils # (Auto) 0.1 x10^3/uL (0.0-0.7) Basophils # (Auto) 0.1 x10^3/uL (0.0-0.2) Sodium Level 138 mmol/L (136-145) Potassium Level 3.8 mmol/L (3.5-5.1) Chloride Level 102 mmol/L (98-107) Carbon Dioxide Level 29 mmol/L (21-32) Anion Gap 7 (6-14) Blood Urea Nitrogen 7 mg/dL (8-26) Creatinine 0.7 mg/dL (0.7-1.3) Estimated GFR (Cockcroft-Gault) 155.3 Glucose Level 98 mg/dL (70-99) Calcium Level 8.6 mg/dL (8.5-10.1) Iron Level 49 ug/dL (65-175) Total Iron Binding Capacity 190 ug/dL (250-450) Iron Saturation 26 % (15-34) Microbiology 10/08/20 Gram Stain - Final, Resulted 10/08/20 Aerobic and Anaerobic Culture - Preliminary, Resulted 10/06/20 Blood Culture - Preliminary, Resulted NO GROWTH AFTER 4 DAYS 10/06/20 Urine Culture - Final, Complete Medications Current Medications Fentanyl Citrate (Fentanyl 2ml Vial) 75 mcg 1X ONCE IVP Last administered on 10/05/20at 21:00; Start 10/05/20 at 19:00; Stop 10/05/20 at 19:01; Status DC Sodium Chloride 1,000 ml @ 1,000 mls/hr 1X ONCE IV Last administered on 10/05/20at 21:00; Start 10/05/20 at 18:30; Stop 10/05/20 at 19:29; Status DC Ondansetron HCl (Zofran) 4 mg PRN Q8HRS PRN IVP NAUSEA/VOMITING 1ST CHOICE; Start 10/05/20 at 21:45; Stop 10/06/20 at 06:49; Status DC Morphine Sulfate (Morphine Sulfate) 4 mg PRN Q2HR PRN IVP SEVERE PAIN 7-10 Last administered on 10/06/20at 15:11; Start 10/05/20 at 21:45; Stop 10/06/20 at 21:44; Status DC Piperacillin Sod/ Tazobactam Sod (Zosyn Per Pharmacy) 1 each PRN DAILY PRN MC SEE COMMENTS; Start 10/05/20 at 21:45; Stop 10/06/20 at 14:03; Status DC Sodium Chloride 1,000 ml @ 125 mls/hr 1X ONCE IV Last administered on 10/06/20at 00:27; Start 10/05/20 at 22:00; Stop 10/06/20 at 05:59; Status DC Piperacillin Sod/ Tazobactam Sod 3.375 gm/Sodium Chloride 50 ml @ 100 mls/hr Q6HRS IV Last administered on 10/06/20at 05:35; Start 10/05/20 at 22:00; Stop 10/06/20 at 09:40; Status DC Ondansetron HCl (Zofran) 4 mg PRN Q6HRS PRN IVP NAUSEA/VOMITING 1ST CHOICE Last administered on 10/06/20at 12:51; Start 10/06/20 at 06:45 Al Hydroxide/Mg Hydroxide (Mylanta Plus Xs) 30 ml PRN Q3HRS PRN PO HEARTBURN / GAS; Start 10/06/20 at 06:45 Calcium Carbonate/ Glycine (Tums) 500 mg PRN Q3HRS PRN PO UPSET STOMACH; Start 10/06/20 at 06:45 Zolpidem Tartrate (Ambien) 5 mg PRN QHS PRN PO INSOMNIA, MAY REPEAT IN 1HR Last administered on 10/09/20at 22:52; Start 10/06/20 at 06:45 Acetaminophen (Tylenol) 650 mg PRN Q6HRS PRN PO Headaches, Temp > 101.5F; Start 10/06/20 at 06:45 Ibuprofen (Motrin) 400 mg PRN Q6HRS PRN PO MILD PAIN 1-3 Last administered on 10/07/20at 20:14; Start 10/06/20 at 06:45 Magnesium Hydroxide (Milk Of Magnesia) 2,400 mg PRN Q12HR PRN PO CONSTIPATION 3RD CHOICE; Start 10/06/20 at 06:45 Heparin Sodium (Porcine) (Heparin Sodium) 5,000 unit Q8HRS SQ Last administered on 10/10/20at 05:40; Start 10/06/20 at 07:00 Non-Formulary Medication (Buprenorphine Hcl ) 8 mg DAILY SL ; Start 10/06/20 at 09:00; Stop 10/07/20 at 13:52; Status DC Perflutren Protein Type A Microsphe (Optison) 0.66 mg 1X ONCE IV ; Start 10/06/20 at 08:45; Stop 10/06/20 at 08:46; Status DC Perflutren Protein Type A Microsphe (Optison) 0.66 mg STK-MED ONCE IV ; Start 10/06/20 at 08:43; Stop 10/06/20 at 08:43; Status DC Ceftriaxone Sodium (Rocephin) 2 gm Q24H IVP Last administered on 10/09/20at 12:45; Start 10/06/20 at 12:00 Nystatin (Mycostatin) 1 erika BID TP Last administered on 10/10/20at 08:30; Start 10/06/20 at 12:00 Perflutren Protein Type A Microsphe (Optison) 0.66 mg STK-MED ONCE IV ; Start 10/06/20 at 09:00; Stop 10/07/20 at 08:44; Status DC Acetaminophen/ Hydrocodone Bitart (Lortab 7.5/325) 1 tab PRN Q6HRS PRN PO M ODERATE PAIN Last administered on 10/07/20at 16:33; Start 10/07/20 at 09:00; Stop 10/08/20 at 18:16; Status DC Acetaminophen/ Hydrocodone Bitart (Lortab 10/325) 1 tab PRN Q6HRS PRN PO SEVERE PAIN 2ND CHOICE Last administered on 10/10/20at 05:56; Start 10/07/20 at 09:00 Acetaminophen/ Hydrocodone Bitart (Lortab 5/325) 1 tab PRN Q4HRS PRN PO MILD PAIN 1-3; Start 10/07/20 at 09:00; Stop 10/08/20 at 18:16; Status DC Lactobacillus Rhamnosus (Culturelle) 1 cap BID PO Last administered on 10/10/20at 08:30; Start 10/07/20 at 21:00 Fentanyl Citrate (Fentanyl 2ml Vial) 25 mcg PRN Q5MIN PRN IVP MILD PAIN 1-3; Start 10/08/20 at 08:30; Stop 10/09/20 at 08:29; Status DC Fentanyl Citrate (Fentanyl 2ml Vial) 50 mcg PRN Q5MIN PRN IVP MODERATE PAIN 4-6 Last administered on 10/08/20at 19:18; Start 10/08/20 at 08:30; Stop 10/09/20 at 08:29; Status DC Morphine Sulfate (Morphine Sulfate) 1 mg PRN Q10MIN PRN IVP SEVERE PAIN 7-10; Start 10/08/20 at 08:30; Stop 10/09/20 at 08:29; Status DC Ringer's Solution 1,000 ml @ 30 mls/hr Q24H IV ; Start 10/08/20 at 08:30; Stop 10/08/20 at 20:29; Status DC Hydromorphone HCl (Dilaudid) 0.5 mg PRN Q10MIN PRN IVP SEVERE PAIN 7-10, 2nd CHOICE; Start 10/08/20 at 08:30; Stop 10/08/20 at 18:16; Status DC Prochlorperazine Edisylate (Compazine) 5 mg PACU PRN PRN IVP NAUSEA, MRX1; Start 10/08/20 at 08:30; Stop 10/09/20 at 08:29; Status DC Fentanyl Citrate (Fentanyl 2ml Vial) 50 mcg PRN Q2HR PRN IVP MILD PAIN 1-3 Last administered on 10/08/20at 11:59; Start 10/08/20 at 10:15 Fentanyl Citrate (Fentanyl 2ml Vial) 75 mcg PRN Q2HR PRN IVP MODERATE PAIN; Start 10/08/20 at 10:15 Hydromorphone HCl (Dilaudid) 2 mg PRN Q4HRS PRN IVP SEVERE PAIN Last a dministered on 10/08/20at 13:54; Start 10/08/20 at 11:15 Docusate Sodium (Colace) 100 mg DAILY PO Last administered on 10/10/20at 08:30; Start 10/08/20 at 12:00 Polyethylene Glycol (miraLAX PACKET) 17 gm PRN DAILY PRN PO CONSTIPATION; Start 10/08/20 at 11:30 Bisacodyl (Dulcolax Tab) 10 mg PRN DAILY PRN PO CONSTIPATION, 2ND CHOICE; Start 10/08/20 at 11:30 Famotidine (Pepcid) 20 mg QHS PO Last administered on 10/09/20at 20:44; Start 10/08/20 at 21:00 Ondansetron HCl (Zofran) 4 mg STK-MED ONCE .ROUTE ; Start 10/08/20 at 16:28; Stop 10/08/20 at 16:28; Status DC Propofol (Diprivan) 200 mg STK-MED ONCE IV ; Start 10/08/20 at 16:28; Stop 10/08/20 at 16:28; Status DC Lidocaine HCl (Xylocaine-Mpf 1% 5ml Vial) 5 ml STK-MED ONCE .ROUTE ; Start 10/08/20 at 16:28; Stop 10/08/20 at 16:28; Status DC Fentanyl Citrate (Fentanyl 2ml Vial) 100 mcg STK-MED ONCE .ROUTE ; Start 10/08/20 at 16:28; Stop 10/08/20 at 16:28; Status DC Ketamine HCl (Ketamine) 50 mg STK-MED ONCE .ROUTE ; Start 10/08/20 at 17:14; Stop 10/08/20 at 17:14; Status DC Hydromorphone HCl (Dilaudid) 2 mg STK-MED ONCE .ROUTE ; Start 10/08/20 at 17:27; Stop 10/08/20 at 17:27; Status DC Thrombin 20,000 unit STK-MED ONCE TP Last administered on 10/08/20at 18:06; Start 10/08/20 at 18:04; Stop 10/08/20 at 18:04; Status DC Lorazepam (Ativan) 2 mg PRN Q6HRS PRN PO ANXIETY / AGITATION; Start 10/08/20 at 18:15 Lorazepam (Ativan Inj) 1 mg PRN Q4HRS PRN IVP ANXIETY / AGITATION; Start 10/08/20 at 18:15 Oxycodone/ Acetaminophen (Percocet 7.5/ 325) 1 tab PRN Q4HRS PRN PO MODERATE PAIN Last administered on 10/09/20at 09:16; Start 10/08/20 at 18:30 Oxycodone/ Acetaminophen (Percocet 10/325) 1 tab PRN Q4HRS PRN PO SEVERE PAIN 7-10 Last administered on 10/10/20at 08:30; Start 10/08/20 at 18:30 Naloxone HCl (Narcan) 0.4 mg PRN Q2MIN PRN IV SEE COMMENTS; Start 10/08/20 at 18:30 Ondansetron HCl (Zofran) 4 mg STK-MED ONCE .ROUTE ; Start 10/08/20 at 18:33; Stop 10/08/20 at 18:34; Status DC Fentanyl Citrate (Fentanyl 2ml Vial) 100 mcg STK-MED ONCE .ROUTE ; Start 10/08/20 at 18:58; Stop 10/08/20 at 18:59; Status DC Active Scripts Active Reported Buprenorphine Hcl 8 Mg Tab.subl 8 Mg SL DAILY 30 Days Vitals/I & O Vital Sign - Last 24 Hours 10/09/20 10/09/20 10/09/20 10/09/20 11:00 12:45 14:38 15:00 Temp 98.6 98.4 98.6 98.4 Pulse 92 90 Resp 18 18 B/P (MAP) 142/75 (97) 149/99 (116) Pulse Ox 95 95 O2 Delivery Room Air Room Air Room Air Room Air 10/09/20 10/09/20 10/09/20 10/09/20 16:28 17:40 19:25 20:00 Temp 98.8 98.8 Pulse 74 Resp 18 B/P (MAP) 139/88 (105) Pulse Ox 98 O2 Delivery Room Air Room Air Room Air Room Air 10/09/20 10/09/20 10/09/20 10/09/20 20:44 21:23 22:52 23:06 Temp 98.5 98.5 Pulse 90 Resp 18 B/P (MAP) 130/82 (98) Pulse Ox 95 O2 Delivery Room Air Room Air Room Air Room Air 10/09/20 10/10/20 10/10/20 10/10/20 23:22 03:41 05:56 06:25 Temp 98.6 98.6 Pulse 18 Resp 20 B/P (MAP) 143/100 (114) Pulse Ox 96 O2 Delivery Room Air Room Air Room Air Room Air 10/10/20 10/10/20 07:00 07:55 Temp 97.7 97.7 Pulse 18 Resp 20 B/P (MAP) 149/101 (117) Pulse Ox 97 O2 Delivery Room Air Room Air Intake and Output 10/09/20 10/09/20 10/10/20 15:00 23:00 07:00 Intake Total 480 ml Output Total 500 ml 450 ml Balance -500 ml 30 ml Justicifation of Admission Dx: Justifications for Admission: Justification of Admission Dx: Yes KANNAN CISNEROS MD Oct 10, 2020 10:47
[2020-10-10 11:00] VITALS: BP 132/86
--- NOTE | 2020-10-10 11:41 | NUR ---
SW following. Discussed with RN, pt has wound vac and IV abx - cultures pending. SW will continue to follow. SW will continue to follow.
[2020-10-10] MEDS: cefTRIAXone IV Push 2 GM VIAL. IVP SCH (11:42)
[2020-10-10 15:00] VITALS: BP 130/94
[2020-10-10] MEDS: HYDROmorphone 2 MG/ML VIAL IVP PRN (16:13)
--- NOTE | 2020-10-10 16:21 | NUR ---
Wound Care Wound Type/Assessment: Consult to place wound vac following I&D by Dr. Stephens of L lateral ankle abscess. Removed one piece of black foam from dressing placed in surgery. Per pt, the wound vac had been alarming since the evening before reporting a "blockage" which was unable to be resolved. Wound cleansed, pictured and measured. Wound base red and non-granular with exposed adipose, tendon, muscle, and sutures. Placed Kami collagen into wound base and one piece of black foam "rope." Good seal achieved. No other wounds noted on head to toe inspection. Treatment Recommendations/Plan: Continue wound vac Education provided: Pressure ulcer prevention and wound vac trouble shooting. Vac will alarm if: 1. battery is low. 2. Canister is full. 3. There is an air leak in the dressing 4. the air valve on the track pad is covered (blockage). Offloading surface/device: Pt is independent with turns Recommended Referrals/Tests: continue to follow plan of treatment as directed by surgeon Discharge Recommendations for dressings: As above
[2020-10-10 19:30] VITALS: BP 144/88
[2020-10-10] MEDS: FAMOTIDINE 20 MG TABLET. PO SCH (20:39)
[2020-10-10] MEDS: ZOLPIDEM 5 MG TABLET. PO PRN (22:37)
[2020-10-10 23:19] VITALS: BP 150/92
[2020-10-11 03:14] VITALS: BP 115/76
[2020-10-11] MEDS: HYDROmorphone 2 MG/ML VIAL IVP PRN (06:00)
[2020-10-11] MEDS: HEPARIN for SUB-Q USE 5,000 UNIT/ML VIAL. SQ SCH ×3 (06:08→21:04)
[2020-10-11 07:00] VITALS: BP 124/80
[2020-10-11] MEDS: LACTOBACILLUS RHAMNOSUS GG 1 CAPSULE. PO SCH ×2 (08:43→21:01)
[2020-10-11] MEDS: NYSTATIN 100,000 UNIT/GM TOPICAL CREAM 15GM TUBE. TP SCH ×2 (08:43→21:00)
[2020-10-11] MEDS: DOCUSATE SODIUM 100 MG CAPSULE. PO SCH (08:43)
[2020-10-11] MEDS: HYDROcodone/APAP 10/325 1 TAB TABLET PO PRN ×2 (08:43→17:03)
[2020-10-11 08:52] LABS: ALBUMIN 2.4 g/dL (3.4-5.0); DIRECT BILIRUBIN 1.5 mg/dL (0.0-0.2); TOTAL BILIRUBIN 2.1 mg/dL (0.2-1.0); TOTAL PROTEIN 7.4 g/dL (6.4-8.2)
--- NOTE | 2020-10-11 09:08 | PDOC ---
Infectious Disease Note Subjective Subjective Patient is feeling much better ROS ROS No nausea vomiting diarrhea chest pain shortness of breath Vital Sign Vital Signs Vital Signs Date Time Temp Pulse Resp B/P (MAP) Pulse Ox O2 Delivery O2 Flow Rate FiO2 10/11/20 08:43 Room Air 10/11/20 07:00 98.0 85 18 124/80 (95) 96 98.0 Physical Exam PHYSICAL EXAM GENERAL: Alert and oriented gentleman, not in distress. VITAL SIGNS: Stable HEENT: Both pupils are round and reacting. No conjunctival lesion, no lesion in the mouth. NECK: Supple, no JVP, no lymphadenopathy. LUNGS: Clear. HEART: S1, S2 regular. ABDOMEN: Soft, nontender, no organomegaly, no tenderness, rebound or guarding. EXTREMITIES: Right lower extremity is normal. Left lower extremity is swollen. There is redness all the way up into the thigh and there is tender lymphadenopathy in the left groin. There is some maceration between the toes. wound vac in place NEUROLOGIC: The patient is alert, awake and appropriate. No focal neurologic deficit. Labs Lab Laboratory Tests Test 10/11/20 07:40 Total Bilirubin 2.1 mg/dL (0.2-1.0) Direct Bilirubin 1.5 mg/dL (0.0-0.2) Aspartate Amino Transf (AST/SGOT) 150 U/L (15-37) Alanine Aminotransferase (ALT/SGPT) 71 U/L (16-63) Alkaline Phosphatase 116 U/L (46-116) Total Protein 7.4 g/dL (6.4-8.2) Albumin 2.4 g/dL (3.4-5.0) Micro Microbiology 10/05/20 Blood Culture - Preliminary, Resulted NO GROWTH AFTER 1 DAY Objective Assessment IMPRESSION: 1. Fever and chills. improved 2. Leukocytosis. Both are secondary to left lower extremity cellulitis. Ankle abscess s/p I and D 3. Left lower extremity cellulitis on top of chronic edema from prior trauma. 4. Tinea infection between the toes. 5. Alcoholic liver disease. 6. Asymptomatic cholelithiasis. Plan Plan of Care Continue antibiotics. Continue leg elevation. wound vac ALEJANDRO SHIPMAN MD Oct 11, 2020 09:08
--- NOTE | 2020-10-11 10:52 | PDOC ---
PROGRESS NOTES Date of Service: DATE: 10/11/20 TIME: 10:52 Chief Complaint Chief Complaint impression Acute cholecystitis Left lower extremity cellulitis Left inguinal lymphadenopathy Narcotic dependence Alcohol abuse Morbid obesity Severe malnutrition Plan: Continue antibiotics. leg elevation. Continue treatment with IV Rocephin, per ID Consultation placed to general surgery, GI, and ID Left inguinal lymphadenopathy seen on ultrasound likely reactive due to infectious process; recommend follow-up to ensure resolution. No evidence of DVT seen on ultrasound left lower extremity; will obtain echocardiogram. Resume home medications FEN - NPO PPX - Heparin FULL CODE Dispo - inpatient for above Patient names his (Ni Lee) as surrogate decision-maker History of Present Illness History of Present Illness Patient is a 35-year-old male with past medical history alcohol abuse, narcotic dependence, morbid obesity, who presents to the ED with complaints of left upper quadrant abdominal pain for the past week. He reports abdominal pain 7/10, with associated intermittent nausea and vomiting. Also notes left lower extremity s welling and pain for the past 2 days. He notes associated drainage from his left ankle, but is unsure if this is been purulent drainage. He does have a history of left lower extremity surgery requiring surgical fixation; states that this was complicated by MRSA infected hardware, which was subsequently removed. He reports regular heavy alcohol intake and takes daily Suboxone for history of narcotic dependence. Labs on admission showed WBC 14, platelets 119, sodium 132, CBG 114, AST 119, ALT 64, CRP 207.2, albumin 2.8, PT 16.1, INR 1.3. Abdominal ultrasound showed cholelithiasis, superimposed gallbladder distention and gallbladder wall thickening, suggestive of cholecystitis. He received broad-spectrum antibiotics and IV fluids. Will admit for further medical management. 10/07/2020: Patient seen and evaluated. He was febrile overnight, T-max 100.6 F. Leukocytosis improving 11. today. Per general surgery, he is a poor surgical candidate and not recommending any surgical interventions at this time. CT left lower extremity yesterday showed fluid collection favoring an abscess; appreciate general surgery input in regards to possible left ankle abscess. Per GI, elevated LFTs likely secondary to history of alcohol abuse, but hepatitis panel pending for thoroughness. Antibiotics have been changed to Rocephin with topical nystatin cream twice daily, per ID. Patient with complaints of uncontrolled pain that he agrees is due to his history of narcotic abuse. Will increase PO pain medications. 10/08/2020: Afebrile. Still with complaints of pain in his left lower extremity. Patient is requesting to speak with the landscape painter, and I informed him that we do not have one available at this hospital. He does have a severe narcotic dependency. He is scheduled to have surgery today. Will give IV pain medications and keep n.p.o. until time of surgery. Continue IV antibiotics, per ID. 10/11/2020: complex fluid collection within the soft tissues along the posterior lateral ankle at the level of the distal tibia and fibular metaphyses which extends cephalad into the distal calf soft tissues measuring 4.0 cm in maximum thickness and 10.0 cm in maximum length. surrounding cellulitis favors that the fluid collection represents an abscess rather than postoperative seroma. Cholelithiasis. There is superimposed gallbladder distention and gallbladder wall thickening. This may be due to intrinsic liver disease or cholecystitis. Afebrile. Still with complaints of pain in his left lower extremity. requesting to speak with the landscape painter, does have a severe narcotic dependency. Will give IV pain medications and keep n.p.o. until time of surgery. Continue IV antibiotics, per ID. S/p left ankle I&D 10-08 Alcohol overuse w/ elevated LFTs, thrombocytopenia, // hepatosplenomegaly plts 129K 29 MIN pt exam, chart review, > 50% of time spent with exam, chart review, pt c are coordination 10/10/2020: complex fluid collection within the soft tissues along the posterior lateral ankle at the level of the distal tibia and fibular metaphyses which extends cephalad into the distal calf soft tissues measuring 4.0 cm in maximum thickness and 10.0 cm in maximum length. surrounding cellulitis favors that the fluid collection represents an abscess rather than postoperative seroma. Cholelithiasis. There is superimposed gallbladder distention and gallbladder wall thickening. This may be due to intrinsic liver disease or cholecystitis. Afebrile. Still with complaints of pain in his left lower extremity. req uesting to speak with the landscape painter, does have a severe narcotic dependency. Will give IV pain medications and keep n.p.o. until time of surgery. Continue IV antibiotics, per ID. S/p left ankle I&D 10-08 Alcohol overuse w/ elevated LFTs, thrombocytopenia, // hepatosplenomegaly plts 129K 28 MIN pt exam, chart review, > 50% of time spent with exam, chart review, pt care coordination 10/09/2020: complex fluid collection within the soft tissues along the posterior lateral ankle at the level of the distal tibia and fibular metaphyses which extends cephalad into the distal calf soft tissues measuring 4.0 cm in maximum thickness and 10.0 cm in maximum length. surrounding cellulitis favors that the fluid collection represents an abscess rather than postoperative seroma. Cholelithiasis. There is superimposed gallbladder distention and gallbladder wall thickening. This may be due to intrinsic liver disease or cholecystitis. Afebrile. Still with complaints of pain in his left lower extremity. requesting to speak with the landscape painter, does have a severe narcotic dependency. Will give IV pain medications and keep n.p.o. until time of surgery. Continue IV antibiotics, per ID. S/p left ankle I&D 10-08 Alcohol overuse w/ elevated LFTs, thrombocytopenia, // hepatosplenomegaly plts 129K 38 MIN pt exam, chart review, > 50% of time spent with exam, chart review, pt care coordination Vitals Vitals Vital Signs Date Time Temp Pulse Resp B/P (MAP) Pulse Ox O2 Delivery O2 Flow Rate FiO2 10/11/20 09:56 Room Air 10/11/20 07:00 98.0 85 18 124/80 (95) 96 98.0 Physical Exam Physical Exam GENERAL: Alert and oriented gentleman, not in distress. VITAL SIGNS: Stable HEENT: Both pupils are round and reacting. No conjunctival lesion, no lesion in the mouth. NECK: Supple, no JVP, no lymphadenopathy. LUNGS: Clear. HEART: S1, S2 regular. ABDOMEN: Soft, nontender, no organomegaly, no tenderness, rebound or guarding. EXTREMITIES: Right lower extremity is normal. Left lower extremity is swollen. There is redness all the way up into the thigh and there is tender lymphadenopathy in the left groin. There is some maceration between the toes. wound vac in place NEUROLOGIC: The patient is alert, awake and appropriate. No focal neurologic deficit. General: Alert, Oriented X3, Cooperative, No acute distress Heart: Regular rate, Normal S1, Normal S2 Lungs: Clear Abdomen: Normal bowel sounds, Soft, No tenderness Extremities: Other (3+ edema left lower extremity) Skin: Other (left LE swollen) Labs LABS Laboratory Tests Test 10/11/20 07:40 Total Bilirubin 2.1 mg/dL (0.2-1.0) Direct Bilirubin 1.5 mg/dL (0.0-0.2) Aspartate Amino Transf (AST/SGOT) 150 U/L (15-37) Alanine Aminotransferase (ALT/SGPT) 71 U/L (16-63) Alkaline Phosphatase 116 U/L (46-116) Total Protein 7.4 g/dL (6.4-8.2) Albumin 2.4 g/dL (3.4-5.0) Assessment and Plan Assessmemt and Plan Problems Medical Problems: (1) Cholecystitis Status: Acute (2) Elevated liver enzymes Status: Acute (3) Hyperbilirubinemia Status: Acute (4) Hyponatremia Status: Acute (5) Inguinal lymphadenopathy Status: Acute (6) Jaundice Status: Acute Comment Review of Relevant I have reviewed the following items chevy (where applicable) has been applied. Labs Laboratory Tests Test 10/10/20 07:55 10/11/20 07:40 White Blood Count 7.3 x10^3/uL (4.0-11.0) Red Blood Count 3.41 x10^6/uL (4.30-5.70) Hemoglobin 11.3 g/dL (13.0-17.5) Hematocrit 33.0 % (39.0-53.0) Mean Corpuscular Volume 97 fL (79-100) Mean Corpuscular Hemoglobin 33 pg (25-35) Mean Corpuscular Hemoglobin Concent 34 g/dL (31-37) Red Cell Distribution Width 14.7 % (11.5-14.5) Platelet Count 162 x10^3/uL (140-400) Neutrophils (%) (Auto) 53 % (31-73) Lymphocytes (%) (Auto) 33 % (24-48) Monocytes (%) (Auto) 12 % (0-9) Eosinophils (%) (Auto) 1 % (0-3) Basophils (%) (Auto) 1 % (0-3) Neutrophils # (Auto) 3.9 x10^3/uL (1.8-7.7) Lymphocytes # (Auto) 2.4 x10^3/uL (1.0-4.8) Monocytes # (Auto) 0.9 x10^3/uL (0.0-1.1) Eosinophils # (Auto) 0.1 x10^3/uL (0.0-0.7) Basophils # (Auto) 0.1 x10^3/uL (0.0-0.2) Sodium Level 138 mmol/L (136-145) Potassium Level 3.8 mmol/L (3.5-5.1) Chloride Level 102 mmol/L (98-107) Carbon Dioxide Level 29 mmol/L (21-32) Anion Gap 7 (6-14) Blood Urea Nitrogen 7 mg/dL (8-26) Creatinine 0.7 mg/dL (0.7-1.3) Estimated GFR (Cockcroft-Gault) 155.3 Glucose Level 98 mg/dL (70-99) Calcium Level 8.6 mg/dL (8.5-10.1) Iron Level 49 ug/dL (65-175) Total Iron Binding Capacity 190 ug/dL (250-450) Iron Saturation 26 % (15-34) Vitamin B12 Level 1056 pg/mL (247-911) Total Bilirubin 2.1 mg/dL (0.2-1.0) Direct Bilirubin 1.5 mg/dL (0.0-0.2) Aspartate Amino Transf (AST/SGOT) 150 U/L (15-37) Alanine Aminotransferase (ALT/SGPT) 71 U/L (16-63) Alkaline Phosphatase 116 U/L (46-116) Total Protein 7.4 g/dL (6.4-8.2) Albumin 2.4 g/dL (3.4-5.0) Laboratory Tests Test 10/11/20 07:40 Total Bilirubin 2.1 mg/dL (0.2-1.0) Direct Bilirubin 1.5 mg/dL (0.0-0.2) Aspartate Amino Transf (AST/SGOT) 150 U/L (15-37) Alanine Aminotransferase (ALT/SGPT) 71 U/L (16-63) Alkaline Phosphatase 116 U/L (46-116) Total Protein 7.4 g/dL (6.4-8.2) Albumin 2.4 g/dL (3.4-5.0) Microbiology 10/08/20 Gram Stain - Final, Resulted 10/08/20 Aerobic and Anaerobic Culture - Preliminary, Resulted 10/06/20 Blood Culture - Final, Complete NO GROWTH AFTER 5 DAYS 10/06/20 Urine Culture - Final, Complete Medications Current Medications Fentanyl Citrate (Fentanyl 2ml Vial) 75 mcg 1X ONCE IVP Last administered on 10/05/20at 21:00; Start 10/05/20 at 19:00; Stop 10/05/20 at 19:01; Status DC Sodium Chloride 1,000 ml @ 1,000 mls/hr 1X ONCE IV Last administered on 10/05/20at 21:00; Start 10/05/20 at 18:30; Stop 10/05/20 at 19:29; Status DC Ondansetron HCl (Zofran) 4 mg PRN Q8HRS PRN IVP NAUSEA/VOMITING 1ST CHOICE; Start 10/05/20 at 21:45; Stop 10/06/20 at 06:49; Status DC Morphine Sulfate (Morphine Sulfate) 4 mg PRN Q2HR PRN IVP SEVERE PAIN 7-10 Last administered on 10/06/20at 15:11; Start 10/05/20 at 21:45; Stop 10/06/20 at 21:44; Status DC Piperacillin Sod/ Tazobactam Sod (Zosyn Per Pharmacy) 1 each PRN DAILY PRN MC SEE COMMENTS; Start 10/05/20 at 21:45; Stop 10/06/20 at 14:03; Status DC Sodium Chloride 1,000 ml @ 125 mls/hr 1X ONCE IV Last administered on 10/06/20at 00:27; Start 10/05/20 at 22:00; Stop 10/06/20 at 05:59; Status DC Piperacillin Sod/ Tazobactam Sod 3.375 gm/Sodium Chloride 50 ml @ 100 mls/hr Q6HRS IV Last administered on 10/06/20at 05:35; Start 10/05/20 at 22:00; Stop 10/06/20 at 09:40; Status DC Ondansetron HCl (Zofran) 4 mg PRN Q6HRS PRN IVP NAUSEA/VOMITING 1ST CHOICE Last administered on 10/06/20at 12:51; Start 10/06/20 at 06:45 Al Hydroxide/Mg Hydroxide (Mylanta Plus Xs) 30 ml PRN Q3HRS PRN PO HEARTBURN / GAS; Start 10/06/20 at 06:45 Calcium Carbonate/ Glycine (Tums) 500 mg PRN Q3HRS PRN PO UPSET STOMACH; Start 10/06/20 at 06:45 Zolpidem Tartrate (Ambien) 5 mg PRN QHS PRN PO INSOMNIA, MAY REPEAT IN 1HR Last administered on 10/10/20at 22:37; Start 10/06/20 at 06:45 Acetaminophen (Tylenol) 650 mg PRN Q6HRS PRN PO Headaches, Temp > 101.5F; Start 10/06/20 at 06:45 Ibuprofen (Motrin) 400 mg PRN Q6HRS PRN PO MILD PAIN 1-3 Last administered on 10/07/20at 20:14; Start 10/06/20 at 06:45 Magnesium Hydroxide (Milk Of Magnesia) 2,400 mg PRN Q12HR PRN PO CONSTIPATION 3RD CHOICE; Start 10/06/20 at 06:45 Heparin Sodium (Porcine) (Heparin Sodium) 5,000 unit Q8HRS SQ Last administered on 10/11/20at 06:08; Start 10/06/20 at 07:00 Non-Formulary Medication (Buprenorphine Hcl ) 8 mg DAILY SL ; Start 10/06/20 at 09:00; Stop 10/07/20 at 13:52; Status DC Perflutren Protein Type A Microsphe (Optison) 0.66 mg 1X ONCE IV ; Start 10/06/20 at 08:45; Stop 10/06/20 at 08:46; Status DC Perflutren Protein Type A Microsphe (Optison) 0.66 mg STK-MED ONCE IV ; Start 10/06/20 at 08:43; Stop 10/06/20 at 08:43; Status DC Ceftriaxone Sodium (Rocephin) 2 gm Q24H IVP Last administered on 10/10/20at 11:42; Start 10/06/20 at 12:00 Nystatin (Mycostatin) 1 erika BID TP Last administered on 10/10/20at 08:30; Start 10/06/20 at 12:00 Perflutren Protein Type A Microsphe (Optison) 0.66 mg STK-MED ONCE IV ; Start 10/06/20 at 09:00; Stop 10/07/20 at 08:44; Status DC Acetaminophen/ Hydrocodone Bitart (Lortab 7.5/325) 1 tab PRN Q6HRS PRN PO MODERATE PAIN Last administered on 10/07/20at 16:33; Start 10/07/20 at 09:00; Stop 10/08/20 at 18:16; Status DC Acetaminophen/ Hydrocodone Bitart (Lortab 10/325) 1 tab PRN Q6HRS PRN PO SEVERE PAIN 2ND CHOICE Last administered on 10/11/20at 08:43; Start 10/07/20 at 09:00 Acetaminophen/ Hydrocodone Bitart (Lortab 5/325) 1 tab PRN Q4HRS PRN PO MILD PAIN 1-3; Start 10/07/20 at 09:00; Stop 10/08/20 at 18:16; Status DC Lactobacillus Rhamnosus (Culturelle) 1 cap BID PO Last administered on 10/11/20at 08:43; Start 10/07/20 at 21:00 Fentanyl Citrate (Fentanyl 2ml Vial) 25 mcg PRN Q5MIN PRN IVP MILD PAIN 1-3; Start 10/08/20 at 08:30; Stop 10/09/20 at 08:29; Status DC Fentanyl Citrate (Fentanyl 2ml Vial) 50 mcg PRN Q5MIN PRN IVP MODERATE PAIN 4-6 Last administered on 10/08/20at 19:18; Start 10/08/20 at 08:30; Stop 10/09/20 at 08:29; Status DC Morphine Sulfate (Morphine Sulfate) 1 mg PRN Q10MIN PRN IVP SEVERE PAIN 7-10; Start 10/08/20 at 08:30; Stop 10/09/20 at 08:29; Status DC Ringer's Solution 1,000 ml @ 30 mls/hr Q24H IV ; Start 10/08/20 at 08:30; Stop 10/08/20 at 20:29; Status DC Hydromorphone HCl (Dilaudid) 0.5 mg PRN Q10MIN PRN IVP SEVERE PAIN 7-10, 2nd CHOICE; Start 10/08/20 at 08:30; Stop 10/08/20 at 18:16; Status DC Prochlorperazine Edisylate (Compazine) 5 mg PACU PRN PRN IVP NAUSEA, MRX1; Start 10/08/20 at 08:30; Stop 10/09/20 at 08:29; Status DC Fentanyl Citrate (Fentanyl 2ml Vial) 50 mcg PRN Q2HR PRN IVP MILD PAIN 1-3 Last administered on 10/08/20at 11:59; Start 10/08/20 at 10:15 Fentanyl Citrate (Fentanyl 2ml Vial) 75 mcg PRN Q2HR PRN IVP MODERATE PAIN; Start 10/08/20 at 10:15 Hydromorphone HCl (Dilaudid) 2 mg PRN Q4HRS PRN IVP SEVERE PAIN Last administered on 10/11/20at 06:00; Start 10/08/20 at 11:15 Docusate Sodium (Colace) 100 mg DAILY PO Last administered on 10/11/20at 08:43; Start 10/08/20 at 12:00 Polyethylene Glycol (miraLAX PACKET) 17 gm PRN DAILY PRN PO CONSTIPATION; Start 10/08/20 at 11:30 Bisacodyl (Dulcolax Tab) 10 mg PRN DAILY PRN PO CONSTIPATION, 2ND CHOICE; Start 10/08/20 at 11:30 Famotidine (Pepcid) 20 mg QHS PO Last administered on 10/10/20at 20:39; Start 10/08/20 at 21:00 Ondansetron HCl (Zofran) 4 mg STK-MED ONCE .ROUTE ; Start 10/08/20 at 16:28; Stop 10/08/20 at 16:28; Status DC Propofol (Diprivan) 200 mg STK-MED ONCE IV ; Start 10/08/20 at 16:28; Stop 10/08/20 at 16:28; Status DC Lidocaine HCl (Xylocaine-Mpf 1% 5ml Vial) 5 ml STK-MED ONCE .ROUTE ; Start 10/08/20 at 16:28; Stop 10/08/20 at 16:28; Status DC Fentanyl Citrate (Fentanyl 2ml Vial) 100 mcg STK-MED ONCE .ROUTE ; Start 10/08/20 at 16:28; Stop 10/08/20 at 16:28; Status DC Ketamine HCl (Ketamine) 50 mg STK-MED ONCE .ROUTE ; Start 10/08/20 at 17:14; Stop 10/08/20 at 17:14; Status DC Hydromorphone HCl (Dilaudid) 2 mg STK-MED ONCE .ROUTE ; Start 10/08/20 at 17:27; Stop 10/08/20 at 17:27; Status DC Thrombin 20,000 unit STK-MED ONCE TP Last administered on 10/08/20at 18:06; Start 10/08/20 at 18:04; Stop 10/08/20 at 18:04; Status DC Lorazepam (Ativan) 2 mg PRN Q6HRS PRN PO ANXIETY / AGITATION; Start 10/08/20 at 18:15 Lorazepam (Ativan Inj) 1 mg PRN Q4HRS PRN IVP ANXIETY / AGITATION; Start 10/08/20 at 18:15 Oxycodone/ Acetaminophen (Percocet 7.5/ 325) 1 tab PRN Q4HRS PRN PO MODERATE PAIN Last administered on 10/09/20at 09:16; Start 10/08/20 at 18:30 Oxycodone/ Acetaminophen (Percocet 10/325) 1 tab PRN Q4HRS PRN PO SEVERE PAIN 7-10 Last administered on 10/10/20at 08:30; Start 10/08/20 at 18:30 Naloxone HCl (Narcan) 0.4 mg PRN Q2MIN PRN IV SEE COMMENTS; Start 10/08/20 at 18:30 Ondansetron HCl (Zofran) 4 mg STK-MED ONCE .ROUTE ; Start 10/08/20 at 18:33; Stop 10/08/20 at 18:34; Status DC Fentanyl Citrate (Fentanyl 2ml Vial) 100 mcg STK-MED ONCE .ROUTE ; Start 10/08/20 at 18:58; Stop 10/08/20 at 18:59; Status DC Active Scripts Active Reported Buprenorphine Hcl 8 Mg Tab.subl 8 Mg SL DAILY 30 Days Vitals/I & O Vital Sign - Last 24 Hours 10/10/20 10/10/20 10/10/20 10/10/20 11:00 15:00 19:30 19:50 Temp 98.4 98.5 98.7 98.4 98.5 98.7 Pulse 86 89 92 Resp 16 16 18 B/P (MAP) 132/86 (101) 130/94 (106) 144/88 (106) Pulse Ox 95 96 95 O2 Delivery Room Air Room Air Room Air Room Air 10/10/20 10/10/20 10/10/20 10/11/20 20:40 21:12 23:19 03:14 Temp 98.3 98.6 98.3 98.6 Pulse 93 85 Resp 18 18 B/P (MAP) 150/92 (111) 115/76 (89) Pulse Ox 95 96 O2 Delivery Room Air Room Air Room Air Room Air 10/11/20 10/11/20 10/11/20 10/11/20 06:00 06:30 07:00 07:40 Temp 98.0 98.0 Pulse 85 Resp 18 B/P (MAP) 124/80 (95) Pulse Ox 96 O2 Delivery Room Air Room Air Room Air Room Air 10/11/20 10/11/20 08:43 09:56 O2 Delivery Room Air Room Air Intake and Output 10/10/20 10/10/20 10/11/20 15:00 23:00 07:00 Intake Total 440 ml 220 ml 480 ml Output Total 700 ml Balance 440 ml 220 ml -220 ml Justicifation of Admission Dx: Justifications for Admission: Justification of Admission Dx: Yes KANNAN CISNEROS MD Oct 11, 2020 10:52
[2020-10-11 11:00] VITALS: BP 122/80
[2020-10-11] MEDS: oxyCODONE/APAP 10/325 1 TAB TABLET PO PRN (12:32)
[2020-10-11] MEDS: cefTRIAXone IV Push 2 GM VIAL. IVP SCH (12:32)
[2020-10-11 15:00] VITALS: BP 159/101
[2020-10-11 19:00] VITALS: BP 139/83
[2020-10-11] MEDS: ZOLPIDEM 5 MG TABLET. PO PRN (21:01)
[2020-10-11] MEDS: FAMOTIDINE 20 MG TABLET. PO SCH (21:01)
[2020-10-11 23:00] VITALS: BP 136/74
[2020-10-12] MEDS: HYDROcodone/APAP 10/325 1 TAB TABLET PO PRN ×3 (00:39→16:22)
[2020-10-12 03:00] VITALS: BP 113/74
[2020-10-12] MEDS: HEPARIN for SUB-Q USE 5,000 UNIT/ML VIAL. SQ SCH ×3 (06:00→20:57)
--- NOTE | 2020-10-12 06:35 | NUR ---
Patient overnight walked to the bathroom forgetting wound vac was attached to left ankle. The wound vac became dislodged and detached from the patient. This RN unpacked foam from wound site, cleansed the wound site and then packed wound with sterile soaked 4x4 guaze, 2 abd pads and wrapped with kerlix and coband. Patient room cleaned and bed changed due to small amount of blood trail to bathroom. This RN then paged Dr. Stephens's office at [id number] hours, awaiting call back at this time.
[2020-10-12 07:00] VITALS: BP 152/96
--- NOTE | 2020-10-12 07:02 | PDOC ---
[facility] PROGRESS NOTE Date of Service DOS: DATE: 10/12/20 TIME: 06:58 Chief Complaint Chief Complaint impression Acute cholecystitis Left lower extremity cellulitis Left inguinal lymphadenopathy Narcotic dependence Alcohol abuse Morbid obesity Severe malnutrition Plan: Continue antibiotics. leg elevation. Continue treatment with IV Rocephin, per ID Consultation placed to general surgery, GI, and ID Left inguinal lymphadenopathy seen on ultrasound likely reactive due to infectious process; recommend follow-up to ensure resolution. No evidence of DVT seen on ultrasound left lower extremity; will obtain echocardiogram. Resume home medications FEN - NPO PPX - Heparin FULL CODE Dispo - inpatient for above Patient names his (Ni Lee) as surrogate decision-maker History of Present Illness History of Present Illness Patient is a 35-year-old male with past medical history alcohol abuse, narcotic dependence, morbid obesity, who presents to the ED with complaints of left upper quadrant abdominal pain for the past week. He reports abdominal pain 7/10, with associated intermittent nausea and vomiting. Also notes left lower extremity swelling and pain for the past 2 days. He notes associated drainage from his left ankle, but is unsure if this is been purulent drainage. He does have a history of left lower extremity surgery requiring surgical fixation; states that this was complicated by MRSA infected hardware, which was subsequently removed. He reports regular heavy alcohol intake and takes daily Suboxone for history of narcotic dependence. Labs on admission showed WBC 14, platelets 119, sodium 132, CBG 114, AST 119, ALT 64, CRP 207.2, albumin 2.8, PT 16.1, INR 1.3. Abdominal ultrasound showed cholelithiasis, superimposed gallbladder distention and gallbladder wall thickening, suggestive of cholecystitis. He received broad-spectrum antibiotics and IV fluids. Will admit for further medical management. 10/12/2020: Afebrile. Wound VAC became dislodged overnight. Wound was unpacked, clean, and packed again with sterile gauze by RN. States he is able to ambulate unassisted, denies need for PT. Continue leg elevation and IV antibiotics. Discussed with Dr. Allison, had a look at the foot with wound VAC removed, and wound looks clean. Patient may discharge tomorrow on oral antibiotics. 10/11/2020: complex fluid collection within the soft tissues along the posterior lateral ankle at the level of the distal tibia and fibular metaphyses which extends cephalad into the distal calf soft tissues measuring 4.0 cm in maximum thickness and 10.0 cm in maximum length. surrounding cellulitis favors that the fluid collection represents an abscess rather than postoperative seroma. Cholelithiasis. There is superimposed gallbladder distention and gallbladder wall thickening. This may be due to intrinsic liver disease or cholecystitis. Afebrile. Still with complaints of pain in his left lower extremity. requesting to speak with the auto body painter, does have a severe narcotic dependency. Will give IV pain medications and keep n.p.o. until time of surgery. Continue IV antibiotics, per ID. S/p left ankle I&D 10-08 Alcohol overuse w/ elevated LFTs, thrombocytopenia, // hepatosplenomegaly plts 129K 29 MIN pt exam, chart review, > 50% of time spent with exam, chart review, pt care coordination 10/10/2020: complex fluid collection within the soft tissues along the posterior lateral ankle at the level of the distal tibia and fibular metaphyses which extends cephalad into the distal calf soft tissues measuring 4.0 cm in maximum thickness and 10.0 cm in maximum length. surrounding cellulitis favors that the fluid collection represents an abscess rather than postoperative seroma. Cholelithiasis. There is superimposed gallbladder distention and gallbladder wall thickening. This may be due to intrinsic liver disease or cholecystitis. Afebrile. Still with complaints of pain in his left lower extremity. requesting to speak with the auto body painter, does have a severe narcotic dependency. Will give IV pain medications and keep n.p.o. until time of surgery. Continue IV antibiotics, per ID. S/p left ankle I&D 10-08 Alcohol overuse w/ elevated LFTs, thrombocytopenia, // hepatosplenomegaly plts 129K 28 MIN pt exam, chart review, > 50% of time spent with exam, chart review, pt care coordination 10/09/2020: complex fluid collection within the soft tissues along the posterior lateral ankle at the level of the distal tibia and fibular metaphyses which extends cephalad into the distal calf soft tissues measuring 4.0 cm in maximum thickness and 10.0 cm in maximum length. surrounding cellulitis favors that the fluid collection represents an abscess rather than postoperative seroma. Cholelithiasis. There is superimposed gallbladder distention and gallbladder wall thickening. This may be due to intrinsic liver disease or cholecystitis. Afebrile. Still with complaints of pain in his left lower extremity. requesting to speak with the auto body painter, does have a severe narcotic dependency. Will give IV pain medications and keep n.p.o. until time of surgery. Continue IV antibiotics, per ID. S/p left ankle I&D 10-08 Alcohol overuse w/ elevated LFTs, thrombocytopenia, // hepatosplenomegaly plts 129K 38 MIN pt exam, chart review, > 50% of time spent with exam, chart review, pt care coordination 10/08/2020: Afebrile. Still with complaints of pain in his left lower extremity. Patient is requesting to speak with the auto body painter, and I informed him that we do not have one available at this hospital. He does have a severe narcotic dependency. He is scheduled to have surgery today. Will give IV pain medications and keep n.p.o. until time of surgery. Continue IV antibiotics, per ID. 10/07/2020: Patient seen and evaluated. He was febrile overnight, T-max 100.6 F. Leukocytosis improving 11. today. Per general surgery, he is a poor surgical candidate and not recommending any surgical interventions at this time. CT left lower extremity yesterday showed fluid collection favoring an abscess; appreciate general surgery input in regards to possible left ankle abscess. Per GI, elevated LFTs likely secondary to history of alcohol abuse, but hepatitis panel pending for thoroughness. Antibiotics have been changed to Rocephin with topical nystatin cream twice daily, per ID. Patient with complaints of uncontrolled pain that he agrees is due to his history of narcotic abuse. Will increase PO pain medications. Vitals/I&O Vitals/I&O: Vital Signs Date Time Temp Pulse Resp B/P (MAP) Pulse Ox O2 Delivery O2 Flow Rate FiO2 10/12/20 03:00 98.4 101 16 113/74 (87) 94 Room Air 98.4 I & O 10/11/20 10/11/20 10/12/20 15:00 23:00 07:00 Intake Total 320 ml 200 ml 0 ml Output Total 300 ml Balance 320 ml -100 ml 0 ml Physical Exam General: Alert, Oriented X3, Cooperative, No acute distress Heart: Regular rate, Normal S1, Normal S2 Lungs: Clear Abdomen: Normal bowel sounds, Soft, No tenderness Extremities: Other (3+ edema left lower extremity) Skin: Other (left LE swollen) Labs Labs: Laboratory Tests Test 10/11/20 07:40 Total Bilirubin 2.1 mg/dL (0.2-1.0) Direct Bilirubin 1.5 mg/dL (0.0-0.2) Aspartate Amino Transf (AST/SGOT) 150 U/L (15-37) Alanine Aminotransferase (ALT/SGPT) 71 U/L (16-63) Alkaline Phosphatase 116 U/L (46-116) Total Protein 7.4 g/dL (6.4-8.2) Albumin 2.4 g/dL (3.4-5.0) Assessment and Plan Assessmemt and Plan Problems Medical Problems: (1) Cholecystitis Status: Acute (2) Elevated liver enzymes Status: Acute (3) Hyperbilirubinemia Status: Acute (4) Hyponatremia Status: Acute (5) Inguinal lymphadenopathy Status: Acute (6) Jaundice Status: Acute Comment Review of Relevant I have reviewed the following items chevy (where applicable) has been applied. Justifications for Admission Other Justification ROSIE TODD MD Oct 12, 2020 07:02
[2020-10-12 07:59] LABS: BASO % 1 % (0-3); EOS % 1 % (0-3); HEMATOCRIT 32.5 % (39.0-53.0); HEMOGLOBIN 11.6 g/dL (13.0-17.5); LYMPH # 1.9 x10^3/uL (1.0-4.8); LYMPH % 29 % (24-48); MEAN CORPUSCULAR HEMOGLOBIN 35 pg (25-35); MEAN CORPUSCULAR HGB CONC 36 g/dL (31-37); MEAN CORPUSCULAR VOLUME 97 fL (79-100); MONO # 0.7 x10^3/uL (0.0-1.1); MONO % 10 % (0-9); NEUT % 60 % (31-73); PLATELET COUNT 164 x10^3/uL (140-400); RED BLOOD COUNT 3.35 x10^6/uL (4.30-5.70); RED CELL DISTRIBUTION WIDTH 14.8 % (11.5-14.5); WHITE BLOOD COUNT 6.6 x10^3/uL (4.0-11.0)
[2020-10-12 08:18] LABS: ALBUMIN 2.6 g/dL (3.4-5.0); ALBUMIN/GLOBULIN RATIO 0.5 (1.0-1.7); CREATININE 0.8 mg/dL (0.7-1.3); GFR 133.1; POTASSIUM 4.1 mmol/L (3.5-5.1); TOTAL BILIRUBIN 1.8 mg/dL (0.2-1.0); TOTAL PROTEIN 7.9 g/dL (6.4-8.2)
[2020-10-12] MEDS: NYSTATIN 100,000 UNIT/GM TOPICAL CREAM 15GM TUBE. TP SCH ×2 (09:00→20:58)
--- NOTE | 2020-10-12 09:22 | PDOC ---
Infectious Disease Note Subjective Subjective Patient is feeling much better ROS ROS No nausea vomiting diarrhea Vital Sign Vital Signs Vital Signs Date Time Temp Pulse Resp B/P (MAP) Pulse Ox O2 Delivery O2 Flow Rate FiO2 10/12/20 07:00 98.0 101 18 152/96 (114) 96 Room Air 98.0 Physical Exam PHYSICAL EXAM GENERAL: Alert and oriented gentleman, not in distress. VITAL SIGNS: Stable HEENT: Both pupils are round and reacting. No conjunctival lesion, no lesion in the mouth. NECK: Supple, no JVP, no lymphadenopathy. LUNGS: Clear. HEART: S1, S2 regular. ABDOMEN: Soft, nontender, no organomegaly, no tenderness, rebound or guarding. EXTREMITIES: Right lower extremity is normal. Left lower extremity is swollen. There is redness all the way up into the thigh and there is tender ,,, posterior ankle wound seen large wound bed healthy granulation tissue no tendon or bone exposed lymphadenopathy in the left groin. There is some maceration between the toes. wound vac in place NEUROLOGIC: The patient is alert, awake and appropriate. No focal neurologic deficit. Labs Lab Laboratory Tests Test 10/12/20 07:30 White Blood Count 6.6 x10^3/uL (4.0-11.0) Red Blood Count 3.35 x10^6/uL (4.30-5.70) Hemoglobin 11.6 g/dL (13.0-17.5) Hematocrit 32.5 % (39.0-53.0) Mean Corpuscular Volume 97 fL (79-100) Mean Corpuscular Hemoglobin 35 pg (25-35) Mean Corpuscular Hemoglobin Concent 36 g/dL (31-37) Red Cell Distribution Width 14.8 % (11.5-14.5) Platelet Count 164 x10^3/uL (140-400) Neutrophils (%) (Auto) 60 % (31-73) Lymphocytes (%) (Auto) 29 % (24-48) Monocytes (%) (Auto) 10 % (0-9) Eosinophils (%) (Auto) 1 % (0-3) Basophils (%) (Auto) 1 % (0-3) Neutrophils # (Auto) 4.0 x10^3/uL (1.8-7.7) Lymphocytes # (Auto) 1.9 x10^3/uL (1.0-4.8) Monocytes # (Auto) 0.7 x10^3/uL (0.0-1.1) Eosinophils # (Auto) 0.0 x10^3/uL (0.0-0.7) Basophils # (Auto) 0.0 x10^3/uL (0.0-0.2) Sodium Level 142 mmol/L (136-145) Potassium Level 4.1 mmol/L (3.5-5.1) Chloride Level 106 mmol/L (98-107) Carbon Dioxide Level 30 mmol/L (21-32) Anion Gap 6 (6-14) Blood Urea Nitrogen 5 mg/dL (8-26) Creatinine 0.8 mg/dL (0.7-1.3) Estimated GFR (Cockcroft-Gault) 133.1 BUN/Creatinine Ratio 6 (6-20) Glucose Level 98 mg/dL (70-99) Calcium Level 9.0 mg/dL (8.5-10.1) Total Bilirubin 1.8 mg/dL (0.2-1.0) Aspartate Amino Transf (AST/SGOT) 166 U/L (15-37) Alanine Aminotransferase (ALT/SGPT) 82 U/L (16-63) Alkaline Phosphatase 109 U/L (46-116) Total Protein 7.9 g/dL (6.4-8.2) Albumin 2.6 g/dL (3.4-5.0) Albumin/Globulin Ratio 0.5 (1.0-1.7) Micro Culture is negative Objective Assessment IMPRESSION: 1. Fever and chills. improved 2. Leukocytosis. Both are secondary to left lower extremity cellulitis. Ankle abscess s/p I and D 3. Left lower extremity cellulitis on top of chronic edema from prior trauma. 4. Tinea infection between the toes. 5. Alcoholic liver disease. 6. Asymptomatic cholelithiasis. Plan Plan of Care Continue antibiotics. Continue leg elevation. wound vac ALEJANDRO SHIPMAN MD Oct 12, 2020 09:22
[2020-10-12] MEDS: LACTOBACILLUS RHAMNOSUS GG 1 CAPSULE. PO SCH ×2 (09:23→20:58)
[2020-10-12] MEDS: DOCUSATE SODIUM 100 MG CAPSULE. PO SCH (09:23)
[2020-10-12 11:00] VITALS: BP 125/81
[2020-10-12] MEDS: oxyCODONE/APAP 10/325 1 TAB TABLET PO PRN ×2 (12:09→17:53)
[2020-10-12] MEDS: cefTRIAXone IV Push 2 GM VIAL. IVP SCH ×2 (12:09→14:27)
[2020-10-12 15:00] VITALS: BP 141/91
[2020-10-12 19:00] VITALS: BP 121/81
[2020-10-12] MEDS: ZOLPIDEM 5 MG TABLET. PO PRN (20:58)
[2020-10-12] MEDS: FAMOTIDINE 20 MG TABLET. PO SCH (20:58)
[2020-10-12 23:00] VITALS: BP 119/79
[2020-10-13 03:00] VITALS: BP 122/77
[2020-10-13 05:18] LABS: BASO % 1 % (0-3); EOS # 0.1 x10^3/uL (0.0-0.7); EOS % 1 % (0-3); HEMATOCRIT 33.2 % (39.0-53.0); HEMOGLOBIN 11.3 g/dL (13.0-17.5); LYMPH # 2.7 x10^3/uL (1.0-4.8); LYMPH % 37 % (24-48); MEAN CORPUSCULAR HEMOGLOBIN 33 pg (25-35); MEAN CORPUSCULAR HGB CONC 34 g/dL (31-37); MEAN CORPUSCULAR VOLUME 98 fL (79-100); MONO # 0.8 x10^3/uL (0.0-1.1); MONO % 11 % (0-9); NEUT # 3.7 x10^3/uL (1.8-7.7); NEUT % 50 % (31-73); PLATELET COUNT 153 x10^3/uL (140-400); RED CELL DISTRIBUTION WIDTH 15.5 % (11.5-14.5); WHITE BLOOD COUNT 7.3 x10^3/uL (4.0-11.0)
[2020-10-13 05:28] LABS: C-REACTIVE PROTEIN 28.5 mg/L (0-3.3); CALCIUM 9.1 mg/dL (8.5-10.1); CREATININE 0.7 mg/dL (0.7-1.3); GFR 155.3
[2020-10-13] MEDS: HEPARIN for SUB-Q USE 5,000 UNIT/ML VIAL. SQ SCH ×3 (05:47→22:17)
[2020-10-13 07:00] VITALS: BP 123/79
[2020-10-13] MEDS: LACTOBACILLUS RHAMNOSUS GG 1 CAPSULE. PO SCH ×2 (07:58→22:11)
[2020-10-13] MEDS: oxyCODONE/APAP 10/325 1 TAB TABLET PO PRN ×3 (07:58→19:25)
[2020-10-13] MEDS: DOCUSATE SODIUM 100 MG CAPSULE. PO SCH (07:59)
[2020-10-13] MEDS: NYSTATIN 100,000 UNIT/GM TOPICAL CREAM 15GM TUBE. TP SCH ×2 (08:03→21:00)
--- NOTE | 2020-10-13 09:45 | PDOC ---
Infectious Disease Note Subjective: Subjective Patient is feeling much better Wound VAC come off last night Left lower extremity swelling redness has improved Vital Signs: Vital Signs Vital Signs Date Time Temp Pulse Resp B/P (MAP) Pulse Ox O2 Delivery O2 Flow Rate FiO2 10/13/20 07:58 Room Air 10/13/20 07:00 98.4 82 18 123/79 (94) 96 98.4 Physical Exam: PHYSICAL EXAM GENERAL: Alert and oriented gentleman, not in distress. VITAL SIGNS: Stable HEENT: Both pupils are round and reacting. No conjunctival lesion, no lesion in the mouth. NECK: Supple, no JVP, no lymphadenopathy. LUNGS: Clear. HEART: S1, S2 regular. ABDOMEN: Soft, nontender, no organomegaly, no tenderness, rebound or guarding. EXTREMITIES: Right lower extremity is normal. Left lower extremity is swollen. There is redness all the way up into the thigh and there is tender ,,, posterior ankle wound seen large wound bed healthy granulation tissue no tendon or bone exposed lymphadenopathy in the left groin. Overall left lower extremity is improving NEUROLOGIC: The patient is alert, awake and appropriate. No focal neurologic deficit. Medications: Inpatient Meds: Medications reviewed. Labs: Lab Laboratory Tests Test 10/13/20 04:45 White Blood Count 7.3 x10^3/uL (4.0-11.0) Red Blood Count 3.40 x10^6/uL (4.30-5.70) Hemoglobin 11.3 g/dL (13.0-17.5) Hematocrit 33.2 % (39.0-53.0) Mean Corpuscular Volume 98 fL (79-100) Mean Corpuscular Hemoglobin 33 pg (25-35) Mean Corpuscular Hemoglobin Concent 34 g/dL (31-37) Red Cell Distribution Width 15.5 % (11.5-14.5) Platelet Count 153 x10^3/uL (140-400) Neutrophils (%) (Auto) 50 % (31-73) Lymphocytes (%) (Auto) 37 % (24-48) Monocytes (%) (Auto) 11 % (0-9) Eosinophils (%) (Auto) 1 % (0-3) Basophils (%) (Auto) 1 % (0-3) Neutrophils # (Auto) 3.7 x10^3/uL (1.8-7.7) Lymphocytes # (Auto) 2.7 x10^3/uL (1.0-4.8) Monocytes # (Auto) 0.8 x10^3/uL (0.0-1.1) Eosinophils # (Auto) 0.1 x10^3/uL (0.0-0.7) Basophils # (Auto) 0.0 x10^3/uL (0.0-0.2) Sodium Level 139 mmol/L (136-145) Potassium Level 4.0 mmol/L (3.5-5.1) Chloride Level 105 mmol/L (98-107) Carbon Dioxide Level 28 mmol/L (21-32) Anion Gap 6 (6-14) Blood Urea Nitrogen 7 mg/dL (8-26) Creatinine 0.7 mg/dL (0.7-1.3) Estimated GFR (Cockcroft-Gault) 155.3 Glucose Level 113 mg/dL (70-99) Calcium Level 9.1 mg/dL (8.5-10.1) C-Reactive Protein, Quantitative 28.5 mg/L (0-3.3) Objective: Assessment: 1. Left lower extremity cellulitis on top of chronic edema from prior trauma. Improving 2. Ankle abscess s/p I and D October 08, cultures negative 2. Leukocytosis improving 3. Fever and chills. improved 4. Tinea infection between the toes. 5. Alcoholic liver disease. 6. Asymptomatic cholelithiasis. Plan: Plan of Care Continue ceftriaxone When ready for discharge will transition to p.o. antibiotics continue leg elevation. wound vac as directed Discussed with girlfriend at bedside Discussed with nursing staff KODI SHIPMAN MD Oct 13, 2020 09:45
--- NOTE | 2020-10-13 09:58 | PDOC ---
Date of Service: DATE: 10/13/20 TIME: 09:56 Subjective: Subjective: Leg feels worse, wound vac came off over the weekend. No GI complaints - says eating and stooling without issue. Objective: Vital Signs: Vital Signs Date Time Temp Pulse Resp B/P (MAP) Pulse Ox O2 Delivery O2 Flow Rate FiO2 10/13/20 07:58 Room Air 10/13/20 07:00 98.4 82 18 123/79 (94) 96 98.4 Labs: Laboratory Tests Test 10/13/20 04:45 White Blood Count 7.3 x10^3/uL Red Blood Count 3.40 x10^6/uL Hemoglobin 11.3 g/dL Hematocrit 33.2 % Mean Corpuscular Volume 98 fL Mean Corpuscular Hemoglobin 33 pg Mean Corpuscular Hemoglobin Concent 34 g/dL Red Cell Distribution Width 15.5 % Platelet Count 153 x10^3/uL Neutrophils (%) (Auto) 50 % Lymphocytes (%) (Auto) 37 % Monocytes (%) (Auto) 11 % Eosinophils (%) (Auto) 1 % Basophils (%) (Auto) 1 % Neutrophils # (Auto) 3.7 x10^3/uL Lymphocytes # (Auto) 2.7 x10^3/uL Monocytes # (Auto) 0.8 x10^3/uL Eosinophils # (Auto) 0.1 x10^3/uL Basophils # (Auto) 0.0 x10^3/uL Sodium Level 139 mmol/L Potassium Level 4.0 mmol/L Chloride Level 105 mmol/L Carbon Dioxide Level 28 mmol/L Anion Gap 6 Blood Urea Nitrogen 7 mg/dL Creatinine 0.7 mg/dL Estimated GFR (Cockcroft-Gault) 155.3 Glucose Level 113 mg/dL Calcium Level 9.1 mg/dL C-Reactive Protein, Quantitative 28.5 mg/L PE: GEN: NAD LUNGS: CTAB HEART: RRR ABD: S/ND/NT EXTREMITY: LLE wrapped NEURO/PSYCH: A & O 3 A/P: S/p left ankle I&D Alcohol overuse w/ elevated LFTs (fluctuating but trend favorable) and hepatosplenomegaly ACD -- Continue support per GI. No alcohol. Justicifation of Admission Dx: Justifications for Admission: Justification of Admission Dx: Yes ANDREE LOPES Oct 13, 2020 09:58 GIGI DALTON MD Oct 13, 2020 17:16
[2020-10-13] MEDS ORDERED: CYCLOBENZAPRINE 10 MG TABLET. PO PRN (10:15)
[2020-10-13 11:00] VITALS: BP 133/90
[2020-10-13] MEDS: cefTRIAXone IV Push 2 GM VIAL. IVP SCH (12:20)
[2020-10-13] MEDS ORDERED: CEFD300C PO (14:39)
--- NOTE | 2020-10-13 14:43 | PDOC3 ---
Discharge Summary Visit Information Date of Admission: Oct 06, 2020 Date of Discharge: Oct 14, 2020 Admitting Diagnosis: Ankle Wound Final Diagnosis Problems Medical Problems: (1) Cholecystitis Status: Acute (2) Elevated liver enzymes Status: Acute (3) Hyperbilirubinemia Status: Acute (4) Hyponatremia Status: Acute (5) Inguinal lymphadenopathy Status: Acute (6) Jaundice Status: Acute Brief Hospital Course Allergies Allergies Coded Allergies Type Severity Reaction Last Updated Verified I S O L A T I O N *CONTACT* Allergy Unknown 10/08/20 Yes No Known Allergies Allergy Unknown 10/08/20 Yes Vital Signs Vital Signs Date Time Temp Pulse Resp B/P (MAP) Pulse Ox O2 Delivery O2 Flow Rate FiO2 10/13/20 12:50 Room Air 10/13/20 11:00 98.0 81 18 133/90 (104) 97 98.0 Lab Results Laboratory Tests Test 10/12/20 07:30 10/13/20 04:45 White Blood Count 6.6 x10^3/uL (4.0-11.0) 7.3 x10^3/uL (4.0-11.0) Red Blood Count 3.35 x10^6/uL (4.30-5.70) 3.40 x10^6/uL (4.30-5.70) Hemoglobin 11.6 g/dL (13.0-17.5) 11.3 g/dL (13.0-17.5) Hematocrit 32.5 % (39.0-53.0) 33.2 % (39.0-53.0) Mean Corpuscular Volume 97 fL (79-100) 98 fL (79-100) Mean Corpuscular Hemoglobin 35 pg (25-35) 33 pg (25-35) Mean Corpuscular Hemoglobin Concent 36 g/dL (31-37) 34 g/dL (31-37) Red Cell Distribution Width 14.8 % (11.5-14.5) 15.5 % (11.5-14.5) Platelet Count 164 x10^3/uL (140-400) 153 x10^3/uL (140-400) Neutrophils (%) (Auto) 60 % (31-73) 50 % (31-73) Lymphocytes (%) (Auto) 29 % (24-48) 37 % (24-48) Monocytes (%) (Auto) 10 % (0-9) 11 % (0-9) Eosinophils (%) (Auto) 1 % (0-3) 1 % (0-3) Basophils (%) (Auto) 1 % (0-3) 1 % (0-3) Neutrophils # (Auto) 4.0 x10^3/uL (1.8-7.7) 3.7 x10^3/uL (1.8-7.7) Lymphocytes # (Auto) 1.9 x10^3/uL (1.0-4.8) 2.7 x10^3/uL (1.0-4.8) Monocytes # (Auto) 0.7 x10^3/uL (0.0-1.1) 0.8 x10^3/uL (0.0-1.1) Eosinophils # (Auto) 0.0 x10^3/uL (0.0-0.7) 0.1 x10^3/uL (0.0-0.7) Basophils # (Auto) 0.0 x10^3/uL (0.0-0.2) 0.0 x10^3/uL (0.0-0.2) Sodium Level 142 mmol/L (136-145) 139 mmol/L (136-145) Potassium Level 4.1 mmol/L (3.5-5.1) 4.0 mmol/L (3.5-5.1) Chloride Level 106 mmol/L (98-107) 105 mmol/L (98-107) Carbon Dioxide Level 30 mmol/L (21-32) 28 mmol/L (21-32) Anion Gap 6 (6-14) 6 (6-14) Blood Urea Nitrogen 5 mg/dL (8-26) 7 mg/dL (8-26) Creatinine 0.8 mg/dL (0.7-1.3) 0.7 mg/dL (0.7-1.3) Estimated GFR (Cockcroft-Gault) 133.1 155.3 BUN/Creatinine Ratio 6 (6-20) Glucose Level 98 mg/dL (70-99) 113 mg/dL (70-99) Calcium Level 9.0 mg/dL (8.5-10.1) 9.1 mg/dL (8.5-10.1) Total Bilirubin 1.8 mg/dL (0.2-1.0) Aspartate Amino Transf (AST/SGOT) 166 U/L (15-37) Alanine Aminotransferase (ALT/SGPT) 82 U/L (16-63) Alkaline Phosphatase 109 U/L (46-116) Total Protein 7.9 g/dL (6.4-8.2) Albumin 2.6 g/dL (3.4-5.0) Albumin/Globulin Ratio 0.5 (1.0-1.7) C-Reactive Protein, Quantitative 28.5 mg/L (0-3.3) Laboratory Tests Test 10/13/20 04:45 White Blood Count 7.3 x10^3/uL (4.0-11.0) Red Blood Count 3.40 x10^6/uL (4.30-5.70) Hemoglobin 11.3 g/dL (13.0-17.5) Hematocrit 33.2 % (39.0-53.0) Mean Corpuscular Volume 98 fL (79-100) Mean Corpuscular Hemoglobin 33 pg (25-35) Mean Corpuscular Hemoglobin Concent 34 g/dL (31-37) Red Cell Distribution Width 15.5 % (11.5-14.5) Platelet Count 153 x10^3/uL (140-400) Neutrophils (%) (Auto) 50 % (31-73) Lymphocytes (%) (Auto) 37 % (24-48) Monocytes (%) (Auto) 11 % (0-9) Eosinophils (%) (Auto) 1 % (0-3) Basophils (%) (Auto) 1 % (0-3) Neutrophils # (Auto) 3.7 x10^3/uL (1.8-7.7) Lymphocytes # (Auto) 2.7 x10^3/uL (1.0-4.8) Monocytes # (Auto) 0.8 x10^3/uL (0.0-1.1) Eosinophils # (Auto) 0.1 x10^3/uL (0.0-0.7) Basophils # (Auto) 0.0 x10^3/uL (0.0-0.2) Sodium Level 139 mmol/L (136-145) Potassium Level 4.0 mmol/L (3.5-5.1) Chloride Level 105 mmol/L (98-107) Carbon Dioxide Level 28 mmol/L (21-32) Anion Gap 6 (6-14) Blood Urea Nitrogen 7 mg/dL (8-26) Creatinine 0.7 mg/dL (0.7-1.3) Estimated GFR (Cockcroft-Gault) 155.3 Glucose Level 113 mg/dL (70-99) Calcium Level 9.1 mg/dL (8.5-10.1) C-Reactive Protein, Quantitative 28.5 mg/L (0-3.3) Brief Hospital Course Patient is a 35-year-old male with past medical history alcohol abuse, narcotic dependence, morbid obesity, who presents to the ED with complaints of left upper quadrant abdominal pain for the past week. He reports abdominal pain 7/10, with associated intermittent nausea and vomiting. Also notes left lower extremity swelling and pain for the past 2 days. He notes associated drainage from his left ankle, but is unsure if this is been purulent drainage. He does have a history of left lower extremity surgery requiring surgical fixation; states that this was complicated by MRSA infected hardware, which was subsequently removed. He reports regular heavy alcohol intake and takes daily Suboxone for history of narcotic dependence. Labs on admission showed WBC 14, platelets 119, sodium 132, CBG 114, AST 119, ALT 64, CRP 207.2, albumin 2.8, PT 16.1, INR 1.3. Abdominal ultrasound showed cholelithiasis, superimposed gallbladder distention and gallbladder wall thickening, suggestive of cholecystitis. He received broad-spectrum antibiotics and IV fluids. Will admit for further medical management. 10/14/20 Patient seen and examined at bedside. Reports feeling well pain well controlled. Planning for discharge today whether wound VAC approved or not. Outpatient antibiotics and pain control sent to his pharmacy. 10/13/20 Patient seen and examined at bedside. Remained afebrile minimal complaints on exam this morning. Eager to discharge. Change antibiotics to cefdinir for 7 more days. Contact wound care to see if wound VAC needs to be replaced prior to discharge. Plan of care discussed with bedside nurse 10/12/2020: Afebrile. Wound VAC became dislodged overnight. Wound was unpacked, clean, and packed again with sterile gauze by RN. States he is able to ambulate unassisted, denies need for PT. Continue leg elevation and IV antibiotics. Discussed with Dr. Allison, had a look at the foot with wound VAC removed, and wound looks clean. Patient may discharge tomorrow on oral antibiotics. 10/11/2020: complex fluid collection within the soft tissues along the posterior lateral ankle at the level of the distal tibia and fibular metaphyses which extends cephalad into the distal calf soft tissues measuring 4.0 cm in maximum thickness and 10.0 cm in maximum length. surrounding cellulitis favors that the fluid collection represents an abscess rather than postoperative seroma. Cholelithiasis. There is superimposed gallbladder distention and gallbladder wall thickening. This may be due to intrinsic liver disease or cholecystitis. Afebrile. Still with complaints of pain in his left lower extremity. re questing to speak with the appliance painter and refinisher, does have a severe narcotic dependency. Will give IV pain medications and keep n.p.o. until time of surgery. Continue IV antibiotics, per ID. S/p left ankle I&D 10-08 Alcohol overuse w/ elevated LFTs, thrombocytopenia, // hepatosplenomegaly plts 129K 29 MIN pt exam, chart review, > 50% of time spent with exam, chart review, pt care coordination 10/10/2020: complex fluid collection within the soft tissues along the posterior lateral ankle at the level of the distal tibia and fibular metaphyses which extends cephalad into the distal calf soft tissues measuring 4.0 cm in maximum thickness and 10.0 cm in maximum length. surrounding cellulitis favors that the fluid collection represents an abscess rather than postoperative seroma. Cholelithiasis. There is superimposed gallbladder distention and gallbladder wall thickening. This may be due to intrinsic liver disease or cholecystitis. Afebrile. Still with complaints of pain in his left lower extremity. requesting to speak with the appliance painter and refinisher, does have a severe narcotic dependency. Will give IV pain medications and keep n.p.o. until time of surgery. Continue IV antibiotics, per ID. S/p left ankle I&D 8 Alcohol overuse w/ elevated LFTs, thrombocytopenia, // hepatosplenomegaly plts 129K 28 MIN pt exam, chart review, > 50% of time spent with exam, chart review, pt care coordination 10/09/2020: complex fluid collection within the soft tissues along the posterior lateral ankle at the level of the distal tibia and fibular metaphyses which extends cephalad into the distal calf soft tissues measuring 4.0 cm in maximum thickness and 10.0 cm in maximum length. surrounding cellulitis favors that the fluid collection represents an abscess rather than postoperative seroma. Cholelithiasis. There is superimposed gallbladder distention and gallbladder wall thickening. This may be due to intrinsic liver disease or cholecystitis. Afebrile. Still with complaints of pain in his left lower extremity. requesting to speak with the appliance painter and refinisher, does have a severe narcotic dependency. Will give IV pain medications and keep n.p.o. until time of surgery. Continue IV antibiotics, per ID. S/p left ankle I&D 10-08 Alcohol overuse w/ elevated LFTs, thrombocytopenia, // hepatosplenomegaly plts 129K 38 MIN pt exam, chart review, > 50% of time spent with exam, chart review, pt care coordination 10/08/2020: Afebrile. Still with complaints of pain in his left lower extremity. Patient is requesting to speak with the appliance painter and refinisher, and I informed him that we do not have one available at this hospital. He does have a severe narcotic dependency. He is scheduled to have surgery today. Will give IV pain medications and keep n.p.o. until time of surgery. Continue IV antibiotics, per ID. Discharge Information Condition at Discharge: Improved Disposition/Orders: D/C to Home Scheduled Buprenorphine Hcl (Buprenorphine Hcl) 8 Mg Tab.subl, 8 MG SL DAILY for per pt for 30 Days, #30 (Reported) Entered as Reported by: MARIA ANTONIA ROE LPN on 10/06/20 0356 Last Taken: Unknown Dose on 10/04/20 Last Action: Converted on 10/06/20 0701 by ROSIE TODD MD Cefdinir (Cefdinir) 300 Mg Capsule, 300 MG PO BID for infection for 7 Days, #14 Prescribed by: JINNY BAR MD on 10/13/20 1789 Scheduled PRN Oxycodone/Apap 10-325 (Percocet 10-325 Mg Tablet ) 1 Each Tablet, 1-2 TAB PO PRN Q6HRS PRN for PAIN for 10 Days, #45 Prescribed by: JINNY BAR MD on 10/14/20 1004 Justicifation of Admission Dx: Justifications for Admission: Justification of Admission Dx: Yes JINNY BAR MD Oct 13, 2020 14:43
[2020-10-13 15:00] VITALS: BP 131/85
--- NOTE | 2020-10-13 16:16 | NUR ---
SW following. Discussed with RN, pt from home, room air, cardiac diet, COVID-19 negative. Pt not approved for home wound vac yet. Emilio Fraser RN running insurance to check for home health benefit. SW will continue to follow.
--- NOTE | 2020-10-13 17:27 | NUR ---
Wound Care Wound Type/Assessment: Follow up with patient to change wound vac dressing. Pt had inadvertently damaged his wound dressing on Tuesday and has had a wet to dry dressing in place since that time. Wound pictured and measured. Pt eager to return home, but wound vac application is still pending insurance approval, and home health hasn't been set up yet. Spoke with Flor AKERS who states that insurance has not approved home health yet. Encouraged pt and that it would be in his best interest to stay one more night in order to ensure all of his medical needs are arranged before discharge, and that leaving today could be consider "Against medical advice" and may jeopardize coverage of medical needs after DC. Wound vac held today pending uncertain discharge plan. Wound bed red, mostly non-granular tissue, with exposed tendon and muscle, slough and visible sutures. Periwound edematous. No other wounds noted on head to toe inspection. Treatment Recommendations/Plan: L posterior ankle: Packed with collagen to wound depth, expected to be dissolved by next dressing change. Filled wound cavity with ioplex (black foam) and covered with foam dressing. Change every 3 days. Encourage to hold DC until firm plan in place Education provided: Educated on wound dressing changes, keeping wound clean, and avoiding getting wound wet with shower, pool, or outdoor water sources. Educated on wound vac application process and approval process for home health. Offloading surface/device: Pt is independent with bed mobility Recommended Referrals/Tests: Home health Discharge Recommendations for dressings: If patient chooses to discharge before home health services and home wound vac have been arranged, he has been provided with instructions and dressings to last him about 2 weeks. He may call the wound clinic after discharge to arrange an appointment, pending insurance approval.
[2020-10-13] MEDS: HYDROcodone/APAP 10/325 1 TAB TABLET PO PRN (17:36)
[2020-10-13] MEDS ORDERED: MORPHINE SULFATE 4 MG/ML INJ. IV PRN (18:15)
[2020-10-13] MEDS ORDERED: oxyCODONE/APAP 10/325 1 TAB TABLET PO PRN (18:15)
[2020-10-13 19:00] VITALS: BP 115/79
[2020-10-13] MEDS: FAMOTIDINE 20 MG TABLET. PO SCH (22:11)
[2020-10-13] MEDS: CEFDINIR 300 MG CAPSULE PO SCH (22:11)
[2020-10-13] MEDS: ZOLPIDEM 5 MG TABLET. PO PRN (22:14)
[2020-10-13 23:00] VITALS: BP 128/87
[2020-10-14 03:00] VITALS: BP 133/87
[2020-10-14 04:51] LABS: BASO # 0.1 x10^3/uL (0.0-0.2); BASO % 1 % (0-3); EOS # 0.1 x10^3/uL (0.0-0.7); EOS % 2 % (0-3); HEMOGLOBIN 11.2 g/dL (13.0-17.5); LYMPH # 2.5 x10^3/uL (1.0-4.8); LYMPH % 37 % (24-48); MEAN CORPUSCULAR HEMOGLOBIN 33 pg (25-35); MEAN CORPUSCULAR HGB CONC 34 g/dL (31-37); MEAN CORPUSCULAR VOLUME 98 fL (79-100); MONO # 0.8 x10^3/uL (0.0-1.1); MONO % 11 % (0-9); NEUT # 3.4 x10^3/uL (1.8-7.7); NEUT % 49 % (31-73); PLATELET COUNT 156 x10^3/uL (140-400); RED BLOOD COUNT 3.37 x10^6/uL (4.30-5.70); WHITE BLOOD COUNT 6.9 x10^3/uL (4.0-11.0)
[2020-10-14 05:11] LABS: CALCIUM 9.1 mg/dL (8.5-10.1); CREATININE 0.8 mg/dL (0.7-1.3); GFR 133.1; POTASSIUM 4.1 mmol/L (3.5-5.1)
[2020-10-14] MEDS: HEPARIN for SUB-Q USE 5,000 UNIT/ML VIAL. SQ SCH ×2 (06:23→14:00)
[2020-10-14 07:00] VITALS: BP 125/82
--- NOTE | 2020-10-14 07:55 | SNU/HH DC ---
DISCHARGE WITH HOME HEALTH DISCHARGE INFORMATION: Discharge Date: Oct 14, 2020 Final Diagnosis: Problems Medical Problems: (1) Cholecystitis Status: Acute (2) Elevated liver enzymes Status: Acute (3) Hyperbilirubinemia Status: Acute (4) Hyponatremia Status: Acute (5) Inguinal lymphadenopathy Status: Acute (6) Jaundice Status: Acute Condition on Discharge: Stable CODE STATUS: Code Status: Full HOME HEALTH: Face to Face: I certify this patient is under my care and that I, or a nurse practitioner or physician's optometric assistant working with me, had a face to face encounter that meets the physician face to face encounter requirements with this patient on []. Longterm For: Assess & Educate Safety, Assess/Skilled Observatio, Wound Care, Wound Vac RN For Eval/Treatment: Yes Physical Therapy For: Evalulation/Treatment Occupational Therapy For: Evaluation/Treatment Pt Meets Homebound Status: Unsteady balance w/ amb,, Extreme weakness w/ amb., Fatigue w/ amb. POST DISCHARGE ORDERS: Activity Instructions for Disc: Activity as tolerated Weight Bearing Status after Di: As tolerated DIET AFTER DISCHARGE: Regular CHECKS AFTER DISCHARGE: Checks after discharge: Check blood press - daily, Check your Temp as needed TREATMENT/EQUIPMENT ORDERS: Adaptive Equipment Issued: None CERTIFICATION STATEMENT: Certification Statement: Certification Statement: Based on the above finding, I certify that this patient is confined to the home and needs intermittent custodial care, physical therapy and/or speech therapy, or continues to need occupational therapy.~ This patient is under my care, and I have initiated the establishment of the plan of care.~ This patient will be followed by myself or a community physician who will periodically review the plan of care. Home Meds Active Scripts Cefdinir (CEFDINIR) 300 Mg Capsule, 300 MG PO BID for infection for 7 Days, #14 CAP Prov:JINNY BAR MD 10/13/20 Reported Medications Buprenorphine Hcl (BUPRENORPHINE HCL) 8 Mg Tab.subl, 8 MG SL DAILY for per pt for 30 Days, #30 TAB 10/06/20 JINNY BAR MD Oct 14, 2020 07:55
[2020-10-14] MEDS: CEFDINIR 300 MG CAPSULE PO SCH (08:14)
[2020-10-14] MEDS: LACTOBACILLUS RHAMNOSUS GG 1 CAPSULE. PO SCH (08:14)
[2020-10-14] MEDS: oxyCODONE/APAP 10/325 1 TAB TABLET PO PRN ×2 (08:15→12:21)
--- NOTE | 2020-10-14 08:54 | PDOC ---
Infectious Disease Note Subjective: Subjective Patient is feeling much better Awaiting discharge later today Left lower extremity swelling and redness has improved Vital Signs: Vital Signs Vital Signs Date Time Temp Pulse Resp B/P (MAP) Pulse Ox O2 Delivery O2 Flow Rate FiO2 10/14/20 08:15 Room Air 10/14/20 07:00 98.4 82 18 125/82 (96) 95 98.4 Physical Exam: PHYSICAL EXAM GENERAL: Alert and oriented gentleman, not in distress. VITAL SIGNS: Stable HEENT: Both pupils are round and reacting. No conjunctival lesion, no lesion in the mouth. NECK: Supple, no JVP, no lymphadenopathy. LUNGS: Clear. HEART: S1, S2 regular. ABDOMEN: Soft, nontender, no organomegaly, no tenderness, rebound or guarding. EXTREMITIES: Right lower extremity is normal. Left lower extremity is swollen. There is redness all the way up into the thigh and there is tender ,,, po sterior ankle wound seen large wound bed healthy granulation tissue no tendon or bone exposed lymphadenopathy in the left groin. Overall left lower extremity is improving NEUROLOGIC: The patient is alert, awake and appropriate. No focal neurologic deficit. Medications: Inpatient Meds: Medications reviewed. Labs: Lab Laboratory Tests Test 10/14/20 04:33 White Blood Count 6.9 x10^3/uL (4.0-11.0) Red Blood Count 3.37 x10^6/uL (4.30-5.70) Hemoglobin 11.2 g/dL (13.0-17.5) Hematocrit 33.0 % (39.0-53.0) Mean Corpuscular Volume 98 fL (79-100) Mean Corpuscular Hemoglobin 33 pg (25-35) Mean Corpuscular Hemoglobin Concent 34 g/dL (31-37) Red Cell Distribution Width 15.0 % (11.5-14.5) Platelet Count 156 x10^3/uL (140-400) Neutrophils (%) (Auto) 49 % (31-73) Lymphocytes (%) (Auto) 37 % (24-48) Monocytes (%) (Auto) 11 % (0-9) Eosinophils (%) (Auto) 2 % (0-3) Basophils (%) (Auto) 1 % (0-3) Neutrophils # (Auto) 3.4 x10^3/uL (1.8-7.7) Lymphocytes # (Auto) 2.5 x10^3/uL (1.0-4.8) Monocytes # (Auto) 0.8 x10^3/uL (0.0-1.1) Eosinophils # (Auto) 0.1 x10^3/uL (0.0-0.7) Basophils # (Auto) 0.1 x10^3/uL (0.0-0.2) Sodium Level 138 mmol/L (136-145) Potassium Level 4.1 mmol/L (3.5-5.1) Chloride Level 104 mmol/L (98-107) Carbon Dioxide Level 30 mmol/L (21-32) Anion Gap 4 (6-14) Blood Urea Nitrogen 7 mg/dL (8-26) Creatinine 0.8 mg/dL (0.7-1.3) Estimated GFR (Cockcroft-Gault) 133.1 Glucose Level 102 mg/dL (70-99) Calcium Level 9.1 mg/dL (8.5-10.1) Objective: Assessment: 1. Left lower extremity cellulitis on top of chronic edema from prior trauma. Improving 2. Ankle abscess s/p I and D October 08, cultures negative 2. Leukocytosis improving 3. Fever and chills. improved 4. Tinea infection between the toes. 5. Alcoholic liver disease. 6. Asymptomatic cholelithiasis. Plan: Plan of Care Continue ceftriaxone When ready for discharge will transition to p.o.cefdinir for 10 days continue leg elevation. wound vac as directed Discussed with girlfriend at bedside Discussed with nursing staff KODI SHIPMAN MD Oct 14, 2020 08:54
[2020-10-14] MEDS: NYSTATIN 100,000 UNIT/GM TOPICAL CREAM 15GM TUBE. TP SCH (09:00)
[2020-10-14] MEDS: DOCUSATE SODIUM 100 MG CAPSULE. PO SCH (09:00)
--- NOTE | 2020-10-14 09:36 | PDOC ---
Date of Service: DATE: 10/14/20 TIME: 09:34 Subjective: Subjective: No GI complaints. Leg feels better. Objective: Objective: Reviewed chart - awaiting approval for wound vac prior to DC? Vital Signs: Vital Signs Date Time Temp Pulse Resp B/P (MAP) Pulse Ox O2 Delivery O2 Flow Rate FiO2 10/14/20 08:15 Room Air 10/14/20 07:00 98.4 82 18 125/82 (96) 95 98.4 Labs: Laboratory Tests Test 10/14/20 04:33 White Blood Count 6.9 x10^3/uL Red Blood Count 3.37 x10^6/uL Hemoglobin 11.2 g/dL Hematocrit 33.0 % Mean Corpuscular Volume 98 fL Mean Corpuscular Hemoglobin 33 pg Mean Corpuscular Hemoglobin Concent 34 g/dL Red Cell Distribution Width 15.0 % Platelet Count 156 x10^3/uL Neutrophils (%) (Auto) 49 % Lymphocytes (%) (Auto) 37 % Monocytes (%) (Auto) 11 % Eosinophils (%) (Auto) 2 % Basophils (%) (Auto) 1 % Neutrophils # (Auto) 3.4 x10^3/uL Lymphocytes # (Auto) 2.5 x10^3/uL Monocytes # (Auto) 0.8 x10^3/uL Eosinophils # (Auto) 0.1 x10^3/uL Basophils # (Auto) 0.1 x10^3/uL Sodium Level 138 mmol/L Potassium Level 4.1 mmol/L Chloride Level 104 mmol/L Carbon Dioxide Level 30 mmol/L Anion Gap 4 Blood Urea Nitrogen 7 mg/dL Creatinine 0.8 mg/dL Estimated GFR (Cockcroft-Gault) 133.1 Glucose Level 102 mg/dL Calcium Level 9.1 mg/dL PE: GEN: NAD - eating toast and eggs and serra LUNGS: CTAB HEART: RRR ABD: large, soft, non-tender EXTREMITY: LLE wrapped NEURO/PSYCH: A & O 3 A/P: S/p left ankle I&D Alcohol overuse w/ elevated LFTs and hepatosplenomegaly ACD -- Dc per primary. Quit drinking. Justicifation of Admission Dx: Justifications for Admission: Justification of Admission Dx: Yes ANDREE LOPES Oct 14, 2020 09:36
[2020-10-14] MEDS ORDERED: OXYC1TAB22 PO (10:04)
--- NOTE | 2020-10-14 10:17 | PDOC ---
[employer] PROGRESS NOTE Date of Service DOS: DATE: 10/13/20 TIME: 10:16 Chief Complaint Chief Complaint impression Acute cholecystitis Left lower extremity cellulitis Left inguinal lymphadenopathy Narcotic dependence Alcohol abuse Morbid obesity Severe malnutrition Plan: Continue antibiotics. leg elevation. Continue treatment with IV Rocephin, per ID Consultation placed to general surgery, GI, and ID Left inguinal lymphadenopathy seen on ultrasound likely reactive due to infectious process; recommend follow-up to ensure resolution. No evidence of DVT seen on ultrasound left lower extremity; will obtain echocardiogram. Resume home medications FEN - NPO PPX - Heparin FULL CODE Dispo - inpatient for above Patient names his (Ni Lee) as surrogate decision-maker History of Present Illness History of Present Illness Patient is a 35-year-old male with past medical history alcohol abuse, narcotic dependence, morbid obesity, who presents to the ED with complaints of left upper quadrant abdominal pain for the past week. He reports abdominal pain 7/10, with associated intermittent nausea and vomiting. Also notes left lower extremity swelling and pain for the past 2 days. He notes associated drainage from his left ankle, but is unsure if this is been purulent drainage. He does have a history of left lower extremity surgery requiring surgical fixation; states that this was complicated by MRSA infected hardware, which was subsequently removed. He reports regular heavy alcohol intake and takes daily Suboxone for history of narcotic dependence. Labs on admission showed WBC 14, platelets 119, sodium 132, CBG 114, AST 119, ALT 64, CRP 207.2, albumin 2.8, PT 16.1, INR 1.3. Abdominal ultrasound showed cholelithiasis, superimposed gallbladder distention and gallbladder wall thickening, suggestive of cholecystitis. He received broad-spectrum antibiotics and IV fluids. Will admit for further medical management. 10/13/20 Patient seen and examined at bedside. Remained afebrile minimal complaints on exam this morning. Eager to discharge. Change antibiotics to cefdinir for 7 more days. Contact wound care to see if wound VAC needs to be replaced prior to discharge. Plan of care discussed with bedside nurse 10/12/2020: Afebrile. Wound VAC became dislodged overnight. Wound was unpacked, clean, and packed again with sterile gauze by RN. States he is able to ambulate unassisted, denies need for PT. Continue leg elevation and IV antibiotics. Discussed with Dr. Allison, had a look at the foot with wound VAC removed, and wound looks clean. Patient may discharge tomorrow on oral antibiotics. 10/11/2020: complex fluid collection within the soft tissues along the posterior lateral ankle at the level of the distal tibia and fibular metaphyses which extends cephalad into the distal calf soft tissues measuring 4.0 cm in maximum thickness and 10.0 cm in maximum length. surrounding cellulitis favors that the fluid collection represents an abscess rather than postoperative seroma. Cholelithiasis. There is superimposed gallbladder distention and gallbladder wall thickening. This may be due to intrinsic liver disease or cholecystitis. Afebrile. Still with complaints of pain in his left lower extremity. requesting to speak with the cloth painter, does have a severe narcotic dependency. Will give IV pain medications and keep n.p.o. until time of surgery. Continue IV antibiotics, per ID. S/p left ankle I&D 10-08 Alcohol overuse w/ elevated LFTs, thrombocytopenia, // hepatosplenomegaly plts 129K 29 MIN pt exam, chart review, > 50% of time spent with exam, chart review, pt care coordination 10/10/2020: complex fluid collection within the soft tissues along the posterior lateral ankle at the level of the distal tibia and fibular metaphyses which extends cephalad into the distal calf soft tissues measuring 4.0 cm in maximum thickness and 10.0 cm in maximum length. surrounding cellulitis favors that the fluid collection represents an abscess rather than postoperative seroma. Cholelithiasis. There is superimposed gallbladder distention and gallbladder wall thickening. This may be due to intrinsic liver disease or cholecystitis. Afebrile. Still with complaints of pain in his left lower extremity. requesting to speak with the cloth painter, does have a severe narcotic dependency. Will give IV pain medications and keep n.p.o. until time of surgery. Continue IV antibiotics, per ID. S/p left ankle I&D 8 Alcohol overuse w/ elevated LFTs, thrombocytopenia, // hepatosplenomegaly plts 129K 28 MIN pt exam, chart review, > 50% of time spent with exam, chart review, pt care coordination 10/09/2020: complex fluid collection within the soft tissues along the posterior lateral ankle at the level of the distal tibia and fibular metaphyses which extends cephalad into the distal calf soft tissues measuring 4.0 cm in maximum thickness and 10.0 cm in maximum length. surrounding cellulitis favors that the fluid collection represents an abscess rather than postoperative seroma. Cholelithiasis. There is superimposed gallbladder distention and gallbladder wall thickening. This may be due to intrinsic liver disease or cholecystitis. Afebrile. Still with complaints of pain in his left lower extremity. requesting to speak with the cloth painter, does have a severe narcotic dependency. Will give IV pain medications and keep n.p.o. until time of surgery. Continue IV antibiotics, per ID. S/p left ankle I&D 10-08 Alcohol overuse w/ elevated LFTs, thrombocytopenia, // hepatosplenomegaly plts 129K 38 MIN pt exam, chart review, > 50% of time spent with exam, chart review, pt care coordination 10/08/2020: Afebrile. Still with complaints of pain in his left lower extremity. Patient is requesting to speak with the cloth painter, and I informed him that we do not have one available at this hospital. He does have a severe narcotic dependency. He is scheduled to have surgery today. Will give IV pain medications and keep n.p.o. until time of surgery. Continue IV antibiotics, per ID. 10/07/2020: Patient seen and evaluated. He was febrile overnight, T-max 100.6 F. Leukocytosis improving 11. today. Per general surgery, he is a poor surgical candidate and not recommending any surgical interventions at this time. CT left lower extremity yesterday showed fluid collection favoring an abscess; appreciate general surgery input in regards to possible left ankle abscess. Per GI, elevated LFTs likely secondary to history of alcohol abuse, but hepatitis panel pending for thoroughness. Antibiotics have been changed to Rocephin with topical nystatin cream twice daily, per ID. Patient with complaints of uncontrolled pain that he agrees is due to his history of narcotic abuse. Will increase PO pain medications. Vitals/I&O Vitals/I&O: Vital Signs Date Time Temp Pulse Resp B/P (MAP) Pulse Ox O2 Delivery O2 Flow Rate FiO2 10/14/20 08:45 Room Air 10/14/20 07:00 98.4 82 18 125/82 (96) 95 98.4 Physical Exam Physical Exam: GENERAL: Alert and oriented gentleman, not in distress. VITAL SIGNS: Stable HEENT: Both pupils are round and reacting. No conjunctival lesion, no lesion in the mouth. NECK: Supple, no JVP, no lymphadenopathy. LUNGS: Clear. HEART: S1, S2 regular. ABDOMEN: Soft, nontender, no organomegaly, no tenderness, rebound or guarding. EXTREMITIES: Right lower extremity is normal. Left lower extremity is swollen. There is redness all the way up into the thigh and there is tender ,,, posterior ankle wound seen large wound bed healthy granulation tissue no tendon or bone exposed lymphadenopathy in the left groin. Overall left lower extremity is improving NEUROLOGIC: The patient is alert, awake and appropriate. No focal neurologic deficit. General: Alert, Oriented X3, Cooperative, No acute distress Heart: Regular rate, Normal S1, Normal S2 Lungs: Clear Abdomen: Normal bowel sounds, Soft, No tenderness Extremities: Other (3+ edema left lower extremity) Skin: Other (left LE swollen) Labs Labs: Laboratory Tests Test 10/14/20 04:33 White Blood Count 6.9 x10^3/uL (4.0-11.0) Red Blood Count 3.37 x10^6/uL (4.30-5.70) Hemoglobin 11.2 g/dL (13.0-17.5) Hematocrit 33.0 % (39.0-53.0) Mean Corpuscular Volume 98 fL (79-100) Mean Corpuscular Hemoglobin 33 pg (25-35) Mean Corpuscular Hemoglobin Concent 34 g/dL (31-37) Red Cell Distribution Width 15.0 % (11.5-14.5) Platelet Count 156 x10^3/uL (140-400) Neutrophils (%) (Auto) 49 % (31-73) Lymphocytes (%) (Auto) 37 % (24-48) Monocytes (%) (Auto) 11 % (0-9) Eosinophils (%) (Auto) 2 % (0-3) Basophils (%) (Auto) 1 % (0-3) Neutrophils # (Auto) 3.4 x10^3/uL (1.8-7.7) Lymphocytes # (Auto) 2.5 x10^3/uL (1.0-4.8) Monocytes # (Auto) 0.8 x10^3/uL (0.0-1.1) Eosinophils # (Auto) 0.1 x10^3/uL (0.0-0.7) Basophils # (Auto) 0.1 x10^3/uL (0.0-0.2) Sodium Level 138 mmol/L (136-145) Potassium Level 4.1 mmol/L (3.5-5.1) Chloride Level 104 mmol/L (98-107) Carbon Dioxide Level 30 mmol/L (21-32) Anion Gap 4 (6-14) Blood Urea Nitrogen 7 mg/dL (8-26) Creatinine 0.8 mg/dL (0.7-1.3) Estimated GFR (Cockcroft-Gault) 133.1 Glucose Level 102 mg/dL (70-99) Calcium Level 9.1 mg/dL (8.5-10.1) Assessment and Plan Assessmemt and Plan Problems Medical Problems: (1) Cholecystitis Status: Acute (2) Elevated liver enzymes Status: Acute (3) Hyperbilirubinemia Status: Acute (4) Hyponatremia Status: Acute (5) Inguinal lymphadenopathy Status: Acute (6) Jaundice Status: Acute Comment Review of Relevant I have reviewed the following items chevy (where applicable) has been applied. Medications: Current Medications Medications (Trade) Dose Ordered Sig/Deangelo Route PRN Reason Start Time Stop Time Status Last Admin Dose Admin Cefdinir (Omnicef) 300 mg BID PO 10/13/20 21:00 10/14/20 09:26 DC 10/14/20 08:14 Oxycodone/ Acetaminophen (Percocet 10/325) 2 tab PRN Q4HRS PRN PO moderate-severe pain 10/13/20 18:15 10/14/20 08:15 Justifications for Admission Other Justification JINNY BAR MD Oct 14, 2020 10:17
[2020-10-14 11:00] VITALS: BP 111/85
[2020-10-14] MEDS ORDERED: cefTRIAXone IV Push 2 GM VIAL. IVP SCH (11:00)
--- NOTE | 2020-10-14 13:31 | NUR ---
SW following. Discussed with RN, Emilio monsivais pt's insurance - pt does not have a home health benefit. Wound care and pt notified. Discharge order for home with self care. SW will continue to follow.
--- NOTE | 2020-10-14 14:35 | NUR ---
Wound Care: Patient seen again today by wound care for dressing change and teaching. Patient's SO at bedside to learn dressing change. Dressing removed and wound cleansed and assessed. Wound redressed with Ioplex dressing as there was extra dressing left in room for dressing changes, covered with ABD pad and kerlix. SO assisted with dressing changes and all questions and concerns answered, she felt comfortable with continuing wound care for this patient. The wound vac application is still pending, will continue to follow up to see if vac is approved. Patient given our information regarding wound care. patient informed to follow up with surgeon following discharge. Bed lowered and call light in reach.
[2020-10-14 15:00] VITALS: BP 110/73
--- NOTE | 2020-10-14 16:30 | NUR ---
Pt discharged home with self care. Discharge instructions and prescriptions discussed with Pt and SO. IV removed. Wound care provided wound instructions. Pt assisted to wheelchair and was secured in car with SO.
== END 2020-10-14 16:32 | disposition home or self-care (01) | DRG 579 ==
LOC: ER 12:52 → 4 NORTH 23:02
PROVIDERS: ADMIT Internal Medicine; ATTEND Internal Medicine
PROC: 0LBT0ZZ Excision of Left Ankle Tendon, Open Approach (ICD-10-PCS; principal; 2020-10-08 18:30)
DX: L03.116 Cellulitis of left lower limb (principal); E43 Unspecified severe protein-calorie malnutrition; Z68.41 Body mass index [BMI] 40.0-44.9, adult; E87.1 Hypo-osmolality and hyponatremia; F11.20 Opioid dependence, uncomplicated; K80.00 Calculus of gallbladder with acute cholecystitis without obstruction; D68.9 Coagulation defect, unspecified; R85.0 Abnormal level of enzymes in specimens from digestive organs and abdominal cavity; L02.419 Cutaneous abscess of limb, unspecified; B35.9 Dermatophytosis, unspecified; D64.9 Anemia, unspecified; D69.6 Thrombocytopenia, unspecified; E66.01 Morbid (severe) obesity due to excess calories; I10 Essential (primary) hypertension; J45.909 Unspecified asthma, uncomplicated; K76.0 Fatty (change of) liver, not elsewhere classified; F10.20 Alcohol dependence, uncomplicated; Z88.5 Allergy status to narcotic agent; R59.0 Localized enlarged lymph nodes; R16.0 Hepatomegaly, not elsewhere classified; R79.82 Elevated C-reactive protein (CRP); R94.5 Abnormal results of liver function studies; K70.9 Alcoholic liver disease, unspecified; Z20.822 Contact with and (suspected) exposure to COVID-19
CPT/HCPCS: 36415; 71045; 73700; 76705; 80048; 80053; 80076; 81001; 82248; 82607; 83540; 83550; 83690; 85007; 85025; 85027; 85610; 86140; 86705; 86709; 86803; 87040; 87071; 87075; 87086; 87102; 87116; 87340; 93005; 93306; 93971; A4223; A4930; A6211; A6214; A6402; A6449; G0480; J0696; J1170; J1644; J2270; J2405; J2543; J2704; J3010; J3490; J7030; Q9956; U0003; U0005; 99285-25; G0378

== ENCOUNTER 2021-01-19 03:32 | Inpatient (IN) | payer OTHER ==
[~2021-01-19] VITALS: Ht 175.3 cm; Wt 123.6 kg
[2021-01-19] VITALS (7 sets, daily range): BP systolic 123–177; BP diastolic 66–101
[~2021-01-19 03:32] MED LIST: BUPR8TAB SL; CEFD300C PO; OXYC1TAB22 PO
[2021-01-19] MEDS ORDERED: ZOLP5TAB PO (03:41)
[2021-01-19] MEDS ORDERED: HALOPERIDOL LACTATE 5 MG/ML VIAL. IVP PRN (04:15)
[2021-01-19] MEDS ORDERED: diphenhydrAMINE 50 MG/ML VIAL IVP PRN (04:15)
[2021-01-19] MEDS ORDERED: ONDANSETRON PF 4 MG/2 ML VIAL. IVP PRN ×2 (04:15→09:00)
[2021-01-19] MEDS ORDERED: cloNIDine HCL 0.1 MG TABLET PO PRN (04:15)
[2021-01-19] MEDS ORDERED: fentaNYL PF VIAL 100 MCG/2 ML VIAL IVP PRN (04:30)
--- NOTE | 2021-01-19 08:49 | PDOC1 ---
History and Physical Date of Service: DOS: DATE: 01/19/21 TIME: 08:35 Chief Complaint: Problems: (1) N&V (nausea and vomiting) (2) Alcohol abuse (3) Hyperbilirubinemia (4) Elevated liver enzymes Chief Complain: Nausea vomiting History of Present Illness: HPI: Patient is a 35-year-old male presented to outside emergency room overnight due to 1 day history nausea vomiting. Reports about 5 episodes of bilious type vomit. Denies any blood in his vomitus. Says that him feeling some lightheaded and dizziness suspect due to dehydration. Presented to emergency room at [facility] yesterday. CT scan performed there showed cholelithiasis with a distended gallbladder with gallstone. Hepatosplenomegaly with hepatic steatosis. Follow-up abdominal ultrasound showed hepatomegaly, splenomegaly, and cholelithiasis without evidence of acute cholecystitis. Patient is recommended for transfer here for further work-up. Patient is a known alcoholic. Says he drinks a little more than a fifth of cinnamon whiskey a day. He has been heavily drinking since about 2014. Denies any history of complicated withdrawal. He says he was seen at about 4 weeks ago for a procedure that sounds like an ERCP. He said they told him they put a tube down his throat" and it was all normal and were able to brush a few stones away?" I asked him if they mentioned the word varices and he is uncertain. When I evaluated the patient she was resting in bed comfortably. He said the pain is kind of the most part epigastrium. He does get pain under the right side of his rib cage as well. Past Medical/Surgical History: PMH/PSH: History of MRSA VRE, alcohol abuse, Allergies: Allergies: Coded Allergies: I S O L A T I O N *CONTACT* (Verified Allergy, Unknown, 10/08/20) Hx MRSA, VRE No Known Allergies (Verified Allergy, Unknown, 10/08/20) Family History: Family History: Hypertension Social History: Social History: Reviewed with patient. To a drug tobacco use. Daily drinker approximately 1/5 of cinnamon whiskey a day. Current Medications: Current Medications Current Medications Multivitamins 10 ml/Thiamine HCl 100 mg/Folic Acid 1 mg/Sodium Chloride 1,011.2 ml @ 100 mls/ hr DAILY IV ; Start 01/19/21 at 09:00; Stop 01/23/21 at 19:07 Lorazepam (Ativan Inj) 2 mg PRN Q1HR PRN IV For CIWA 8-14 Last administered on 01/19/21at 04:34; Start 01/19/21 at 04:15 Haloperidol Lactate (Haldol Inj) 5 mg PRN Q4HRS PRN IVP Hallucinatns,Confusn,Delirium; Start 01/19/21 at 04:15 Diphenhydramine HCl (Benadryl) 25 mg PRN Q15MIN PRN IVP EPS symptoms 2'Haldol admin; Start 01/19/21 at 04:15 Clonidine HCl (Catapres) 0.1 mg PRN Q1HR PRN PO SBP > 180 or DBP > 100, MRX3; Start 01/19/21 at 04:15 Lorazepam (Ativan) 1 mg BID PO ; Start 01/19/21 at 09:00 Ondansetron HCl (Zofran) 4 mg PRN Q8HRS PRN IVP NAUSEA/VOMITING; Start 01/19/21 at 04:15 Fentanyl Citrate (Fentanyl 2ml Vial) 50 mcg PRN Q2HR PRN IVP PAIN; Start 01/19/21 at 04:30 Active Scripts Active Percocet 10-325 Mg Tablet (Oxycodone/Acetaminophen) 1 Each Tablet 1-2 Tab PO PRN Q6HRS PRN 10 Days Cefdinir 300 Mg Capsule 300 Mg PO BID 7 Days Reported Ambien (Zolpidem Tartrate) 5 Mg Tablet 5 Mg PO PRN QHS PRN Buprenorphine Hcl 8 Mg Tab.subl 8 Mg SL DAILY 30 Days ROS: Review of Systems Review of System Unless noted in HPI 14 point review of systems was negative Physical Exam: Vital Signs: Vital Signs Date Time Temp Pulse Resp B/P (MAP) Pulse Ox O2 Delivery O2 Flow Rate FiO2 01/19/21 07:00 97.6 106 20 123/78 (93) 93 Room Air 97.6 Physcial Exam: GEN: No apparent distress. Alert and oriented HEENT: Normal cephalic, atraumatic, external auditory canals are patent EYES: Extraocular muscles are intact, pupil are equally round and reactive to light and accommodation; no apparent scleral icterus MUSCULOSKELETAL: Obese. Normal range of motion ENDOCRINE: No thyromegaly was palpated LYMPHATICS: No cervical chain or axillary nodes were noted HEMATOPOIETIC: No bruising NECK: Supple, no JVD, no thyromegaly was noted LUNGS: Clear to auscultation in all lung gorman without rhonchi or wheezing HEART: RRR, S1, S2 present. Peripheral pulses intact, no obvious murmurs noted ABDOMEN: Tenderness to deep palpation in upper quadrant. No apparent organomegaly but difficult to assess with habitus EXTREMITIES: Without clubbing, cyanosis, or edema. Pedal pulses intact. Negative Homans sign NEUROLOGIC: Normal speech and tone. A&O x 3, moves all extremities, no obvious focal deficits PSYCHIATRIC: Normal affect, normal mood. Stable SKIN: No ulcerations or rashes, good skin turgor, no jaundice VASCULAR: Good capillary refill, neurovascular bundle appears to be intact Assessment/Plan Assessment/Plan Nausea vomiting secondary to alcohol abuse/withdrawal versus cholelithiasis, liver failure -Patient with 3-day history nausea vomiting epigastric pain. Known alcoholic for many years -Says he recently had a normal ERCP. At outside facility yesterday imaging cholelithiasis splenomegaly. No acute cholecystitis -LFTs from outside facility elevated. Will recheck here along with CBC and BMP -Consult to GI. Hold off on further imaging until seen by them. -We will keep n.p.o. -We will hold off on antibiotics for now. Okay to add if preferred by GI -PAT team consult -DVT prophylaxis -PPI -CIWA ordered Spent 18 minutes discussing advance care planning with this patient. Justifications for Admission Other Justification JINNY BAR MD Jan 19, 2021 08:49
[2021-01-19] MEDS: MULTIVIT INFUSN,ADULT 4,VIT K 10 ML, THIAMINE INJ 100 MG, FOLIC ACID INJ 1 MG in IV NOR... IV SCH (08:57)
[2021-01-19] MEDS ORDERED: ELECTROLYTE (NON-ICU) PROTOCOL. MC PRN (09:00)
[2021-01-19] MEDS ORDERED: oxyCODONE/APAP 5/325 1 TAB TABLET PO PRN ×2 (09:00)
[2021-01-19] MEDS ORDERED: CALCIUM CARBONATE 500 MG TAB.CHEW PO PRN (09:00)
[2021-01-19] MEDS ORDERED: PROCHLORPERAZINE 10 MG/2 ML VIAL. IVP PRN (09:00)
[2021-01-19] MEDS ORDERED: MAG HYDROX/ALUMINUM HYD/SIMETH 30 ML ORAL.SUSP PO PRN (09:00)
[2021-01-19] MEDS ORDERED: ACETAMINOPHEN 325 MG TABLET. PO PRN (09:00)
--- NOTE | 2021-01-19 11:30 | PDOC2 ---
GI CONSULT Date of Service: DATE: 01/19/21 TIME: 11:29 Reason For Consult: cholelithiasis, heavy alcohol use, elevated LFTs HPI: HPI: 35 y/o male who we saw in 10/2020 when he was admitted for LLE infection for elevated LFTs and h/o alcohol abuse. Viral hepatitis panel was negative and imaging noted hepatosplenomegaly/fatty liver and cholelithiasis. Anemia parameters c/w ACD. Was advised to stop drinking. Since then, was seen at for recurrent vomiting after drinking heavily. He tells me he was told his gallbladder wasn't a problem but he underwent a scope "that swept out some bile or rocks" and was advised to follow-up with the liver transplant team at in 03/2021. Says they recommended he stop drinking. Back again (sent from [facility]) w/ recurrent vomiting (bile) that began Tuesday after drinking heavily again. Same symptoms as in the past. He tells me never has abdominal pain with these symptoms. No diarrhea, constipation, hematochezia, melena, or hematemesis. He thinks vomiting is precipitated always by drinking. He has never been to AA, says support groups are hard to find. Currently feeling better and asking to eat. Denies reflux, dysphagia, and weight loss. No previous colonoscopy. No pancreas or PUD history. No longer on atbx for ankle. At [facility]: WBC 9.9, Hgb 13.1, MCV 94, plt 88, bili 4.8, direct 2.5, AST 131, ALT 45, Alk Phos 122, AG ratio 0.7, lipase 69, rapid COVID negative. Abd US: fatty liver, hepatomegaly, splenomegaly, cholelithiasis w/o cholecystitis. "Common bile duct: appears normal measures 5mm in diameter." CT A/P w/ contract: small fat-containing umbilical hernia, no obstruction, distended GB w/ gallstone, hepatosplenomegaly w/ diffuse hepatic steatosis. Also noted mild haziness surrounding peripancreatic fat and unremarkable large and small bowel. PMH: PMH: HTN, asthma, MRSA, VRE left ankle surgery/hardware/infections, left ankle I&D FH: Family History: No pertinent hx Social History: Smoke: No ALCOHOL: heavy Drugs: None ROS: GEN: Denies fevers, chills, sweats HEENT: Denies blurred vision, sore throat CV: Denies chest pain RESP: Denies shortness of air, cough GI: Per HPI : Denies hematuria, dysuria ENDO: Denies weight changes NEURO: Denies confusion, dizziness MSK: Denies weakness, joint pain/swelling SKIN: Denies jaundice, pruritus Vitals: Vitals: Vital Signs Date Time Temp Pulse Resp B/P (MAP) Pulse Ox O2 Delivery O2 Flow Rate FiO2 01/19/21 07:00 97.6 106 20 123/78 (93) 93 Room Air 97.6 Labs: Labs: see HPI Allergies: Coded Allergies: I S O L A T I O N *CONTACT* (Verified Allergy, Unknown, 10/08/20) Hx MRSA, VRE No Known Allergies (Verified Allergy, Unknown, 10/08/20) Medications: Current Medications Medications (Trade) Dose Ordered Sig/Deangelo Route PRN Reason Start Time Stop Time Status Last Admin Dose Admin Multivitamins 10 ml/Thiamine HCl 100 mg/Folic Acid 1 mg/Sodium Chloride 1,011.2 ml @ 100 mls/ hr DAILY IV 01/19/21 09:00 01/23/21 19:07 01/19/21 08:57 Lorazepam (Ativan Inj) 2 mg PRN Q1HR PRN IV For CIWA 8-14 01/19/21 04:15 01/19/21 04:34 Lorazepam (Ativan) 1 mg BID PO 01/19/21 09:00 01/19/21 08:54 Imaging: Imaging: per HPI PE: GEN: NAD HEENT: Atraumatic, PERRL LUNGS: CTAB anteriorly HEART: mildly tachycardic ABD: NABS, S/ND/NT EXTREMITY/SKIN: LLE wrapped NEURO/PSYCH: A & O 3 A/P: A/P: Recurrent vomiting Elevated LFTs - previously though in part related to alcohol, viral Hep panel negative 10/2020 Thrombocytopenia, rapid COVID negative Fatty liver, hepatosplenomegaly, cholelithiasis - CBD 5mm CRC screen - average risk Chronic pain, recently on buprenorphine -- He indicates recent eval at ?with ERCP? and advice that GB wasn't the issue. Plans to see Hepatology at in March. He thinks alcohol is the cause of vomiting and denies abdominal pain. Recheck of labs pending - follow LFTs. Vomiting has not recurred here and he's asking to eat. Okay to ADAT per GI. Stop drinking. Agree w/ PPI - change to PO as able. Will ask for records from [facility]. ANDREE LOPES Jan 19, 2021 11:30
[2021-01-19 12:04] LABS: BASO # 0.1 x10^3/uL (0.0-0.2); BASO % 1 % (0-3); EOS # 0.1 x10^3/uL (0.0-0.7); EOS % 1 % (0-3); HEMATOCRIT 34.6 % (39.0-53.0); HEMOGLOBIN 11.6 g/dL (13.0-17.5); LYMPH # 2.6 x10^3/uL (1.0-4.8); LYMPH % 33 % (24-48); MEAN CORPUSCULAR HEMOGLOBIN 32 pg (25-35); MEAN CORPUSCULAR HGB CONC 34 g/dL (31-37); MEAN CORPUSCULAR VOLUME 94 fL (79-100); MONO # 0.9 x10^3/uL (0.0-1.1); MONO % 11 % (0-9); NEUT # 4.5 x10^3/uL (1.8-7.7); NEUT % 55 % (31-73); PLATELET COUNT 75 x10^3/uL (140-400); RED BLOOD COUNT 3.68 x10^6/uL (4.30-5.70); RED CELL DISTRIBUTION WIDTH 14.9 % (11.5-14.5); WHITE BLOOD COUNT 8.1 x10^3/uL (4.0-11.0)
[2021-01-19 12:22] LABS: ALBUMIN 3.1 g/dL (3.4-5.0); ALBUMIN/GLOBULIN RATIO 0.7 (1.0-1.7); CALCIUM 8.6 mg/dL (8.5-10.1); CREATININE 0.7 mg/dL (0.7-1.3); GFR 155.3; POTASSIUM 3.6 mmol/L (3.5-5.1); TOTAL PROTEIN 7.5 g/dL (6.4-8.2)
[2021-01-19] MEDS: SENNOSIDES/DOCUSATE 8.6/50MG TABLET. PO SCH ×2 (12:35→21:00)
[2021-01-19] MEDS: HEPARIN for SUB-Q USE 5,000 UNIT/ML VIAL. SQ SCH ×2 (13:37→21:01)
--- NOTE | 2021-01-19 15:02 | NUR ---
SW following. Discussed with RN, Pt from home with moises, room air, NPO, ad jose daniel. PAT consult for etoh use/abuse. RN advised no other SW needs. SW will continue to follow.
[2021-01-19] MEDS ORDERED: ZOLPIDEM 5 MG TABLET. PO PRN (22:30)
[2021-01-20 03:00] VITALS: BP 133/88
[2021-01-20 05:38] LABS: DIRECT BILIRUBIN 2.2 mg/dL (0.0-0.2); TOTAL BILIRUBIN 4.6 mg/dL (0.2-1.0); TOTAL PROTEIN 7.6 g/dL (6.4-8.2)
[2021-01-20] MEDS: HEPARIN for SUB-Q USE 5,000 UNIT/ML VIAL. SQ SCH ×2 (05:44→13:49)
[2021-01-20 07:00] VITALS: BP 149/82
[2021-01-20] MEDS ORDERED: PANTOPRAZOLE IV PUSH 40 MG VIAL. IVP SCH (07:30)
[2021-01-20] MEDS: SENNOSIDES/DOCUSATE 8.6/50MG TABLET. PO SCH (07:43)
[2021-01-20] MEDS: MULTIVIT INFUSN,ADULT 4,VIT K 10 ML, THIAMINE INJ 100 MG, FOLIC ACID INJ 1 MG in IV NOR... IV SCH (09:25)
[2021-01-20] MEDS ORDERED: DICYCLOMINE HCL 10 MG CAPSULE PO PRN (09:45)
--- NOTE | 2021-01-20 09:54 | PDOC ---
Date of Service: DATE: 01/20/21 TIME: 09:49 Subjective: Subjective: Feels better. Eating w/o vomiting, still no abdominal pain. Feels well enough to go home - says he's trying to set up rehab ([facility]) "in a couple weeks." Requests something for sleep and anxiety on discharge. Says he starts drinking again when he can't sleep. Objective: Objective: [facility] records requested, none received. Vital Signs: Vital Signs Date Time Temp Pulse Resp B/P (MAP) Pulse Ox O2 Delivery O2 Flow Rate FiO2 01/20/21 07:50 Room Air 01/20/21 07:00 96.0 73 20 149/82 (104) 97 96.0 Labs: Laboratory Tests Test 01/19/21 11:10 01/20/21 04:00 White Blood Count 8.1 x10^3/uL Red Blood Count 3.68 x10^6/uL Hemoglobin 11.6 g/dL Hematocrit 34.6 % Mean Corpuscular Volume 94 fL Mean Corpuscular Hemoglobin 32 pg Mean Corpuscular Hemoglobin Concent 34 g/dL Red Cell Distribution Width 14.9 % Platelet Count 75 x10^3/uL Neutrophils (%) (Auto) 55 % Lymphocytes (%) (Auto) 33 % Monocytes (%) (Auto) 11 % Eosinophils (%) (Auto) 1 % Basophils (%) (Auto) 1 % Neutrophils # (Auto) 4.5 x10^3/uL Lymphocytes # (Auto) 2.6 x10^3/uL Monocytes # (Auto) 0.9 x10^3/uL Eosinophils # (Auto) 0.1 x10^3/uL Basophils # (Auto) 0.1 x10^3/uL Sodium Level 140 mmol/L Potassium Level 3.6 mmol/L Chloride Level 103 mmol/L Carbon Dioxide Level 27 mmol/L Anion Gap 10 Blood Urea Nitrogen 12 mg/dL Creatinine 0.7 mg/dL Estimated GFR (Cockcroft-Gault) 155.3 BUN/Creatinine Ratio 17 Glucose Level 96 mg/dL Calcium Level 8.6 mg/dL Total Bilirubin 5.0 mg/dL 4.6 mg/dL Aspartate Amino Transf (AST/SGOT) 96 U/L 87 U/L Alanine Aminotransferase (ALT/SGPT) 39 U/L 35 U/L Alkaline Phosphatase 106 U/L 98 U/L Total Protein 7.5 g/dL 7.6 g/dL Albumin 3.1 g/dL 3.0 g/dL Albumin/Globulin Ratio 0.7 Lipase 62 U/L Hepatitis A IgM Antibody Nonreactive Hepatitis B Surface Antigen Nonreactive Hepatitis B Core IgM Antibody Nonreactive Hepatitis C IgG Antibody Nonreactive Direct Bilirubin 2.2 mg/dL PE: GEN: NAD - sitting up on edge of bed, breakfast tray empty LUNGS: CTAB HEART: RRR ABD: S/ND/NT NEURO/PSYCH: A & O 3 A/P: Recurrent vomiting (resolved), alcohol abuse Elevated bili and AST - better ACD Fatty liver, hepatosplenomegaly, cholelithiasis (CBD 5mm) -- Encouraged rehab/abstinence. Okay to advance diet and consider DC soon per primary. Can follow-up w/ [facility] as planned. Dr. Bailey has also suggested outpt EGD - our office can call to arrange (and hopefully track down records from [facility] re: recent procedure there). Justicifation of Admission Dx: Justifications for Admission: Justification of Admission Dx: Yes ANDREE LOPES Jan 20, 2021 09:54
[2021-01-20 11:00] VITALS: BP 143/90
--- NOTE | 2021-01-20 12:27 | NUR ---
SW following. Discussed with RNWayne (GLADYS) met with pt yesterday, pt reports drinking a lot of whisky daily. Pt provided with resources for Juanpablo Tinoco, RSI and RADAC. Pt may look into some of those options. RN notified. Pt wants to go home today. SW will continue to follow.
[2021-01-20] MEDS ORDERED: DICY10CA3 PO (13:24)
[2021-01-20] MEDS ORDERED: ZOLP5TAB PO (13:24)
[2021-01-20] MEDS ORDERED: LORA-434 PO (13:24)
--- NOTE | 2021-01-20 13:26 | DISCH ---
DISCHARGE INSTRUCTIONS Condition on Discharge Condition on Discharge: Stable Activity After Discharge Activity Instructions for Disc: Activity as tolerated Bathing Instructions: Shower-keep dressing dry Weight Bearing Status after Di: As tolerated Diet after Discharge Diet after Discharge: Regular Wound Incision Care Wound/Incision Care: Change dressing Checks after Discharge Checks after discharge: Check blood press - daily, Check your Temp as needed Follow-Up Follow up with: PCP within 2 weeks of discharge Follow Up With: Gastroenterology as scheduled Treatment/Equipment after DC Adaptive Equipment Issued: None ZIA HERNÁNDEZ MD Jan 20, 2021 13:26
--- NOTE | 2021-01-20 15:15 | NUR ---
Wound/Ostomy Care Wound Type/Assessment: Wound care consult for eval of left ankle VLU. Pt known to wound care from previous admissions and outpatient setting. Pt's had applied a compression wrap at home to help with swelling. Wrap removed and leg was cleansed, left ankle wound appears to be healed, no open areas noted on head to toe skin assessment. Pt had a velcro wrap in room, teaching on how to applied it was done with him and his . Advise to wear compression garment daily. Wound care signing off. Pt stated that he is ready for discharge home.
--- NOTE | 2021-01-20 16:31 | NUR ---
Patient left around 1542 with a friend. IV discontinued without complications. 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 Discharge eduction done by the doctor and this nurse prior to dismissal. Medication sent to pharmacy by Dr Villatoro. Patient also requested zofran which was sent to his pharmacy last minute per Dr Villatoro. No concerns noted at discharge.
[2021-01-21] MEDS ORDERED: PANTOPRAZOLE 40 MG TABLET.DR. PO SCH (07:30)
[2021-01-21] MEDS ORDERED: MULTIVITAMIN with MINERAL TABLET. PO SCH (09:00)
[2021-01-21] MEDS ORDERED: FOLIC ACID 1 MG TABLET. PO SCH (09:00)
[2021-01-21] MEDS ORDERED: THIAMINE 100 MG TABLET. PO SCH (09:00)
--- NOTE | 2021-01-22 12:30 | PDOC3 ---
[facility]-Discharge Summary Date of Admission: Date of Admission: Jan 19, 2021 Date of Discharge: Date of Discharge: Jan 20, 2021 Discharge Diagnosis: Discharge Diagnosis: Recurrent vomiting Elevated LFTs - previously though in part related to alcohol, viral Hep panel n egative 10/2020 Thrombocytopenia, rapid COVID negative Fatty liver, hepatosplenomegaly, cholelithiasis - CBD 5mm CRC screen - average risk Chronic pain, recently on buprenorphine Hospital Course: Hospital Course: 35-year-old male presented to outside emergency room overnight due to 1 day history nausea vomiting. Reports about 5 episodes of bilious type vomit. Denies any blood in his vomitus. Says that him feeling some lightheaded and dizziness suspect due to dehydration. Presented to emergency room at [facility] yesterday. CT scan performed there showed cholelithiasis with a distended gallbladder with gallstone. Hepatosplenomegaly with hepatic steatosis. Follow- up abdominal ultrasound showed hepatomegaly, splenomegaly, and cholelithiasis without evidence of acute cholecystitis. Patient is recommended for transfer here for further work-up. Patient is a known alcoholic. Says he drinks a little more than a fifth of cinnamon whiskey a day. He has been heavily drinking since about 2014. Denies any history of complicated withdrawal. He says he was seen at about 4 weeks ago for a procedure that sounds like an ERCP. He said they told him they put a tube down his throat" and it was all normal and were able to brush a few stones away?" I asked him if they mentioned the word varices and he is uncertain. When I evaluated the patient she was resting in bed comfortably. He said the pain is kind of the most part epigastrium. He does get pain under the right side of his rib cage as well. Patient was seen and evaluated by GI and determined that patient does not need any ERCP procedures. There is still waiting for records from and patient can follow-up with GI as an outpatient. On day of discharge patient was clinically stable and did not have any abdominal pain. He was able to tolerate diet and his pain was well controlled. Rest of hospital course was uneventful Disposition: Disposition/Orders: D/C to Home Activity: Activity: Resume previous activity Diet: Diet: Soft Medications: Home Meds Active Scripts Lorazepam (ATIVAN) 1 Mg Tablet, 1 MG PO BID PRN for ANXIETY / AGITATION for 7 Days, #14 TAB Prov:ZIA HERNÁNDEZ MD 01/20/21 Dicyclomine Hcl (DICYCLOMINE HCL) 10 Mg Capsule, 10 MG PO PRN Q8HRS PRN for ABDOMINAL CRAMPS for 14 Days, #30 CAP Prov:ZIA HERNÁNDEZ MD 01/20/21 Zolpidem Tartrate (AMBIEN) 5 Mg Tablet, 2.5 MG PO PRN QHS PRN for INSOMNIA for 14 Days, #7 TAB 0 Refills Prov:ZIA HERNÁNDEZ MD 01/20/21 Reported Medications Buprenorphine Hcl (BUPRENORPHINE HCL) 8 Mg Tab.subl, 8 MG SL DAILY for per pt for 30 Days, #30 TAB 10/06/20 Discontinued Scripts Oxycodone/Apap 10-325 (PERCOCET 10-325 MG TABLET ) 1 Each Tablet, 1-2 TAB PO PRN Q6HRS PRN for PAIN for 10 Days, #45 TAB Prov:JINNY BAR MD 10/14/20 Cefdinir (CEFDINIR) 300 Mg Capsule, 300 MG PO BID for infection for 7 Days, #14 CAP Prov:JINNY BAR MD 10/13/20 Scheduled Buprenorphine Hcl (Buprenorphine Hcl), 8 MG SL DAILY, (Reported) Scheduled PRN Dicyclomine Hcl (Dicyclomine Hcl), 10 MG PO PRN Q8HRS PRN for ABDOMINAL CRAMPS Lorazepam (Ativan), 1 MG PO BID PRN for ANXIETY / AGITATION Zolpidem Tartrate (Ambien), 2.5 MG PO PRN QHS PRN for INSOMNIA Discontinued Medications Cefdinir (Cefdinir), 300 MG PO BID Oxycodone/Apap 10-325 (Percocet 10-325 Mg Tablet ), 1-2 TAB PO PRN Q6HRS PRN for PAIN Total Time: Total Time: Total time spent was 32 minutes in preparing scripts, discharge planning with SWI and RN and preparing this discharge summary Patient seen and examined on day of discharge. No acute abnormal findings. Justicifation of Admission Dx: Justifications for Admission: Justification of Admission Dx: Yes ZIA HERNÁNDEZ MD Jan 22, 2021 12:30
== END 2021-01-20 15:40 | disposition home or self-care (01) | DRG 446 ==
LOC: 5 NORTH 03:32 → 4 NORTH 23:19
PROVIDERS: ADMIT Internal Medicine; ATTEND Internal Medicine
DX: K80.20 Calculus of gallbladder without cholecystitis without obstruction (principal); D64.9 Anemia, unspecified; F10.10 Alcohol abuse, uncomplicated; F41.9 Anxiety disorder, unspecified; I10 Essential (primary) hypertension; J45.909 Unspecified asthma, uncomplicated; K42.9 Umbilical hernia without obstruction or gangrene; K72.90 Hepatic failure, unspecified without coma; K76.0 Fatty (change of) liver, not elsewhere classified; K82.8 Other specified diseases of gallbladder; Z20.822 Contact with and (suspected) exposure to COVID-19; Z82.49 Family history of ischemic heart disease and other diseases of the circulatory system; Z86.14 Personal history of Methicillin resistant Staphylococcus aureus infection; G89.29 Other chronic pain; D69.6 Thrombocytopenia, unspecified
CPT/HCPCS: 36415; 80053; 80076; 83690; 85025; 86705; 86709; 86803; 87340; C9113; J1644; J2060; J3411; J3490; J7030; G0378